=== PATIENT | male | born 1940 ===

== ENCOUNTER 2017-01-07 13:23 | Inpatient (IN) | payer OTHER, MEDICAID ==
[2017-01-07 13:24] VITALS: PULSE 66
[2017-01-07 13:33] VITALS: BMI 34.2
--- NOTE | 2017-01-07 14:10 | ED PDOC ---
Arrival/HPI - General Chief Complaint: Shortness Of Breath Time Seen by Provider: 01/07/17 14:01 Historian: Patient, Caregiver - Critical Care Critical Care Minutes: 30 minutes - History of Present Illness Narrative History of Present Illness (Text): 01/07/17 14:06 Ricardo Red is a 76 year old male complaining of dyspnea on exertion and shortness of breath for 2 weeks. Patient states that he experiences minor intermittent chest discomfort as well. Patient has no other complaint at this time. PMD: Dr. Morton Time/Duration: < week (2 weeks) Symptom Onset: Gradual Symptom Course: Unchanged Activities at Onset: Light Context: Home Past Medical History - Provider Review Nursing Documentation Reviewed: Yes - Infectious Disease Hx of Infectious Diseases: None - Tetanus Immunization Tetanus Immunization: Unknown - Cardiac Hx Cardiac Disorders: Yes Hx Atrial Fibrillation: Yes Hx Congestive Heart Failure: Yes Hx Hypertension: Yes Hx Pacemaker: Yes - Pulmonary Hx Chronic Obstructive Pulmonary Disease (COPD): Yes Hx Pneumonia: Yes Other/Comment: O2 dependent - Neurological Hx Neurological Disorder: No - HEENT Hx HEENT Disorder: (WEARS RX GLASSES) - Renal Hx Renal Failure: Yes (chronic) - Endocrine/Metabolic Hx Diabetes Mellitus Type 2: Yes - Hematological/Oncological Hx Blood Disorders: No - Integumentary Hx Dermatological Disorder: No - Musculoskeletal/Rheumatological Hx Musculoskeletal Disorders: Yes - Gastrointestinal Hx Gastrointestinal Disorders: No - Genitourinary/Gynecological Hx Genitourinary Disorders: Yes Hx Hematuria: Yes - Psychiatric Hx Psychophysiologic Disorder: No (H/O OF CIGARETTE SMOKING 2 CIG/DAY DURING HS ONLY) Hx Substance Use: No - Surgical History Hx Cardiac Catheterization: Yes - Anesthesia Hx Anesthesia Reactions: No Hx Malignant Hyperthermia: No - Suicidal Assessment Feels Threatened In Home Enviroment: No Family/Social History - Physician Review Nursing Documentation Reviewed: Yes Family/Social History: No Known Family HX Smoking Status: Former Smoker Hx Alcohol Use: No Hx Substance Use: No Hx Substance Use Treatment: No Allergies/Home Meds Allergies/Adverse Reactions: Allergies No Known Allergies Allergy (Verified 01/07/17 13:33) Home Medications: Home Meds Medication Instructions Recorded Confirmed Docusate Sodium [Peralta' Stool 100 mg PO TID 02/17/16 01/07/17 Softener Laxative] Furosemide [Lasix] 40 mg PO DAILY 02/17/16 01/07/17 Metolazone 2.5 mg PO BID 02/17/16 01/07/17 Potassium Chloride [K-Dur 20] 20 meq PO BID 02/17/16 01/07/17 Prednisone 5 mg PO DAILY 02/17/16 01/07/17 SITagliptin [Januvia] 50 mg PO DAILY 02/17/16 01/07/17 Warfarin Sodium [Jantoven] 3 mg PO DAILY 02/17/16 01/07/17 Physical Exam - Physical Exam Narrative Physical Exam (Text): - Review of Systems Constitutional: Normal. absent: Fatigue, Weight Change, Fevers Eyes: Normal ENT: Normal Respiratory: Dyspnea on exertion and shortness of breath. absent: Cough, Sputum Cardiovascular: absent: Palpitations, Syncope Gastrointestinal: Normal absent: Abdominal pain, Diarrhea, Nausea, Vomiting Genitourinary: Normal. absent: Dysuria, Frequency, Hematuria Musculoskeletal: Bilateral LE swelling. absent: Arthralgias, Back Pain, Neck Pain Skin: Normal Neurological: Normal absent: Focal Weakness Endocrine: Normal Hemo/Lymphatic: Normal Psychiatric: Normal - Physical exam Patient appears age appropriate, speaking full sentences without difficulty - Systems Exam Head: Present: Atraumatic, Normocephalic Pupils: Present: PERRL Extraocular Muscles: Present: EOMI Conjunctiva: Present: Normal Mouth: Present: Moist Mucous Membranes Neck: Present: Normal Range of Motion. No: MIDLINE TENDERNESS, Paraspinal Tenderness Respiratory/Chest: Bibasalar crackles. No: Accessory Muscle Use, Tachypnic Cardiovascular: Present: Regular Rate and Rhythm, Normal S1, S2, Peripheral Pulses Present. No: Murmurs Abdomen: Present: Normal Bowel Sounds, No: Tenderness, Peritoneal Signs, Rebound, Guarding, Distention Back: Present: Normal Inspection. No: Midline Tenderness, Paraspinal Tenderness Upper Extremity: Present: Normal Inspection. No: Cyanosis, Edema Lower Extremity: Trace bilateral pitting edema. No asymmetry, no tenderness to palpation. Neurological: Present: GCS=15, Speech Normal, cranial nerves II through XII fully intact with no cerebellar abnormality, neuro-sensory fully intact. No focal neurological deficits. Skin: Present: Warm, Dry, Normal Color. No: Rashes Lymphatic: Present: OX3, NI, NC Psychiatric: Present: Alert, Oriented x 3, Normal Insight, Normal Concentration Vital Signs Reviewed: Yes Vital Signs Temp Pulse Resp BP Pulse Ox 05/16/17 17:04 97 H 20 110/78 97 01/07/17 14:20 98 H 36 H 108/94 H 97 01/07/17 13:59 36 H 92 L 01/07/17 13:28 97.6 F 102 H 22 106/63 85 L Temperature: Afebrile Blood Pressure: Normal Pulse: Tachycardic Respiratory Rate: Normal Appearance: Positive for: Well-Appearing, Non-Toxic, Comfortable Pain Distress: None Mental Status: Positive for: Alert and Oriented X 3 Medical Decision Making ED Course and Treatment: 01/07/17 14:10 Impression: 76 year old male complaining of dyspnea on exertion and shortness of breath for two weeks. Differential Diagnosis included but are not limited to: CHF vs. Pneumonia vs. Anemia Plan: -- Chest X-ray -- Labs -- Aspirin -- Reassess and disposition Prior Visits: Notes and results from previous visits were reviewed. Patient last seen in the ED on 02/17/16 for a near syncopal episode 3 days before. Patient was admitted to Telemetry for further evaluation. Progress Notes: 01/07/17 14:55 Chest X-ray: Creator : Gene Wild MD Impression: Cardiomegaly, vascular congestion. b/l infiltrates. 01/07/17 16:[address] Lockett, who states that he will evaluate. 01/07/17 16:17 Patient did not receive initial fluid bolus due to suspected CHF. 01/07/17 17:03 pt tolerating bipap well accepted to the MICU by Dr. Lockett Case discussed with Dr. Morton, who is aware that patient is going to ICU under his service. - Critical Care Critical Care Minutes: 30 minutes - Lab Interpretations Lab Results: 01/07/17 14:21 01/07/17 14:21 Lab Results 01/07/17 16:45: pCO2 41, pO2 71.0 L, HCO3 34.3 H, ABG pH 7.53 H, ABG Total CO2 35.6 H, ABG O2 Saturation 94.3 L, ABG Base Excess 10.5 H, ABG Potassium 2.4 L*, Glucose 113 H, Lactate 1.2, FiO2 40.0, Inspiratory BiPAP 12, Sodium 130.0 L, Chloride 89.0 L, Arterial Blood Potassium 2.4 L* 01/07/17 14:21: Sodium 130 L, Potassium 3.7, Chloride 78 L, Carbon Dioxide > 40 H D, Anion Gap 16, BUN 80 H, Creatinine 1.7 H, Est GFR ( Amer) 48, Est GFR (Non-Af Amer) 40, Random Glucose 139 H, Calcium 9.9, Total Bilirubin 2.1 H, AST 34, ALT 25, Alkaline Phosphatase 122, Lactate Dehydrogenase 799 H, Total Creatine Kinase 44, Troponin I 0.03 D, NT-Pro-B Natriuret Pep 541 H, Total Protein 8.3, Albumin 4.5, Globulin 3.8, Albumin/Globulin Ratio 1.2 01/07/17 14:21: PT 17.4 H, INR 1.61 H, APTT 36.5 H 01/07/17 14:21: WBC 12.8 H, RBC 5.44, Hgb 17.1, Hct 49.7, MCV 91.4, MCH 31.4, MCHC 34.4, RDW 17.6 H, Plt Count 283, MPV 9.1, Gran % 71.6 H, Lymph % (Auto) 18.9 L, Divide % (Auto) 8.9 H, Eos % (Auto) 0.5 L, Baso % (Auto) 0.1, Gran # 9.15 H, Lymph # 2.4, Divide # 1.1 H, Eos # 0.1, Baso # 0.01 I have reviewed the lab results: Yes - RAD Interpretation Radiology Orders: 01/07/17 14:04 CHEST PORTABLE [RAD] Stat - Medication Orders Current Medication Orders: Albuterol/Ipratropium (Duoneb 3 Mg/0.5 Mg (3 Ml) Ud) 3 ml IH Q4H [facility] Last Admin: 01/07/17 21:06 Dose: 3 ml Enoxaparin Sodium (Lovenox) 100 mg SC Q12H [facility] PRN Reason: Protocol Last Admin: 01/07/17 21:02 Dose: 100 mg Sodium Chloride (Sodium Chloride 0.9%) 1,000 mls @ 100 mls/hr IV .Q10H [facility] Last Admin: 01/07/17 18:28 Dose: 100 mls/hr Ceftriaxone Sodium (Rocephin 1 Gram Ivpb) 1 gm in 100 mls @ 100 mls/hr IVPB DAILY [facility] PRN Reason: Protocol Azithromycin (Zithromax 500mg In Ns) 500 mg in 250 mls @ 167 mls/hr IVPB DAILY [facility] PRN Reason: Protocol Insulin Human Regular (Humulin R High) 0 units SC Q4H [facility] PRN Reason: Protocol Last Admin: 01/07/17 22:16 Dose: Not Given Non-Admin Reason: Blood Sugar Parameter Methylprednisolone (Solu-Medrol) 40 mg IVP Q8H [facility] Last Admin: 01/07/17 17:15 Dose: 40 mg Pantoprazole Sodium (Protonix Inj) 40 mg IVP DAILY [facility] Discontinued Medications Aspirin (Aspirin Chewable) 324 mg PO STAT STA Stop: 01/07/17 14:05 Last Admin: 01/07/17 14:12 Dose: 324 mg Furosemide (Lasix) 40 mg IVP STAT STA Stop: 01/07/17 14:51 Last Admin: 01/07/17 15:19 Dose: Not Given Non-Admin Reason: Patient Refused Comments: As per patient primary physician stated he is dehydrated and can not take this medication. Dr. Garvey notified. Ceftriaxone Sodium (Rocephin 1 Gram Ivpb) 1 gm in 100 mls @ 200 mls/hr IV STAT STA PRN Reason: Protocol Stop: 01/07/17 16:19 Last Admin: 01/07/17 16:10 Dose: 200 mls/hr Azithromycin (Zithromax 500mg In Ns) 500 mg in 250 mls @ 166.667 mls/hr IV STAT STA PRN Reason: Protocol Stop: 01/07/17 17:19 Last Admin: 01/07/17 16:45 Dose: 166.667 mls/hr Sodium Chloride (Sodium Chloride 0.9%) 1,000 mls @ 1,000 mls/hr IV .Q1H STA Stop: 01/07/17 17:16 Last Admin: 01/07/17 16:20 Dose: 1,000 mls/hr Sodium Chloride (Sodium Chloride 0.9%) 1,000 mls @ 999 mls/hr IV .Q1H1M STA Stop: 01/07/17 17:55 Last Admin: 01/07/17 17:29 Dose: 999 mls/hr Potassium Chloride (Potassium Chloride 20 Meq/100 Ml) 20 meq in 100 mls @ 50 mls/hr IVPB Q2H [facility] Stop: 01/07/17 21:14 Last Admin: 01/07/17 20:48 Dose: Potassium Chloride (Potassium Chloride Oral Soln) 40 meq PO ONCE ONE Stop: 01/07/17 20:50 Last Admin: 01/07/17 22:18 Dose: 40 meq Potassium Chloride (K-Dur 20 Meq Er Tab) 40 meq PO ONCE ONE Stop: 01/07/17 20:50 Last Admin: 01/07/17 22:22 Dose: - Scribe Statement The provider has reviewed the documentation as recorded by the Beck Mora Provider Scribe Attestation: All medical record entries made by the Beck were at my direction and personally dictated by me. I have reviewed the chart and agree that the record accurately reflects my personal performance of the history, physical exam, medical decision making, and the department course for this patient. I have also personally directed, reviewed, and agree with the discharge instructions and disposition. Disposition/Present on Arrival - Present on Arrival Any Indicators Present on Arrival: No History of DVT/PE: No History of Uncontrolled Diabetes: No Urinary Catheter: No History of Decub. Ulcer: No History Surgical Site Infection Following: None - Disposition Have Diagnosis and Disposition been Completed?: Yes Diagnosis: Pneumonia Disposition: HOSPITALIZED Disposition Time: 16:58 Patient Plan: Admission Condition: SERIOUS
[2017-01-07 14:22] LABS: ADD MANUAL DIFF? NO
[2017-01-07 14:24] LABS: BASO # 0.01 K/mm3 (0.0-2.0); BASO % 0.1 % (0.0-3.0); EOS # 0.1 (0.0-0.7); EOS % 0.5 % (1.5-5.0); GRAN # 9.15 (1.4-6.5); GRAN % 71.6 % (50.0-68.0); HEMATOCRIT 49.7 % (42.0-52.0); LYMPH # 2.4 (1.2-3.4); LYMPH % 18.9 % (22.0-35.0); MEAN CELL VOLUME 91.4 fL (80.0-105.0); MEAN CORPUSCULAR HEMOGLOBIN 31.4 pg (25.0-35.0); MEAN CORPUSCULAR HGB CONC 34.4 g/dl (31.0-37.0); MEAN PLATELET VOLUME 9.1 fl (7.0-11.0); MONO # 1.1 (0.1-0.6); MONO % 8.9 % (1.0-6.0); PLATELET COUNT 283 10^3/uL (120.0-450.0); RED CELL DISTRIBUTION WIDTH 17.6 % (11.5-14.5); WHITE BLOOD COUNT 12.8 10^3/ul (4.5-11.0)
[2017-01-07 14:34] LABS: ALB/GLOB RATIO 1.2 (1.1-1.8); ALKALINE PHOSPHATASE 122 U/L (38-133); ALT/SGPT 25 U/L (7-56); AST/SGOT 34 U/L (15-59); BILIRUBIN,TOTAL 2.1 mg/dL (0.2-1.3); BLOOD UREA NITROGEN 80 mg/dL (7-21); CALCIUM 9.9 mg/dL (8.4-10.5); CHLORIDE 78 mmol/L (98-107); GFR AFRICAN-AMERICAN 48; GLUCOSE,RANDOM 139 mg/dL (70-110); POTASSIUM 3.7 mmol/L (3.6-5.0); SODIUM 130 mmol/L (132-148); TOTAL PROTEIN 8.3 g/dL (5.8-8.3)
[2017-01-07 14:36] LABS: INR 1.61 (0.93-1.08); PARTIAL THROMBOPLASTIN TIME 36.5 Seconds (23.7-30.8)
[2017-01-07 14:39] LABS: CARBON DIOXIDE > 40 mmol/L (21-33)
[2017-01-07 14:46] LABS: TROPONIN I 0.03 ng/mL
--- NOTE | 2017-01-07 15:02 | RAD ---
HISTORY: cough COMPARISON: 02/17/2016 FINDINGS: LUNGS: Patchy bilateral lower lobe infiltrates. PLEURA: No significant pleural effusion identified, no pneumothorax apparent. CARDIOVASCULAR: Moderate cardiomegaly OSSEOUS STRUCTURES: No significant abnormalities. VISUALIZED UPPER ABDOMEN: Normal. OTHER FINDINGS: None. IMPRESSION: Patchy bilateral lower lobe infiltrates. Moderate cardiomegaly
[2017-01-07] MEDS ORDERED: Azithromycin 500MG/NS 250ml 500 MG/250 ML BAG IV STA (15:50)
[2017-01-07] MEDS ORDERED: cefTRIAXone 1 gm 1 GM/100 ML BAG IV STA (15:50)
[2017-01-07] MEDS ORDERED: Sodium Chloride 0.9% 1,000 ML IV STA ×2 (16:17→16:55)
[2017-01-07 16:52] LABS: ARTERIAL BLOOD GAS HCO3 34.3 mmol/L (21-28); ARTERIAL BLOOD GAS PH 7.53 (7.35-7.45)
[2017-01-07] MEDS ORDERED: Heparin25000 units/250ml 1/2NS 25,000 UNITS/250 ML BAG IV PRN (16:58)
[2017-01-07] MEDS: Albuterol-Ipratrop 3 mg / 0.5 (3 ml) UD IH SCH ×2 (17:15→21:06)
[2017-01-07] MEDS: MethylPREDNISolone 40 mg Vial IVP SCH (17:15)
[2017-01-07] MEDS: Insulin Reg-HIGH-Coverage SC SCH ×2 (17:21→22:16)
--- NOTE | 2017-01-07 17:50 | CON ---
DATE: 01/07/2017 This 76-year-old gentleman with history of COPD and related to pulmonary fibrosis, obstructive sleep apnea, coronary artery disease, DM atrial fibrillation on Coumadin, who presented with increased shortness of breath for last 2 weeks. He also had increased cough and sputum production. The sputum was of whitish in color. No nausea, no vomiting. No diarrhea, no constipation, no chest pain. PAST MEDICAL HISTORY: COPD, obstructive sleep apnea, pulmonary fibrosis, coronary artery disease, hypertension and atrial fibrillation on Coumadin. SOCIAL HISTORY: The patient is an ex-smoker. No alcohol or illicit drug abuse. FAMILY HISTORY: Noncontributory. HOME MEDICATIONS: Colace, Lasix, metolazone, prednisone, Januvia, warfarin. REVIEW OF SYSTEMS: Revealed 12 organ system other than mentioned in history of present illness is negative. PHYSICAL EXAMINATION: VITAL SIGNS: Heart rate 98, blood pressure 108/94, oxygen saturation 97% on BiPAP 12/6 with FiO2 40%. HEAD AND NECK: Atraumatic. LUNGS: A few wheezes bilaterally. HEART: Regular rate and rhythm. S1, S2 distant. ABDOMEN: Soft, nontender, nondistended. MUSCULOSKELETAL: No C/C/E. SKIN: Dry. PSYCHIATRIC: The patient is alert, awake, in mild respiratory distress due to shortness of breath. LABORATORY DATA: WBC 12.8, hemoglobin 17.1, platelet count 283. Sodium 130, potassium 3.7, chloride 78, carbon dioxide more than 40, BUN 80, creatinine 1.7. AST 34, ALT 25. ProBNP 541. Troponin 0.03. INR 1.621. ABG 7.53/41/71 Chest x-ray showed some chronic interstitial changes. Some patchy infiltrates, bibasilar. EKG showed no acute specific ischemic changes. ASSESSMENT AND PLAN: This is a 76-year-old gentleman with what appears to be chronic obstructive pulmonary disease exacerbation and coincidental contraction alkalosis. His proBNP only nearly normal (slight elevation may be due to cor pulmonale), while he appears to be dehydrated on physical exam, on Lasix at home and was put on BPAP in ER, which may have prevented some compensatory ventilatory adjustment. His bicarb more then 40. I will d/c BPAP and re-evaluate , stop Lasix and give 1L NS with subsequent maintainance IVF. I will continue bronchodilators, steroid taper and Abx. Will start septic workup with blood and urine culture, urine for legionella and strep ag, procalcitonin. Will start TAC with lovenox (discussed dose with pharmacist--despite CAITY 100 mg sc bid). GI prophylaxis. I would continue to target euvolemia, euglycemia, normothermia and oxygen saturation more than 90%. ccm time 40 min Dejuan Lockett MD cc: [id number] TT: 01/07/2017 17:50:07 Confirmation # [id number] Dictation # [id number] josé miguel MORAN
[2017-01-07] MEDS: Sodium Chloride 0.9% 1,000 ML IV SCH (18:28)
[2017-01-07] MEDS ORDERED: Potassium Chloride 40 mEq/30 ml LIQ UD PO ONE (20:49)
[2017-01-07] MEDS ORDERED: Potassium Chloride 20 mEq ER Tab PO ONE (20:49)
[2017-01-07] MEDS: Enoxaparin 100 mg Syringe SC SCH (21:02)
--- NOTE | 2017-01-07 22:29 | CARD ---
APPROVED REPORT EKG Measurement Heart [id number] <Conclusion> Normal sinus rhythm Left axis deviation Anteroseptal infarct, age undetermined Abnormal ECG
[2017-01-08] MEDS: Albuterol-Ipratrop 3 mg / 0.5 (3 ml) UD IH SCH ×7 (01:00→23:13)
[2017-01-08] MEDS: Insulin Reg-HIGH-Coverage SC SCH ×6 (01:00→23:05)
[2017-01-08] MEDS: MethylPREDNISolone 40 mg Vial IVP SCH ×3 (01:00→18:02)
[2017-01-08] MEDS: Sodium Chloride 0.9% 1,000 ML IV SCH (06:00)
[2017-01-08] MEDS: Enoxaparin 100 mg Syringe SC SCH ×2 (06:23→18:01)
[2017-01-08 06:45] LABS: ADD MANUAL DIFF? NO
[2017-01-08 07:04] LABS: BASO # 0.01 K/mm3 (0.0-2.0); BASO % 0.1 % (0.0-3.0); GRAN # 6.48 (1.4-6.5); GRAN % 86.1 % (50.0-68.0); HEMATOCRIT 45.2 % (42.0-52.0); LYMPH # 0.9 (1.2-3.4); LYMPH % 11.3 % (22.0-35.0); MEAN CELL VOLUME 91.5 fL (80.0-105.0); MEAN CORPUSCULAR HEMOGLOBIN 30.4 pg (25.0-35.0); MEAN CORPUSCULAR HGB CONC 33.2 g/dl (31.0-37.0); MONO # 0.2 (0.1-0.6); MONO % 2.5 % (1.0-6.0); PLATELET COUNT 252 10^3/uL (120.0-450.0); RED CELL DISTRIBUTION WIDTH 17.7 % (11.5-14.5); WHITE BLOOD COUNT 7.5 10^3/ul (4.5-11.0)
[2017-01-08 07:16] LABS: ALB/GLOB RATIO 1.1 (1.1-1.8); BILIRUBIN,TOTAL 1.4 mg/dL (0.2-1.3); POTASSIUM 3.3 mmol/L (3.6-5.0)
[2017-01-08 08:16] LABS: MAGNESIUM 2.4 mg/dL (1.7-2.2)
[2017-01-08 08:19] LABS: ARTERIAL BLOOD GAS HCO3 30.6 mmol/L (21-28); ARTERIAL BLOOD GAS O2 CAPACITY 20.6 mL/dl (16-24); ARTERIAL BLOOD GAS O2 CONTENT 19.2 ML/dl (15-23); ARTERIAL BLOOD GAS PH 7.45 (7.35-7.45); ARTERIAL BLOOD HGB O2 SAT 92.1 % (95.0-98.0); HHB 6.8 % (0-5)
[2017-01-08] MEDS: Potassium Chloride 20 mEq ER Tab PO SCH ×4 (10:45→21:00)
[2017-01-08] MEDS: cefTRIAXone 1 gm 1 GM/100 ML BAG IVPB SCH (10:48)
[2017-01-08] MEDS: Azithromycin 500MG/NS 250ml 500 MG/250 ML BAG IVPB SCH (10:49)
--- NOTE | 2017-01-08 13:20 | CP.CCUPN ---
<Manuel Childers - Last Filed: 01/08/17 13:14> CCU Subjective - Physician Review Events Since Last Encounter (Free Text): 01/08/17 13:16 76 year old male with a PMH of CAD, HTN, DEJAN, DM, A-fib on coumadin, and CHF who presented to [facility] [place] [facility] on 01/07/17 with complaints of shortness of breath for 2 weeks and cough productive of white sputum. Patient was seen and examined at bedside with at bedside. Patient is doing much better today and states that his breathing has improved. Patient denies any more productive cough or any other complaints at this time. at bedside had multiple questions, all of which were welcome and answered to her satisfaction. CCU Objective - Vital Signs / Intake & Output Intake and Output (Last 8hrs): Intake & Output 01/07/17 01/08/17 01/08/17 22:59 06:59 14:59 Intake Total 3100 Output Total 700 Balance 2400 Weight 99.201 kg 98.974 kg Intake: IV 3000 Right Hand 3000 Oral 100 Output: Urine 700 Urine, Voided 700 Other: # Bowel Movements 0 - Physical Exam Head: Positive for: Atraumatic, Normocephalic Pupils: Positive for: PERRL Extroacular Muscles: Positive for: EOMI Conjunctiva: Positive for: Normal. Negative for: Injected, Icteric Ears: Positive for: Normal Mouth: Positive for: Moist Mucous Membranes, Normal Tounge. Negative for: Dry Pharnyx: Positive for: Normal. Negative for: ERYTHEMA, EXUDATE Nose (External): Positive for: Atraumatic Neck: Positive for: Trachea Midline. Negative for: JVD, Lymphadenopathy Respiratory/Chest: Positive for: Clear to Auscultation, Wheezes (mild bibasilar) , Decreased Breath Sounds (mildly throughout). Negative for: Respiratory Distress, Accessory Muscle Use Cardiovascular: Positive for: Normal S1, S2, Irregular Rhythm. Negative for: Murmurs, Rub, Gallop Abdomen: Positive for: Normal Bowel Sounds. Negative for: Tenderness, Distention, Peritoneal Signs, Guarding Back: Negative for: Midline Tenderness, Paraspinal Tenderness Upper Extremity: Positive for: Normal Inspection, NORMAL PULSES, Capillary Refill < 2s. Negative for: Cyanosis, Edema Lower Extremity: Positive for: Normal Inspection, NORMAL PULSES, Capillary Refill < 2 s. Negative for: Edema, CALF TENDERNESS Neurological: Positive for: GCS=15, CN II-XII Intact, Speech Normal Skin: Positive for: Warm, Dry, Normal Color. Negative for: Rashes - Medications Active Medications: Active Medications Generic Name Dose Route Start Last Admin Trade Name Freq PRN Reason Stop Dose Admin Albuterol/Ipratropium 3 ml 01/07/17 17:00 01/08/17 07:59 Duoneb 3 Mg/0.5 Mg (3 Ml) Ud IH 3 ml Q4H ZEKE Administration Enoxaparin Sodium 100 mg 01/07/17 18:30 01/08/17 06:23 Lovenox SC 100 mg Q12H ZEKE Administration Protocol Ceftriaxone Sodium 1 gm in 100 mls @ 100 mls/hr 01/08/17 10:00 01/08/17 10:48 Rocephin 1 Gram Ivpb IVPB 100 mls/hr DAILY ZEKE Administration Protocol Azithromycin 500 mg in 250 mls @ 167 mls/hr 01/08/17 10:00 01/08/17 10:49 Zithromax 500mg In Ns IVPB 167 mls/hr DAILY ZEKE Administration Protocol Insulin Human Regular 0 units 01/08/17 11:30 01/08/17 12:16 Humulin R High SC 7 units ACHS ZEKE Administration Protocol Methylprednisolone 40 mg 01/07/17 17:00 01/08/17 10:52 Solu-Medrol IVP 40 mg Q8H ZEKE Administration Pantoprazole Sodium 40 mg 01/08/17 10:00 01/08/17 10:47 Protonix Inj IVP 40 mg DAILY ZEKE Administration Potassium Chloride 40 meq 01/08/17 08:00 01/08/17 12:19 K-Dur 20 Meq Er Tab PO 01/08/17 20:01 40 meq Q4 ZEKE Administration - Patient Studies Lab Studies: Lab Studies 01/08/17 01/08/17 01/08/17 Range/Units 08:10 06:10 06:10 WBC 7.5 D (4.5-11.0) 10^3/ul RBC 4.94 (3.5-6.1) 10^6/uL Hgb 15.0 (14.0-18.0) gm/dL Hct 45.2 (42.0-52.0) % MCV 91.5 (80.0-105.0) fL MCH 30.4 (25.0-35.0) pg MCHC 33.2 (31.0-37.0) g/dl RDW 17.7 H (11.5-14.5) % Plt Count 252 (120.0-450.0) 10^3/uL MPV 9.0 (7.0-11.0) fl Gran % 86.1 H (50.0-68.0) % Lymph % (Auto) 11.3 L (22.0-35.0) % Branch % (Auto) 2.5 (1.0-6.0) % Eos % (Auto) 0.0 L (1.5-5.0) % Baso % (Auto) 0.1 (0.0-3.0) % Gran # 6.48 (1.4-6.5) Lymph # 0.9 L (1.2-3.4) Branch # 0.2 (0.1-0.6) Eos # 0.0 (0.0-0.7) Baso # 0.01 (0.0-2.0) K/mm3 pCO2 44 (35-45) mm/Hg pO2 65.0 L (80-100) mm/Hg HCO3 30.6 H (21-28) mmol/L ABG pH 7.45 (7.35-7.45) ABG Total CO2 32.0 H (22-28) mmol.L ABG O2 Saturation 93.1 L (95-98) % ABG O2 Content 19.2 (15-23) ML/dl ABG Base Excess 5.7 H (-2.0-3.0) mmol/L ABG Hemoglobin 14.8 (11.7-17.4) g/dL ABG Carboxyhemoglobin 1.0 (0.5-1.5) % POC ABG HHb (Measured) 6.8 H (0-5) % ABG Methemoglobin 0.0 (0.0-3.0) % ABG O2 Capacity 20.6 (16-24) mL/dl Hgb O2 Saturation 92.1 L (95.0-98.0) % FiO2 28.0 % Sodium 135 (132-148) mmol/L Potassium 3.3 L (3.6-5.0) mmol/L Chloride 89 L (98-107) mmol/L Carbon Dioxide 33 (21-33) mmol/L Anion Gap 16 (10-20) BUN 61 H (7-21) mg/dL Creatinine 1.4 (0.5-1.4) mg/dL Est GFR ( Amer) 60 Est GFR (Non-Af Amer) 50 Random Glucose 198 H (70-110) mg/dL Calcium 9.0 (8.4-10.5) mg/dL Magnesium 2.4 H (1.7-2.2) mg/dL Total Bilirubin 1.4 H (0.2-1.3) mg/dL AST 31 (15-59) U/L ALT 28 (7-56) U/L Alkaline Phosphatase 101 (38-133) U/L Total Protein 7.0 (5.8-8.3) g/dL Albumin 3.7 (3.0-4.8) g/dL Globulin 3.3 gm/dL Albumin/Globulin Ratio 1.1 (1.1-1.8) Procalcitonin (0.19-0.49) NG/ML 01/07/17 Range/Units 18:00 WBC (4.5-11.0) 10^3/ul RBC (3.5-6.1) 10^6/uL Hgb (14.0-18.0) gm/dL Hct (42.0-52.0) % MCV (80.0-105.0) fL MCH (25.0-35.0) pg MCHC (31.0-37.0) g/dl RDW (11.5-14.5) % Plt Count (120.0-450.0) 10^3/uL MPV (7.0-11.0) fl Gran % (50.0-68.0) % Lymph % (Auto) (22.0-35.0) % Branch % (Auto) (1.0-6.0) % Eos % (Auto) (1.5-5.0) % Baso % (Auto) (0.0-3.0) % Gran # (1.4-6.5) Lymph # (1.2-3.4) Branch # (0.1-0.6) Eos # (0.0-0.7) Baso # (0.0-2.0) K/mm3 pCO2 (35-45) mm/Hg pO2 (80-100) mm/Hg HCO3 (21-28) mmol/L ABG pH (7.35-7.45) ABG Total CO2 (22-28) mmol.L ABG O2 Saturation (95-98) % ABG O2 Content (15-23) ML/dl ABG Base Excess (-2.0-3.0) mmol/L ABG Hemoglobin (11.7-17.4) g/dL ABG Carboxyhemoglobin (0.5-1.5) % POC ABG HHb (Measured) (0-5) % ABG Methemoglobin (0.0-3.0) % ABG O2 Capacity (16-24) mL/dl Hgb O2 Saturation (95.0-98.0) % FiO2 % Sodium (132-148) mmol/L Potassium (3.6-5.0) mmol/L Chloride (98-107) mmol/L Carbon Dioxide (21-33) mmol/L Anion Gap (10-20) BUN (7-21) mg/dL Creatinine (0.5-1.4) mg/dL Est GFR ( Amer) Est GFR (Non-Af Amer) Random Glucose (70-110) mg/dL Calcium (8.4-10.5) mg/dL Magnesium (1.7-2.2) mg/dL Total Bilirubin (0.2-1.3) mg/dL AST (15-59) U/L ALT (7-56) U/L Alkaline Phosphatase (38-133) U/L Total Protein (5.8-8.3) g/dL Albumin (3.0-4.8) g/dL Globulin gm/dL Albumin/Globulin Ratio (1.1-1.8) Procalcitonin 0.05 L (0.19-0.49) NG/ML Laboratory Results - last 24 hr 01/07/17 01/08/17 01/08/17 18:00 06:10 06:10 WBC 7.5 D RBC 4.94 Hgb 15.0 Hct 45.2 MCV 91.5 MCH 30.4 MCHC 33.2 RDW 17.7 H Plt Count 252 MPV 9.0 Gran % 86.1 H Lymph % (Auto) 11.3 L Branch % (Auto) 2.5 Eos % (Auto) 0.0 L Baso % (Auto) 0.1 Gran # 6.48 Lymph # 0.9 L Branch # 0.2 Eos # 0.0 Baso # 0.01 pCO2 pO2 HCO3 ABG pH ABG Total CO2 ABG O2 Saturation ABG O2 Content ABG Base Excess ABG Hemoglobin ABG Carboxyhemoglobin POC ABG HHb (Measured) ABG Methemoglobin ABG O2 Capacity Hgb O2 Saturation FiO2 Sodium 135 Potassium 3.3 L Chloride 89 L Carbon Dioxide 33 Anion Gap 16 BUN 61 H Creatinine 1.4 Est GFR ( Amer) 60 Est GFR (Non-Af Amer) 50 Random Glucose 198 H Calcium 9.0 Magnesium 2.4 H Total Bilirubin 1.4 H AST 31 ALT 28 Alkaline Phosphatase 101 Total Protein 7.0 Albumin 3.7 Globulin 3.3 Albumin/Globulin Ratio 1.1 Procalcitonin 0.05 L 01/08/17 08:10 WBC RBC Hgb Hct MCV MCH MCHC RDW Plt Count MPV Gran % Lymph % (Auto) Branch % (Auto) Eos % (Auto) Baso % (Auto) Gran # Lymph # Branch # Eos # Baso # pCO2 44 pO2 65.0 L HCO3 30.6 H ABG pH 7.45 ABG Total CO2 32.0 H ABG O2 Saturation 93.1 L ABG O2 Content 19.2 ABG Base Excess 5.7 H ABG Hemoglobin 14.8 ABG Carboxyhemoglobin 1.0 POC ABG HHb (Measured) 6.8 H ABG Methemoglobin 0.0 ABG O2 Capacity 20.6 Hgb O2 Saturation 92.1 L FiO2 28.0 Sodium Potassium Chloride Carbon Dioxide Anion Gap BUN Creatinine Est GFR ( Amer) Est GFR (Non-Af Amer) Random Glucose Calcium Magnesium Total Bilirubin AST ALT Alkaline Phosphatase Total Protein Albumin Globulin Albumin/Globulin Ratio Procalcitonin Fingerstick Blood Sugar Results: 260 Results Reviewed to Date: Yes Review of Systems - EENT Eyes: absent: Blind Spots, Blurred Vision Ears: absent: Ear Discharge, Ear Pain Nose/Mouth/Throat: absent: Epistaxis, Nasal Congestion - Cardiovascular Cardiovascular: absent: Chest Pain, Palpitations - Respiratory Respiratory: absent: Cough, Dyspnea - Gastrointestinal Gastrointestinal: absent: Abdominal Pain, Nausea, Vomiting - Genitourinary Genitourinary: absent: Dysuria, Hematuria - Musculoskeletal Musculoskeletal: absent: Stiffness, Tingling - Integumentary Integumentary: absent: Pruritus, Rash - Neurological Neurological: absent: Paresthesias, Tingling, Tremor Critical Care Progress Note - Prophylaxis GI Prophylaxis GI: PPI - Nutrition Nutrition: Nutrition Category Date Time Status Consistent Carbohydrate [DIET] Diets 01/08/17 Breakfast Ordered Assessment/Plan - Assessment and Plan (Free Text) Assessment: 76 year old male with a PMH of CAD, HTN, DEJAN, DM, A-fib on coumadin, and CHF who presented with complaints of shortness of breath for 2 weeks and cough productive of white sputum, found to have contraction alkalosis with bilateral patchy infiltrates. Plan: Neurological AAOx4, nonfocal, neurologically intact Cardiovascular Hemodynamically stable at this time Pulmonary Satting well on NC 2L, maintain O2 >92% BiPAP overnight 07/30/ CXR showed bilateral infiltrates, continue ceftriaxone/azithromycin day 2 Continue PRN nebs Continue solumedrol 40q8 Procal negative Renal/ Fluids / Electrolytes 3100/700 Came in with contraction alkalosis after increased lasix dosing BUN and Cr improved since yesterday with hydration Holding lasix Alkalosis improved Potassium repleted Encouraged PO hydration GI Elevated bilirubin likely from dehydration, downtrending Continue mod carb const diet Infectious disease On azithromycin/ceftriaxone day 2 Afebrile with no leukocytosis Hematology Hgb stable Hemodynamically stable Endocrine Maintain euglycemia Accuchecks achs and RISS High Prophylaxis PPI Dispo: likely transfer to remote telemetry today, will discuss with primary Patient was seen and examined and case was discussed at length with attending physician. - Date & Time Date: 01/08/17 Time: 11:00 <Dejuan Lockett - Last Filed: 01/13/17 15:41> CCU Objective - Vital Signs / Intake & Output Intake and Output (Last 8hrs): Intake & Output 01/13/17 01/13/17 01/13/17 06:59 14:59 22:59 Intake Total 660 Output Total 1401 Balance -741 Intake: Oral 660 Output: Urine 1400 Urine, Voided 1400 Stool 1 Urine, Voided 1 - Medications Active Medications: Active Medications Generic Name Dose Route Start Last Admin Trade Name Freq PRN Reason Stop Dose Admin Albuterol/Ipratropium 3 ml 01/08/17 20:00 01/13/17 11:48 Duoneb 3 Mg/0.5 Mg (3 Ml) Ud IH 3 ml Q4H ZEKE Administration Docusate Sodium 100 mg 01/11/17 18:00 01/13/17 09:34 Colace PO 100 mg BID ZEKE Administration Furosemide 40 mg 01/10/17 10:00 01/13/17 09:34 Lasix PO 40 mg DAILY ZEKE Administration Ceftriaxone Sodium 1 gm in 100 mls @ 100 mls/hr 01/08/17 10:00 01/13/17 09:34 Rocephin 1 Gram Ivpb IVPB 100 mls/hr DAILY ZEKE Administration Protocol Azithromycin 500 mg in 250 mls @ 167 mls/hr 01/08/17 10:00 01/13/17 09:33 Zithromax 500mg In Ns IVPB 167 mls/hr DAILY ZEKE Administration Protocol Insulin Human Regular 0 units 01/08/17 11:30 01/13/17 11:47 Humulin R High SC Not Given ACHS ZEKE Protocol Methylprednisolone 40 mg 01/13/17 10:00 01/13/17 09:35 Solu-Medrol IVP 40 mg Q12 ZEKE Administration Pantoprazole Sodium 40 mg 01/12/17 07:30 01/13/17 09:34 Protonix Ec Tab PO 40 mg ACB ZEKE Administration Polyethylene Glycol 17 gm 01/11/17 14:00 01/13/17 09:34 Miralax PO 17 gm DAILY ZEKE Administration Warfarin Sodium 3 mg 01/10/17 18:00 01/12/17 17:57 Coumadin PO 3 mg 1800 ZEKE Administration Protocol - Patient Studies Lab Studies: Lab Studies 01/13/17 01/13/17 01/13/17 Range/Units 11:10 07:34 07:00 PT 18.5 H (9.9-11.8) Seconds INR 1.71 H (0.93-1.08) POC Glucose (mg/dL) 132 H 187 H (65-110) mg/dL Procalcitonin (0.19-0.49) NG/ML 01/12/17 01/12/17 01/12/17 Range/Units 22:04 16:19 11:26 PT (9.9-11.8) Seconds INR (0.93-1.08) POC Glucose (mg/dL) 218 H 385 H 109 (65-110) mg/dL Procalcitonin (0.19-0.49) NG/ML 01/12/17 01/12/17 01/11/17 Range/Units 08:00 07:20 21:24 PT (9.9-11.8) Seconds INR (0.93-1.08) POC Glucose (mg/dL) 154 H 192 H (65-110) mg/dL Procalcitonin < 0.05 L (0.19-0.49) NG/ML 01/11/17 01/11/17 01/11/17 Range/Units 17:06 11:18 07:20 PT (9.9-11.8) Seconds INR (0.93-1.08) POC Glucose (mg/dL) 318 H 173 H 198 H (65-110) mg/dL Procalcitonin (0.19-0.49) NG/ML 01/10/17 01/10/17 Range/Units 21:42 16:49 PT (9.9-11.8) Seconds INR (0.93-1.08) POC Glucose (mg/dL) 183 H 254 H (65-110) mg/dL Procalcitonin (0.19-0.49) NG/ML Laboratory Results - last 24 hr 01/10/17 01/10/17 01/11/17 16:49 21:42 07:20 PT INR POC Glucose (mg/dL) 254 H 183 H 198 H Procalcitonin 01/11/17 01/11/17 01/11/17 11:18 17:06 21:24 PT INR POC Glucose (mg/dL) 173 H 318 H 192 H Procalcitonin 01/12/17 01/12/17 01/12/17 07:20 08:00 11:26 PT INR POC Glucose (mg/dL) 154 H 109 Procalcitonin < 0.05 L 01/12/17 01/12/17 01/13/17 16:19 22:04 07:00 PT 18.5 H INR 1.71 H POC Glucose (mg/dL) 385 H 218 H Procalcitonin 01/13/17 01/13/17 07:34 11:10 PT INR POC Glucose (mg/dL) 187 H 132 H Procalcitonin Critical Care Progress Note - Nutrition Nutrition: Nutrition Category Date Time Status Consistent Carbohydrate [DIET] Diets 01/08/17 Breakfast Ordered Addendum Addendum: 01/13/17 15:38 patient was seen, examined and discusssed with Dr. Childers at bedside shoudler to shoulder. His note reflects my exam, assessment and plan, except as below. Meds/ Labs/ONE reviewed. 76 yo with COPD exacerbation, admitted with overdiuresis, contraction alkalosis with added insufficient respiratorycompensation after BPAP applied in ER. Fluids given, Lasix stopped, BPAP removed. Steroids taper, bronchodilators and abx started. patient substantially improved. Respiratory and hemodynamically better. Ok to downgrade to tele ccm time 40 min
[2017-01-08 17:06] LABS: ALB/GLOB RATIO 1.1 (1.1-1.8); ALKALINE PHOSPHATASE 80 U/L (38-133); ALT/SGPT 26 U/L (7-56); AST/SGOT 32 U/L (15-59); BLOOD UREA NITROGEN 55 mg/dL (7-21); CARBON DIOXIDE 31 mmol/L (21-33); CHLORIDE 93 mmol/L (98-107); GFR AFRICAN-AMERICAN > 60; GLUCOSE,RANDOM 118 mg/dL (70-110); POTASSIUM 4.2 mmol/L (3.6-5.0); SODIUM 135 mmol/L (132-148); TOTAL PROTEIN 6.7 g/dL (5.8-8.3)
--- NOTE | 2017-01-08 18:09 | HP ---
HISTORY OF PRESENT ILLNESS: The patient is a 76-year-old male with a history of COPD who presented t o the Emergency Department on 01/07/2017 with increasing shortness of breath and dyspnea on exertion. The patient also complained of a nonproductive cough with no hemoptysis, no fever, no chills. The patient was evaluated in the Emergency Room and chest x-ray showed bilateral patchy infiltrates at th e bases. The patient is admitted for further evaluation and management to the intensive care unit. PAST MEDICAL HISTORY: Includes type 2 diabetes mellitus, renal insufficiency, coronary artery diseas e, COPD, probable pulmonary hypertension, cor pulmonale. PAST SURGICAL HISTORY: Includes BPH and a history of DVT in the past. CURRENT MEDICATIONS: Include Coumadin 3 mg daily, Januvia 50 mg daily, prednisone 5 mg daily, Zaroxo leonides 2.5 mg twice daily and Lasix 40 mg twice daily. SOCIAL HISTORY: The patient has no history of tobacco or alcohol abuse. Lives with his . Indep endent with ADLs and requires some assistance with IADLs. FAMILY HISTORY: Noncontributory. REVIEW OF SYSTEMS: Essentially negative other than above. The patient denies any nausea, no vomitin g, no diarrhea. No abdominal pain. No fever, no chills, no jaundice, no rash. PHYSICAL EXAMINATION: GENERAL: The patient is a well-developed, somewhat obese male in no acute distress. VITAL SIGNS: Blood pressure 118/67, pulse 66, respiratory rate 29, patient is afebrile. HEENT: Head is normocephalic, atraumatic. Pupils equal, round and reactive to light. Extraocular m ovements intact. NECK: Supple, with no thyromegaly, no carotid bruit. LUNGS: Show a few bibasilar crackles. HEART: Regular rate and rhythm. ABDOMEN: Soft, nontender, obese, bowel sounds normoactive. EXTREMITIES: With mild cyanosis, no clubbing, no edema. NEUROLOGIC: The patient is awake and oriented x 3 without focal sensory or motor deficits. SKIN: Warm and dry. LABORATORY DATA: WBC 7.5, hemoglobin 15, hematocrit 45.2. Sodium 135, potassium 3.3, chloride 89, C O2 33, BUN 61, creatinine 1.4, glucose 198. BNP is slightly elevated at 541. Troponin is equivocal at 0.03. IMPRESSION: 1. Exacerbation of chronic obstructive pulmonary disease with bilateral pneumonia. 2. Pulmonary hypertension. 3. Congestive heart failure/cor pulmonale. 4. Type 2 diabetes mellitus. 5. Hypertension. 6. Hypercholesterolemia. 7. Coronary artery disease. 8. History of deep vein thrombosis. PLAN: The patient is admitted to the intensive care unit. We will obtain pulmonary consultation wit maurisio Gómez and cardiology consultation with Dr. Rodriguez. The patient has been empirically started o n DuoNebs as well as Rocephin 1 gram q. 24 hours and Zithromax 500 mg IV q. 24 hours. The patient ap pears volume depleted. We will hold diuretics. The patient has also been started on Solu-Medrol 40 mg IV q. 8 hours. He is medical is medically stable for transfer to the medical, surgical or telemet ry floors. David Morton JD, MD cc: [id number] TT: 01/08/2017 18:08:28 josé miguel
--- NOTE | 2017-01-08 19:23 | CON ---
DATE: 01/08/2017 REFERRING PHYSICIAN: Dr. Morton REASON FOR CONSULTATION: Cough, shortness of breath, history of sleep apnea syndrome, chronic pulmon velvet interstitial infiltrate. HISTORY OF PRESENT ILLNESS: This is a 76-year-old gentleman with past medical history significant fo r pulmonary fibrosis, obstructive sleep apnea syndrome, chronic obstructive lung disease, has coronar y artery disease, diabetes, atrial fibrillation, on anticoagulation. Comes in with cough, shortness of breath, was placed on BiPAP last night. Feels a little better since last night. Still has a coug h, shortness of breath. No chest pain, no nausea, no vomiting, no diarrhea. Trace leg swelling. PAST MEDICAL HISTORY: As per history of present illness. SOCIAL HISTORY: Stopped smoking many years ago. Denied any alcohol use. FAMILY HISTORY: No significant cardiopulmonary disease reported. ALLERGIES: None known. MEDICATIONS: He is on DuoNeb q. 4 hours, insulin coverage, potassium 40 mEq q. 4 hours, Lovenox 100 mg twice a day, Protonix 40 mg daily, Rocephin 1 gram daily, Solu-Medrol 40 mg q. 8 hours, Zithromax 500 mg daily. REVIEW OF SYSTEMS: No headache, no rhinitis. Has a cough, shortness of breath, muscular type chest pain. No nausea, no vomiting, no diarrhea. No dysuria. No leg pain or leg swelling. PHYSICAL EXAMINATION: GENERAL: Lying in the bed, mild to moderate distress secondary to cough and shortness of breath. VITAL SIGNS: He is afebrile, heart rate 69, respiratory rate is 20-30, blood pressure 118/64, pulse ox 96% on room air. HEENT: Moist mucous membrane. Crowded airway. Mallampati score is 4. NECK: Short, thick neck. LUNGS: Have basal crackles, expiratory wheezing. HEART: S1 and S2. ABDOMEN: Soft, nontender, no organomegaly. EXTREMITIES: Trace edema. NEUROLOGIC: Awake, alert, follows simple commands. LABORATORY DATA: Shows hemoglobin 15.0, hematocrit 45.2, WBC 7.5, platelet is 252. INR 1.61, PTT 37 . The blood gases shows pH 7.45, pCO2 44, O2 65. That is on nasal cannula. Sodium 135, potassium 2 .3, chloride 89, bicarbonate 33, BUN 61, creatinine 1.4, glucose 198, calcium is 9.0, magnesium 2.4, AST 31, ALT 28, alk phos is 101, albumin is 3.7. Procalcitonin 0.05. Chest x-ray done in ER shows patchy bilateral infiltrate, cardiomegaly. IMPRESSION AND PLAN: Chronic obstructive lung disease, bilateral basal interstitial infiltrate, pulm onary fibrosis, bronchiectasis, history of lobular septal thickening, hypoventilation syndrome, sleep apnea syndrome, diabetes, morbid obesity, cardiac arrhythmia. Agree with Dr. Morton. Continue IV an d inhaled bronchodilator. Will place him on BiPAP, gastric prophylaxis, anticoagulation. Follow up labs in the morning. Thank you and we will follow with you. Joel Gómez MD cc: [id number] TT: 01/08/2017 19:23:05 Confirmation # [id number] Dictation # [id number] en
--- NOTE | 2017-01-09 19:35 | PN ---
DATE: 01/09/2017 SUBJECTIVE: The patient is lying in bed in no acute distress. He denies any chest pain or shortness of breath. OBJECTIVE: VITAL SIGNS: Temperature 97.6 axillary, pulse 91, blood pressure 115/71, respiratory rate 20. LUNGS: Show a few scattered crepitations at the bases. HEART: Regular rate and rhythm. ABDOMEN: Soft, nontender, bowel sounds are normoactive. EXTREMITIES: Without cyanosis, clubbing, or edema. NEUROLOGIC: The patient is awake and oriented x 3 without focal sensory or motor deficits. SKIN: Warm and dry. IMPRESSION: 1. Exacerbation of chronic obstructive pulmonary disease with bilateral pneumonia. 2. Pulmonary hypertension. 3. Congestive heart failure/cor pulmonale. 4. Type 2 diabetes mellitus. 5. Hypertension. 6. Hypercholesterolemia. 7. Coronary artery disease. 8. History of deep vein thrombosis. PLAN: Continue IV antibiotics with Zithromax and Rocephin IV. Continue cardiology followup with Dr. Rodriguez and pulmonary followup with Dr. Gómez. Taper steroids as tolerated. Physical therapy and s ocial work for discharge planning. David Morton JD, MD cc: [id number] TT: 01/09/2017 19:34:44 Confirmation # [id number] Dictation # [id number] lai
[2017-01-09] MEDS: Albuterol-Ipratrop 3 mg / 0.5 (3 ml) UD IH SCH ×2 (20:41→23:21)
[2017-01-09] MEDS: Insulin Reg-HIGH-Coverage SC SCH (22:30)
--- NOTE | 2017-01-09 22:32 | PN ---
DATE: 01/09/2017 REFERRING PHYSICIAN: Dr. Corona. SUBJECTIVE: He is out of bed to chair. is at bedside. Still short of breath with cough. No na usea, no vomiting, no diarrhea. Does have trace leg swelling. OBJECTIVE: GENERAL: No acute distress. VITAL SIGNS: Temperature is 98, heart rate is , respiratory rate is 20, blood pressure 115/71, pulse ox 92% on nasal cannula. HEENT: Moist mucous membranes. Crowded airway. Mallampati score is 4. NECK: Supple. No JVD. LUNGS: Has bilateral crackles and wheezing. HEART: S1 and S2. ABDOMEN: Soft, nontender. No organomegaly. EXTREMITIES: There is trace edema. NEUROLOGIC: Awake, alert, follows simple command. MEDICATIONS: He is on Coumadin 5 mg given last night, DuoNeb q. 6 hours, insulin coverage, mg q. 12 hours, Protonix 40 mg daily, Rocephin 1 gram daily, Solu-Medrol 40 mg q. 8 hours, Zithromax 500 mg daily. LABORATORY DATA: Shows blood sugar is 213. MICROBIOLOGY: Blood culture, nares, saliva unremarkable. IMPRESSION AND PLAN: Chronic obstructive lung disease interstitial infiltrate, pulmonary fibro sis, bronchiectasis lobar septal thickening, hypoventilation syndrome, sleep apnea syndrome, di abetes, morbid obesity, cardiac arrhythmia. Pulmonary point of view, continue IV and inhaled broncho dilators. Encourage BiPAP use. Gastric prophylaxis. Deep vein thrombosis prophylaxis. Follow up I NR in the morning. Thank you and will follow with you. Joel Gómez MD cc: [id number] TT: 01/09/2017 22:31:56 Confirmation # [id number] Dictation # [id number] ln
[2017-01-10] MEDS: MethylPREDNISolone 40 mg Vial IVP SCH ×3 (01:57→17:07)
[2017-01-10] MEDS: Albuterol-Ipratrop 3 mg / 0.5 (3 ml) UD IH SCH ×5 (04:18→20:00)
[2017-01-10 05:01] LABS: ALB/GLOB RATIO 1.1 (1.1-1.8); ALKALINE PHOSPHATASE 130 U/L (38-133); ALT/SGPT 28 U/L (7-56); AST/SGOT 87 U/L (15-59); BILIRUBIN,TOTAL 1.4 mg/dL (0.2-1.3); BLOOD UREA NITROGEN 48 mg/dL (7-21); CALCIUM 9.9 mg/dL (8.4-10.5); CARBON DIOXIDE 28 mmol/L (21-33); CHLORIDE 96 mmol/L (98-107); GFR AFRICAN-AMERICAN > 60; GLUCOSE,RANDOM 215 mg/dL (70-110); POTASSIUM 4.4 mmol/L (3.6-5.0); SODIUM 136 mmol/L (132-148); TOTAL PROTEIN 7.7 g/dL (5.8-8.3)
--- NOTE | 2017-01-10 05:17 | CP.PCM.CON ---
<AniyahEmma - Last Filed: 01/10/17 05:00> History of Present Illness - History of Present Illness History of Present Illness: General Surgery Dr. Hill HPI: 76 y/o Mauritanian-speaking M w/ PMHx of CAD, HTN, DEJAN, DM, A-fib on coumadin, and CHF who presented to the ED on 01/07/17 w/ c/o SOB x2wks and productive cough w/white sputum. Pt was found to have metabolic alkalosis 2/2 lasix dose increase. Pt was admitted to ICU and transferred to remote tele on 01/08/17. Pt is currently receiving both Lovenox and coumadin. Surgery was for continued bleeding of LUE skin tears [id number] despite pressure dressings. Pt has no numbness, tingling, pain in arm. PMHx: see above, CKD, COPD Meds: reviewed in chart NKDA PSHx: pacemaker placement, cardiac cath SHx: former smoker, denies EtOH, drugs FHx: noncontributory Review of Systems - Review of Systems Systems not reviewed;Unavailable: Language Barrier, Other (sleeping; on BiPap) Past Patient History - Infectious Disease Hx of Infectious Diseases: None - Tetanus Immunizations Tetanus Immunization: Unknown - Past Social History Smoking Status: Former Smoker - CARDIAC Hx Cardiac Disorders: Yes Hx Atrial Fibrillation: Yes Hx Congestive Heart Failure: Yes Hx Hypertension: Yes Hx Pacemaker: Yes - PULMONARY Hx Chronic Obstructive Pulmonary Disease (COPD): Yes Hx Pneumonia: Yes Other/Comment: O2 dependent - NEUROLOGICAL Hx Neurological Disorder: No - HEENT Hx HEENT Problems: (WEARS RX GLASSES) - RENAL Hx Renal Failure: Yes (chronic) - ENDOCRINE/METABOLIC Hx Diabetes Mellitus Type 2: Yes - HEMATOLOGICAL/ONCOLOGICAL Hx Blood Disorders: No - INTEGUMENTARY Hx Dermatological Problems: No - MUSCULOSKELETAL/RHEUMATOLOGICAL Hx Musculoskeletal Disorders: Yes - GASTROINTESTINAL Hx Gastrointestinal Disorders: No - GENITOURINARY/GYNECOLOGICAL Hx Genitourinary Disorders: Yes Hx Hematuria: Yes - PSYCHIATRIC Hx Psychophysiologic Disorder: No (H/O OF CIGARETTE SMOKING 2 CIG/DAY DURING HS ONLY) Hx Substance Use: No - SURGICAL HISTORY Hx Cardiac Catheterization: Yes - ANESTHESIA Hx Anesthesia Reactions: No Hx Malignant Hyperthermia: No Meds Allergies/Adverse Reactions: Allergies Allergy/AdvReac Type Severity Reaction Status Date / Time No Known Allergies Allergy Verified 01/07/17 13:33 - Medications Medications: Current Medications Albuterol/Ipratropium (Duoneb 3 Mg/0.5 Mg (3 Ml) Ud) 3 ml IH Q4H [facility] Last Admin: 01/10/17 04:18 Dose: 3 ml Enoxaparin Sodium (Lovenox) 100 mg SC Q12H [facility] PRN Reason: Protocol Last Admin: 01/08/17 18:01 Dose: 100 mg Ceftriaxone Sodium (Rocephin 1 Gram Ivpb) 1 gm in 100 mls @ 100 mls/hr IVPB DAILY [facility] PRN Reason: Protocol Last Admin: 01/08/17 10:48 Dose: 100 mls/hr Azithromycin (Zithromax 500mg In Ns) 500 mg in 250 mls @ 167 mls/hr IVPB DAILY [facility] PRN Reason: Protocol Last Admin: 01/08/17 10:49 Dose: 167 mls/hr Insulin Human Regular (Humulin R High) 0 units SC ACHS [facility] PRN Reason: Protocol Last Admin: 01/09/17 22:30 Dose: Not Given Methylprednisolone (Solu-Medrol) 40 mg IVP Q8H [facility] Last Admin: 01/10/17 01:57 Dose: 40 mg Pantoprazole Sodium (Protonix Inj) 40 mg IVP DAILY [facility] Last Admin: 01/08/17 10:47 Dose: 40 mg Warfarin Sodium (Coumadin) 5 mg PO 1800 [facility] PRN Reason: Protocol Last Admin: 01/08/17 18:02 Dose: 5 mg Physical Exam - Constitutional Appears: Non-toxic, No Acute Distress - Head Exam Head Exam: NORMAL INSPECTION - Eye Exam Eye Exam: Normal appearance - ENT Exam ENT Exam: Mucous Membranes Moist Additional comments: on BiPAP - Respiratory Exam Respiratory Exam: NORMAL BREATHING PATTERN. absent: Accessory Muscle Use, Respiratory Distress - Cardiovascular Exam Cardiovascular Exam: Tachycardia, REGULAR RHYTHM - GI/Abdominal Exam GI & Abdominal Exam: Soft. absent: Distended (obese) - Extremities Exam Extremities exam: Positive for: pedal edema Additional comments: B/L UE multiple ecchymosis in various stages of healing. crepe-like skin LUE pressure dressing in place. minimal blood staining present - Neurological Exam Additional comments: sleeping - Skin Skin Exam: Dry, Warm Results - Vital Signs Recent Vital Signs: Last Vital Signs Temp 97.6 F 01/09/17 16:00 Pulse 89 01/09/17 23:35 Resp 20 01/09/17 16:00 BP 117/76 01/09/17 16:00 Pulse Ox 93 L 01/09/17 16:00 - Labs Result Diagrams: 01/08/17 06:10 01/08/17 16:50 Labs: Laboratory Results - last 24 hr 01/09/17 01/09/17 01/09/17 07:11 11:18 16:03 POC Glucose (mg/dL) 232 H 293 H 229 H 01/09/17 21:06 POC Glucose (mg/dL) 213 H Assessment & Plan - Assessment and Plan (Free Text) Assessment: 76 y/o M coagulopathic from both Warfarin and Lovenox - cont pressure dressings prn - apply surgicel to affected area w/ non-stick dressing - refrain from using tape - consider decreasing &/or discontinuing either warfarin or Lvx - continue to monitor Coags - Surgical team to evaluate during AM rounds Will discuss w/ Dr. Sergio Dill DO PGY1 <Andrés Hill - Last Filed: 01/16/17 06:16> Results - Vital Signs Recent Vital Signs: Last Vital Signs Temp 97.8 F 01/15/17 06:00 Pulse 75 01/15/17 10:00 Resp 24 01/15/17 06:00 BP 146/72 01/15/17 09:53 Pulse Ox 99 01/15/17 06:00 - Labs Result Diagrams: 01/15/17 08:45 01/15/17 08:45 Labs: Laboratory Results - last 24 hr 01/15/17 01/15/17 01/15/17 08:03 08:45 08:45 WBC 12.5 H RBC 4.58 Hgb 13.9 L Hct 42.8 MCV 93.4 MCH 30.3 MCHC 32.5 RDW 18.0 H Plt Count 184 MPV 8.8 Sodium 134 Potassium 4.1 Chloride 95 Carbon Dioxide 34 H Anion Gap 9 L BUN 36 H Creatinine 1.1 Est GFR ( Amer) > 60 Est GFR (Non-Af Amer) > 60 POC Glucose (mg/dL) 110 Random Glucose 105 Calcium 9.5 Total Bilirubin 1.8 H AST 31 ALT 47 Alkaline Phosphatase 74 Total Protein 6.1 Albumin 3.5 Globulin 2.6 Albumin/Globulin Ratio 1.4 01/15/17 11:51 WBC RBC Hgb Hct MCV MCH MCHC RDW Plt Count MPV Sodium Potassium Chloride Carbon Dioxide Anion Gap BUN Creatinine Est GFR ( Amer) Est GFR (Non-Af Amer) POC Glucose (mg/dL) 145 H Random Glucose Calcium Total Bilirubin AST ALT Alkaline Phosphatase Total Protein Albumin Globulin Albumin/Globulin Ratio Assessment & Plan - Assessment and Plan (Free Text) Assessment: Dx Localized skin avulsion bilateral upper extremities w full anticoagulation Rx Topical Exuderm-COBAN not tape no further recommendations now This consult done under my direct supervision Evelina Hill MD FACS
[2017-01-10 06:59] LABS: ADD MANUAL DIFF? NO
[2017-01-10 07:08] LABS: GRAN # 10.35 (1.4-6.5); GRAN % 92.1 % (50.0-68.0); HEMATOCRIT 40.5 % (42.0-52.0); LYMPH # 0.5 (1.2-3.4); LYMPH % 4.6 % (22.0-35.0); MEAN CELL VOLUME 91.8 fL (80.0-105.0); MEAN CORPUSCULAR HEMOGLOBIN 30.8 pg (25.0-35.0); MEAN CORPUSCULAR HGB CONC 33.6 g/dl (31.0-37.0); MEAN PLATELET VOLUME 8.7 fl (7.0-11.0); MONO # 0.4 (0.1-0.6); MONO % 3.3 % (1.0-6.0); PLATELET COUNT 216 10^3/uL (120.0-450.0); RED CELL DISTRIBUTION WIDTH 18.1 % (11.5-14.5); WHITE BLOOD COUNT 11.2 10^3/ul (4.5-11.0)
[2017-01-10 07:17] LABS: INR 2.28 (0.93-1.08)
[2017-01-10] MEDS: Enoxaparin 100 mg Syringe SC SCH (07:35)
[2017-01-10 07:41] LABS: ALB/GLOB RATIO 1.1 (1.1-1.8); ALKALINE PHOSPHATASE 74 U/L (38-133); ALT/SGPT 31 U/L (7-56); AST/SGOT 31 U/L (15-59); BILIRUBIN,TOTAL 1.1 mg/dL (0.2-1.3); BLOOD UREA NITROGEN 43 mg/dL (7-21); CALCIUM 9.3 mg/dL (8.4-10.5); CARBON DIOXIDE 29 mmol/L (21-33); CHLORIDE 96 mmol/L (98-107); GFR AFRICAN-AMERICAN > 60; GLUCOSE,RANDOM 234 mg/dL (70-110); POTASSIUM 4.3 mmol/L (3.6-5.0); SODIUM 133 mmol/L (132-148); TOTAL PROTEIN 6.4 g/dL (5.8-8.3)
[2017-01-10] MEDS: Insulin Reg-HIGH-Coverage SC SCH ×3 (08:12→16:54)
[2017-01-10] MEDS: cefTRIAXone 1 gm 1 GM/100 ML BAG IVPB SCH (09:56)
[2017-01-10] MEDS: Azithromycin 500MG/NS 250ml 500 MG/250 ML BAG IVPB SCH (09:56)
--- NOTE | 2017-01-10 10:46 | CP.PCM.PCO ---
Physician Communication Note - Physician Communication Note Physician Communication Note: [place] [facility]/Rx Exuderm-Do not remove!
--- NOTE | 2017-01-10 11:52 | CON ---
DATE: 01/10/2017 INDICATIONS: Shortness of breath, severe COPD. This is a 76-year-old man known to me, admitted on the with increasing shortness of breath, cough and vague chest discomfort, found to have bilateral infiltrates, possibly pneumonia and exacerbation of COPD, which is severe. He was initially in the intensive care unit, has been seen by Dr. Gómez, is getting pulmonary treatments and antibiotics and is slowly improving. He still has some dyspnea on exertion and cough. There is no chest pain, orthopnea, PND , syncope, palpitations, fever, chills, hemoptysis, abdominal pain, nausea, vomiting, diarrhea, constipation, melena. PAST MEDICAL HISTORY: Notable for COPD, sleep apnea, pulmonary fibrosis, paroxysmal atrial fibrillation, DVT, hypertension, hyperlipidemia, BPH, obesity , sleep apnea, cerebrovascular disease. He had mild coronary artery disease with normal left ventricular function on a cardiac catheterization in the past. He had a hospitalization for severe respiratory insufficiency in the past. MEDICATIONS: At the time of admission included Coumadin, potassium, spironolactone, Lasix, Januvia, prednisone, metoprolol, MiraLax, lactulose p.r.n., Tylenol p.r.n. CURRENT MEDICATIONS: Include warfarin, albuterol, insulin, Lovenox, Protonix, Rocephin, Solu-Medrol, azithromycin. ALLERGIES: There are no medication allergies. He is a former smoker. He does not drink alcohol. He lives at home with his . FAMILY HISTORY: Noncontributory. REVIEW OF SYSTEMS: A 10-point is otherwise unremarkable except as noted above. PHYSICAL EXAMINATION: GENERAL: He is a well-developed male, lying in bed, on 3R, in no acute distress. VITAL SIGNS: Notable for sinus rhythm, 86 beats per minute, afebrile, blood pressure 117/76, respirations 20, O2 sat 93% on nasal cannula. HEENT: Reveals no neck vein distention, thyromegaly, carotid bruit. Mucous membranes moist. Conjunctivae pink. NECK: Supple. CHEST: Lung valenzuela reveal scattered rhonchi and a few crackles at the bases. HEART: Revealed normal first and second heart sounds. There is a soft systolic murmur along the left sternal border. ABDOMEN: Benign. Bowel sounds are present. No mass, organomegaly, tenderness , rebound, guarding, CVA tenderness or palpable abdominal aortic aneurysm. EXTREMITIES: Revealed no cyanosis or clubbing. There is mild ankle edema. NEUROLOGIC: He was awake, alert and oriented. PSYCHIATRIC: Normal as to mood and affect. SKIN: Warm and dry. No rash or cellulitis. LABORATORY AND IMAGING: A chest x-ray revealed a portable study. There are patchy bilateral lower lobe infiltrates noted. EKG demonstrates regular sinus rhythm, poor R-wave progression, leftward axis, nonspecific ST-wave changes. White count 11,200, hemoglobin 13.6, hematocrit 40.5, platelet count normal. PT 24.6, INR 2.28 today. PTT on the 16 36.5. Blood gases noted. Electrolytes, BUN, creatinine unremarkable. Blood sugars in the 200 range. LFTs unremarkable. Troponin 0.03. CK 44. Procalcitonin 0.05. IMPRESSION: The patient is a 76-year-old man with severe chronic obstructive pulmonary disease, pulmonary fibrosis, pneumonia. Admitted with exacerbation of chronic obstructive pulmonary disease and pneumonia with a history of diabetes, paroxysmal atrial fibrillation, hypertension, hyperlipidemia, sleep apnea. At this time, I agree with current plans. His pulmonary treatment is under the care of Dr. Gómez. I would stop Lovenox at this time. He is therapeutic with Coumadin. I would resume his metoprolol, daily Lasix. I would continue Coumadin and reduce the dose to 3 mg daily. We will monitor labs, INRs, I's and O's, sats. He is getting a BiPAP mask at night. He can be out of bed to a chair. I will review his old records. I will follow along with you as needed. Stan Rodriguez MD cc: [id number] TT: 01/10/2017 11:31:13 Confirmation # [id number] Dictation # [id number] en MTDD
--- NOTE | 2017-01-10 14:09 | PN ---
DATE: 01/10/2017 SUBJECTIVE: The patient is lying in bed in no acute distress. He denies chest pain or shortness of breath. OBJECTIVE: VITAL SIGNS: Blood pressure 142/87, temperature 97.8, pulse 87, respiratory rate 22. LUNGS: Clear. HEART: Regular rate and rhythm. ABDOMEN: Soft, nontender, bowel sounds are normoactive. EXTREMITIES: Without cyanosis, clubbing, or edema. NEUROLOGIC: The patient is awake and oriented x 3 without focal sensory or motor deficits. SKIN: Warm and dry. There is a skin tear of the right upper arm, which is oozing some blood. LABORATORY DATA: WBC is 11.2, hemoglobin 13.6, hematocrit 40.5. Sodium 133, potassium 4.3, chloride 96, CO2 29, BUN 43, creatinine 1.2, glucose 234. IMPRESSION: 1. Exacerbation of chronic obstructive pulmonary disease with bilateral pneumonia. 2. Pulmonary hypertension. 3. Congestive heart failure/cor pulmonale. 4. Paroxysmal atrial fibrillation. 5. Type 2 diabetes mellitus. 6. Hypertension. 7. Hypercholesterolemia. 8. Coronary artery disease. 9. History of deep venous thrombosis. PLAN: Continue IV antibiotics with Zithromax and Rocephin IV. Continue cardiology followup with Dr. Rodriguez and pulmonary followup with Dr. Gómez. Taper steroids as tolerated. Physical therapy and s ocial work for discharge planning. David Morton JD, MD cc: [id number] TT: 01/10/2017 14:08:58 Confirmation # [id number] Dictation # [id number] lai
--- NOTE | 2017-01-10 20:35 | PN ---
DATE: 01/10/2017 REFERRING PHYSICIAN: Dr. Morton. SUBJECTIVE: The patient is out of bed to chair. Tolerated BiPAP well. Feels a little better than y day, still having cough and shortness of breath. No nausea, no vomiting, no diarrhea, not much leg swelling. OBJECTIVE: GENERAL: No acute distress. VITAL SIGNS: Temperature is 98, heart rate is 100, respiratory rate is 20, blood pressure 142/87, pu lse ox 97% on 2 liters nasal cannula. HEENT: Moist mucous membranes. Crowded airway. Mallampati score is 4. NECK: Supple. No JVD. LUNGS: Have a few crackles and wheezing. HEART: S1, S2. ABDOMEN: Soft, nontender. No organomegaly. EXTREMITIES: There is not much edema. NEUROLOGIC: Awake, alert, follows simple command. MEDICATIONS: He is on Coumadin 3 mg will be given tonight, DuoNeb q. 4 hours, insulin coverage, Lasi x 40 mg daily, Protonix 40 mg daily, Rocephin 1 gram daily, Solu-Medrol 40 mg q. 8 hours, Zithromax 5 00 mg daily. LABORATORY DATA: Shows hemoglobin 13.6, hematocrit 42.5, WBC 11.2, platelet count is 216. INR is 2. 28. Sodium 133, potassium 4.3, chloride 96, bicarbonate 29, BUN 43, creatinine 1.2, glucose 234, uri cium 9.3, AST 31, ALT 31, alkaline phosphatase is 74, albumin is 3.3. IMPRESSION AND PLAN: Chronic obstructive lung disease with interstitial infiltrate, pulmonary fibros is, bronchiectasis, lobar septal thickening, hypoventilation syndrome, sleep apnea syndrome, diabetes , morbid obesity, cardiac arrhythmia, has a left arm subcutaneous bleed with sloughing of skin requir ing dressing. Seen by surgery. Pulmonary point of view will continue steroids. Continue bronchodil ator, diuretics. Encourage BiPAP use at night. Follow up labs in the morning. Will receive Coumadi n 3 mg today. Thank you and will follow with you. Joel Gómez MD cc: [phone] TT: 01/10/2017 20:34:07 Confirmation # [id number] Dictation # [id number] martha
[2017-01-11] MEDS: Albuterol-Ipratrop 3 mg / 0.5 (3 ml) UD IH SCH ×8 (00:09→23:31)
[2017-01-11] MEDS: MethylPREDNISolone 40 mg Vial IVP SCH ×3 (01:00→17:25)
[2017-01-11] MEDS: Insulin Reg-HIGH-Coverage SC SCH ×4 (07:44→23:38)
[2017-01-11] MEDS: cefTRIAXone 1 gm 1 GM/100 ML BAG IVPB SCH (10:50)
[2017-01-11] MEDS: Azithromycin 500MG/NS 250ml 500 MG/250 ML BAG IVPB SCH (10:51)
[2017-01-11 12:10] LABS: INR 2.45 (0.93-1.08)
--- NOTE | 2017-01-11 14:13 | PN ---
DATE: 01/11/2017 SUBJECTIVE: The patient is out of bed in a chair in no acute distress. He denies chest pain or shor tness of breath. He complains of constipation. OBJECTIVE: VITAL SIGNS: Blood pressure 129/87, temperature 98.6, pulse 91, respiratory rate 20. LUNGS: Clear. HEART: Regular rate and rhythm. ABDOMEN: Soft, nontender, bowel sounds are normoactive. EXTREMITIES: Without cyanosis, clubbing, or edema. NEUROLOGIC: The patient is awake and oriented x 3 without focal sensory or motor deficits. SKIN: Warm and dry. Dressing of the skin tear in the right upper arm is intact. IMPRESSION: 1. Exacerbation of chronic obstructive pulmonary disease with bilateral pneumonia. 2. Pulmonary hypertension. 3. Cor pulmonale. 4. Paroxysmal atrial fibrillation. 5. Type 2 diabetes mellitus. 6. Hypertension. 7. Hypercholesterolemia. 8. Coronary artery disease. 9. History of deep venous thrombosis. PLAN: Continue IV antibiotics with Zithromax and Rocephin IV. Continue cardiology followup with Dr. Rodriguez and pulmonary followup with Dr. Gómez. Taper steroids as tolerated. Physical therapy and s ocial work for discharge planning. David Morton JD, MD cc: 353 TT: 01/11/2017 14:12:58 Confirmation # [id number] Dictation # [id number] martha
[2017-01-11] MEDS: POLYETHYLENE GLYCOL 3350 17 GM/Dose PACKET PO SCH (15:24)
--- NOTE | 2017-01-11 22:09 | PN ---
DATE: 01/11/2017 REFERRING PHYSICIAN: Dr. Morton. SUBJECTIVE: The patient is sitting in a chair. Family is at bedside. Night was unremarkable tolera lalo BiPAP well. Still having cough and shortness of breath, but improved. No nausea, no vomiting, d iarrhea. No leg pain or leg swelling. OBJECTIVE: GENERAL: No acute distress. VITAL SIGNS: Temperature is 98, heart rate is 101, respiratory rate is 20, blood pressure 153/89 and pulse ox 94% on nasal cannula. HEENT: Moist mucous membrane. Crowded airway. NECK: Supple. No JVD. LUNGS: Has a prolonged expiratory phase with rhonchi at the bases with crackles. HEART: S1, S2. ABDOMEN: Soft, nontender. No organomegaly. EXTREMITIES: No edema. NEUROLOGIC: Awake, alert, follows simple command. MEDICATIONS: He is on Colace 100 mg twice a day, Coumadin 3 mg will be given tonight, DuoNeb q. 4 ho urs, insulin coverage, Lasix 40 mg daily, MiraLax 17 grams p.o. daily, Protonix 40 mg daily, Rocephin 1 gram daily, Solu-Medrol 40 mg IV q. 8 hours, Zithromax 500 mg daily. LABORATORY DATA: Shows INR 2.45. MICROBIOLOGY: Blood culture, urine culture, nares culture there is no growth. IMPRESSION AND PLAN: Chronic obstructive lung disease with interstitial infiltrate, pulmonary fibros is, bronchiectasis, lobar septal thickness, hypoventilation syndrome, sleep apnea syndrome, diabetes, moderate obesity, cardiac arrhythmia, left arm subcutaneous bleed requiring a dressing. Pulmonary p oint of view, slowly improving, clinically better. Will continue IV and inhaled bronchodilator. Con tinue anticoagulation. Gastric prophylaxis. Follow up INR in the lab in the morning. Thank you an d will follow with you. Joel Gómez MD cc: 336 TT: 01/11/2017 22:08:09 Confirmation # [id number] Dictation # [id number] martha
[2017-01-12] MEDS: Albuterol-Ipratrop 3 mg / 0.5 (3 ml) UD IH SCH ×6 (04:36→23:08)
[2017-01-12] MEDS: Insulin Reg-HIGH-Coverage SC SCH ×4 (07:59→22:00)
[2017-01-12 08:29] LABS: INR 2.2 (0.93-1.08)
[2017-01-12 08:31] LABS: BLOOD UREA NITROGEN 42 mg/dL (7-21); CALCIUM 9.2 mg/dL (8.4-10.5); CARBON DIOXIDE 33 mmol/L (21-33); CHLORIDE 95 mmol/L (98-107); GFR AFRICAN-AMERICAN > 60; GLUCOSE,RANDOM 137 mg/dL (70-110); POTASSIUM 3.7 mmol/L (3.6-5.0); SODIUM 133 mmol/L (132-148)
[2017-01-12] MEDS: MethylPREDNISolone 40 mg Vial IVP SCH ×2 (10:08→17:57)
[2017-01-12] MEDS: POLYETHYLENE GLYCOL 3350 17 GM/Dose PACKET PO SCH (10:08)
[2017-01-12] MEDS: Pantoprazole 40 mg EC Tab PO SCH (10:09)
[2017-01-12] MEDS: cefTRIAXone 1 gm 1 GM/100 ML BAG IVPB SCH (10:09)
[2017-01-12 12:09] LABS: ADD MANUAL DIFF? NO
[2017-01-12 12:11] LABS: EOS # 0.1 (0.0-0.7); EOS % 0.5 % (1.5-5.0); GRAN % 69.8 % (50.0-68.0); HEMATOCRIT 39.6 % (42.0-52.0); LYMPH # 2.6 (1.2-3.4); LYMPH % 22.3 % (22.0-35.0); MEAN CELL VOLUME 91.5 fL (80.0-105.0); MEAN CORPUSCULAR HEMOGLOBIN 30.7 pg (25.0-35.0); MEAN CORPUSCULAR HGB CONC 33.6 g/dl (31.0-37.0); MEAN PLATELET VOLUME 9.6 fl (7.0-11.0); MONO # 0.9 (0.1-0.6); MONO % 7.4 % (1.0-6.0); PLATELET COUNT 224 10^3/uL (120.0-450.0); RED CELL DISTRIBUTION WIDTH 18.1 % (11.5-14.5); WHITE BLOOD COUNT 11.5 10^3/ul (4.5-11.0)
--- NOTE | 2017-01-12 13:14 | PN ---
DATE: 01/12/2017 SUBJECTIVE: The patient is out of bed in a chair in no acute distress. He denies any chest pain or shortness of breath. There is no cough. He complains of constipation with no bowel movement in the past 4-5 days. OBJECTIVE: VITAL SIGNS: Blood pressure 123/70, temperature 98, pulse 88, respiratory rate 20. LUNGS: Clear. HEART: Regular rate and rhythm. ABDOMEN: Soft, nontender, bowel sounds are normoactive. EXTREMITIES: Without cyanosis, clubbing, or edema. NEUROLOGIC: The patient is awake and oriented x 3 without focal sensory or motor deficits. SKIN: Warm and dry. LABORATORY DATA: WBC is 11.5, hemoglobin 13.3, hematocrit 39.6. Sodium 133, potassium 3.7, chloride 95, CO2 33, BUN 42, creatinine 1.0, glucose 137. IMPRESSION: 1. Exacerbation of chronic obstructive pulmonary disease with bilateral pneumonia. 2. Pulmonary hypertension. 3. Cor pulmonale. 4. Paroxysmal atrial fibrillation. 5. Type 2 diabetes mellitus. 6. Hypertension. 7. Hypercholesterolemia. 8. Coronary artery disease. PLAN: Continue IV antibiotics with Zithromax and Rocephin IV. Continue cardiology followup with Dr. Rodriguez and pulmonary followup with Dr. Gómez. Taper steroids as tolerated. Physical therapy and s ocial work for discharge planning. David Morton JD, MD cc: 353 TT: 01/12/2017 13:12:58 Confirmation # [id number] Dictation # [id number] mt
[2017-01-12] MEDS: Azithromycin 500MG/NS 250ml 500 MG/250 ML BAG IVPB SCH (14:55)
--- NOTE | 2017-01-13 00:01 | PN ---
DATE: 01/12/2017 PULMONARY PROGRESS NOTE REFERRING PHYSICIAN: Dr. Morton. SUBJECTIVE: He is out of bed to chair. is at bedside. No headache, no rhinitis. Cough and sh ortness of breath is better. No nausea, no vomiting, no diarrhea, no leg pain or leg swelling. OBJECTIVE: GENERAL: No acute distress. VITAL SIGNS: Temp is 98, heart rate is 102, respiratory rate is 20, blood pressure 111/65, pulse ox 99% on room air. HEENT: Moist mucous membranes. Crowded airway. Mallampati score is 4. NECK: Supple. No JVD. LUNGS: Have expiratory wheezing with scattered crackles. HEART: S1, S2. ABDOMEN: Soft, nontender. No organomegaly. EXTREMITIES: There is no edema. NEUROLOGIC: Awake, alert, follows simple command. MEDICATIONS: He is on Colace 100 mg twice a day, Coumadin 3 mg daily, DuoNeb q. 4 hours, insulin cov erage, Lasix 40 mg daily, MiraLax 17 grams p.o. daily, Protonix 40 mg daily, Rocephin 1 g daily, Solu -Medrol 40 mg q. 8 hours, Zithromax 500 mg daily. LABORATORY DATA: Shows hemoglobin 13.3, hematocrit 39.6, WBC 11.5, platelets 224. INR 2.20. Sodium 136, potassium 3.7, chloride 95, bicarbonate 33, BUN 42, creatinine 1.0, glucose , calcium is 9 .2. Procalcitonin less than 0.5. MICROBIOLOGY: Blood culture, urine culture has been negative. IMPRESSION AND PLAN: Chronic obstructive lung disease, interstitial infiltrate, pulmonary fibrosis, bronchiectasis, lobular septal thickening, hypoventilation syndrome, sleep apnea syndrome, diabetes, morbid obesity, cardiac arrhythmia, left arm subcutaneous bleed requiring dressing. Pulmonary point of view, slowly improving. We will decrease Solu-Medrol to 40 q. 12 hours. Get physical therapy to ambulate the patient. Gastric prophylaxis. DVT prophylaxis. INR in the morning. Thank you and we will follow. Joel Gómez MD cc: 336 TT: 01/13/2017 00:01:26 Confirmation # [id number] Dictation # [id number] mn
[2017-01-13] MEDS: Albuterol-Ipratrop 3 mg / 0.5 (3 ml) UD IH SCH ×5 (03:43→20:06)
[2017-01-13 07:43] LABS: INR 1.71 (0.93-1.08)
[2017-01-13] MEDS: Insulin Reg-HIGH-Coverage SC SCH ×5 (08:50→21:53)
[2017-01-13] MEDS: Azithromycin 500MG/NS 250ml 500 MG/250 ML BAG IVPB SCH (09:33)
[2017-01-13] MEDS: cefTRIAXone 1 gm 1 GM/100 ML BAG IVPB SCH (09:34)
[2017-01-13] MEDS: Pantoprazole 40 mg EC Tab PO SCH (09:34)
[2017-01-13] MEDS: POLYETHYLENE GLYCOL 3350 17 GM/Dose PACKET PO SCH (09:34)
[2017-01-13] MEDS ORDERED: MethylPREDNISolone 40 mg Vial IVP SCH (10:00)
--- NOTE | 2017-01-13 12:08 | PN ---
DATE: 01/13/2017 SUBJECTIVE: The patient is lying in bed in no acute distress. He denies chest pain or shortness of breath. There is no cough. OBJECTIVE: VITAL SIGNS: Blood pressure 116/78, temperature 98.3, pulse 91, respiratory rate 20. LUNGS: Clear. HEART: Regular rate and rhythm. ABDOMEN: Soft, nontender, bowel sounds are normoactive. EXTREMITIES: Without cyanosis, clubbing, or edema. NEUROLOGIC: The patient is awake and oriented x 3 without focal sensory or motor deficits. SKIN: Warm and dry. IMPRESSION: 1. Exacerbation of chronic obstructive pulmonary disease with bilateral pneumonia. 2. Pulmonary hypertension. 3. Cor pulmonale. 4. Paroxysmal atrial fibrillation. 5. Type 2 diabetes mellitus. 6. Hypertension. 7. Hypercholesterolemia. 8. Coronary artery disease. PLAN: Continue IV antibiotics with Zithromax and Rocephin IV. Continue cardiology followup with Dr. Rodriguez and pulmonary followup with Dr. Gómez. Taper steroids as tolerated. Will check labs in the a.m. Repeat chest x-ray. Social work for discharge planning. David Morton JD, MD cc: 353 TT: 01/13/2017 11:53:54 Confirmation # [id number] Dictation # [id number] mn
--- NOTE | 2017-01-13 12:49 | RAD ---
HISTORY: pneumonia COMPARISON: 01/07/2017 TECHNIQUE: Chest PA and lateral FINDINGS: LUNGS: Bibasilar patchy alveolar infiltrates which could represent CHF or pneumonia PLEURA: No significant pleural effusion identified. No pneumothorax apparent. CARDIOVASCULAR: Moderate cardiomegaly OSSEOUS STRUCTURES: No significant abnormalities. VISUALIZED UPPER ABDOMEN: Normal. OTHER FINDINGS: None. IMPRESSION: Moderate cardiomegaly. Patchy alveolar infiltrates in the lower lobes
[2017-01-13] MEDS: MethylPREDNISolone 40 mg Vial IVP SCH (21:47)
--- NOTE | 2017-01-13 22:17 | PN ---
DATE: 01/13/2017 PULMONARY PROGRESS NOTE REFERRING PHYSICIAN: Dr. Morton. SUBJECTIVE: The patient is out of bed to chair. is at bedside. [employer] worker [facility] with helped me to interpret conversing with the patient. The patient overall feels better. D ecreased cough, decreased shortness of breath, can walk a few steps, but still short of breath by marylu lechuga. No significant sputum production, no nausea, no vomiting, no diarrhea. No leg pain or leg swe lling. OBJECTIVE: GENERAL: No acute distress. VITAL SIGNS: Temperature is 98, heart rate is 93, respiratory rate is 20, blood pressure 128/83, pul se ox 95% on nasal cannula. HEENT: Moist mucous membranes. Crowded airway. Mallampati score is 4. NECK: Supple. No JVD. LUNGS: Have a few crackles, rhonchi and wheezing. HEART: S1 and S2. ABDOMEN: Soft, nontender. No organomegaly. EXTREMITIES: There is no edema. NEUROLOGIC: Awake, alert, follows simple commands. MEDICATIONS: He is on Colace 100 mg twice a day, Coumadin 3 mg will be given today, DuoNeb q. 4 hour s, insulin coverage, Lasix 40 mg daily, MiraLax 17 grams daily, Protonix 40 mg daily, Rocephin 1 gram daily, Solu-Medrol 40 mg q. 12 hours, Zithromax 500 mg daily. LABORATORY DATA: Reviewed. INR today is 1.71. Blood sugar 250. Microbiology: Blood culture, urin e culture, nares culture unremarkable. Chest x-ray done today shows moderate cardiomegaly, patchy al veolar infiltrates in the lower lobes. IMPRESSION AND PLAN: Chronic obstructive lung disease, interstitial infiltrate, pulmonary fibrosis, bronchiectasis, lobar septal thickening, hypoventilation syndrome, sleep apnea syndrome, diabetes, mo rbid obesity, cardiac arrhythmia, improving subcutaneous bleeding. I spoke to the patient's and the patient in detail. All the questions were answered. We will decrease Solu-Medrol to 20 q. 12 h ours. Continue diuretics and antibiotics. Gastric and deep venous thrombosis prophylaxis. Follow u p electrolytes in the morning. Thank you and will follow with you. Joel Gómez MD cc: [id number] TT: 01/13/2017 22:15:55 Confirmation # [id number] Dictation # [id number] mn
[2017-01-14] MEDS: Albuterol-Ipratrop 3 mg / 0.5 (3 ml) UD IH SCH ×7 (01:10→23:50)
[2017-01-14 07:18] LABS: ADD MANUAL DIFF? NO
[2017-01-14 07:24] LABS: BASO # 0.01 K/mm3 (0.0-2.0); BASO % 0.1 % (0.0-3.0); GRAN # 8.52 (1.4-6.5); GRAN % 78.2 % (50.0-68.0); HEMATOCRIT 40.3 % (42.0-52.0); LYMPH # 1.5 (1.2-3.4); LYMPH % 13.9 % (22.0-35.0); MEAN CELL VOLUME 91.8 fL (80.0-105.0); MEAN CORPUSCULAR HEMOGLOBIN 29.8 pg (25.0-35.0); MEAN CORPUSCULAR HGB CONC 32.5 g/dl (31.0-37.0); MEAN PLATELET VOLUME 8.9 fl (7.0-11.0); MONO # 0.9 (0.1-0.6); MONO % 7.8 % (1.0-6.0); PLATELET COUNT 209 10^3/uL (120.0-450.0); RED CELL DISTRIBUTION WIDTH 17.6 % (11.5-14.5); WHITE BLOOD COUNT 10.9 10^3/ul (4.5-11.0)
[2017-01-14 07:34] LABS: ALB/GLOB RATIO 1.4 (1.1-1.8); ALKALINE PHOSPHATASE 66 U/L (38-133); ALT/SGPT 44 U/L (7-56); AST/SGOT 32 U/L (15-59); BILIRUBIN,TOTAL 1.1 mg/dL (0.2-1.3); BLOOD UREA NITROGEN 39 mg/dL (7-21); CALCIUM 9.2 mg/dL (8.4-10.5); CARBON DIOXIDE 31 mmol/L (21-33); CHLORIDE 96 mmol/L (95-110); GFR AFRICAN-AMERICAN > 60; GLUCOSE,RANDOM 175 mg/dL (70-110); POTASSIUM 4.3 mmol/L (3.6-5.0); SODIUM 133 mmol/L (132-148); TOTAL PROTEIN 5.9 g/dL (5.8-8.3)
[2017-01-14] MEDS: Insulin Reg-HIGH-Coverage SC SCH ×4 (08:32→22:52)
[2017-01-14] MEDS: Pantoprazole 40 mg EC Tab PO SCH (08:33)
[2017-01-14] MEDS: MethylPREDNISolone 40 mg Vial IVP SCH (09:27)
[2017-01-14] MEDS: POLYETHYLENE GLYCOL 3350 17 GM/Dose PACKET PO SCH (09:28)
[2017-01-14] MEDS: cefTRIAXone 1 gm 1 GM/100 ML BAG IVPB SCH (09:28)
[2017-01-14] MEDS: Azithromycin 500MG/NS 250ml 500 MG/250 ML BAG IVPB SCH ×2 (09:30→10:20)
--- NOTE | 2017-01-14 14:41 | PN ---
DATE: 01/14/2017 SUBJECTIVE: The patient is lying in bed in no acute distress. He denies chest pain or shortness of breath. There is no cough. OBJECTIVE: VITAL SIGNS: Blood pressure 136/72, temperature 97.9, pulse 84, respiratory rate 19. LUNGS: Clear. HEART: Regular rate and rhythm. ABDOMEN: Soft, nontender, bowel sounds are normoactive. EXTREMITIES: Without cyanosis, clubbing, or edema. NEUROLOGIC: The patient is awake and oriented x 3 without focal sensory or motor deficits. SKIN: Warm and dry. LABORATORY DATA: WBC is 10.9, hemoglobin 13.1, hematocrit 40.3, sodium 133, potassium 4.3, chloride 96, CO2 31, BUN 39, creatinine 1.0. Glucose 164. IMPRESSION: 1. Exacerbation of chronic obstructive pulmonary disease with bilateral pneumonia. 2. Pulmonary hypertension. 3. Cor pulmonale. 4. Paroxysmal atrial fibrillation. 5. Type 2 diabetes mellitus. 6. Hypertension. 7. Hypercholesterolemia. 8. Coronary artery disease. PLAN: Continue IV antibiotics with Zithromax and Rocephin IV. Continue cardiology followup with Dr. Rodriguez and pulmonary followup with Dr. Gómez. Taper steroids as tolerated. Social work for discha rge planning. David Morton JD, MD cc: [id number] TT: 01/14/2017 14:40:58 Confirmation # [id number] Dictation # [id number] nuno
--- NOTE | 2017-01-15 00:15 | PN ---
DATE: 01/14/2017 REFERRING PHYSICIAN: Dr. Morton. SUBJECTIVE: He is out of bed to chair, feels better, still short of breath, but improved. No nausea , no vomiting, no diarrhea. No leg pain or leg swelling. OBJECTIVE: GENERAL: In no acute distress. VITAL SIGNS: Temperature is 98, heart rate is 90, respiratory rate is 20, blood pressure 126/78, pul se ox 98% on 3 liters nasal cannula. HEENT: Moist mucous membranes. Crowded airway. Mallampati score is 4. NECK: Supple. No JVD. LUNGS: Has a prolonged expiratory phase with scattered rhonchi. HEART: S1, S2. ABDOMEN: Soft, nontender. No organomegaly. EXTREMITIES: There is no edema. NEUROLOGIC: Awake, alert, follows simple commands. MEDICATIONS: He is on Colace 100 mg twice a day, Coumadin mg given today, albuterol-Atrovent n ebulizer q. 4 hours, insulin coverage, Lasix 40 mg daily, MiraLax 17 grams daily, prednisone 20 mg da river, Protonix 40 mg daily. LABORATORY DATA: Shows hemoglobin 13.1, hematocrit 40. , WBC , platelet is 209. INR yester day 1.71. Sodium is 133, potassium 4.3, chloride , bicarbonate 31, BUN 13, creatinine 1.0, gluc ose 111, calcium 9.2. AST 32, ALT 44, alkaline phosphatase is 66. Albumin 3.4. Chest x-ray done ye shows moderate cardiomegaly, patchy alveolar infiltrate in the lower lobes. IMPRESSION AND PLAN: Chronic obstructive lung disease, interstitial infiltrate, pulmonary fibrosis a nd bronchiectasis, lobar septal thickening, hypo ventilation syndrome, sleep apnea syndrome, young betes, morbid obesity, cardiac arrhythmia improving, subcutaneous bleed of left upper extremity. I s poke to nursing staff. Blood sugar was high. He was eating cookies brought in by the family. Ngozi lizz to encourage BiPAP use. Continue p.o. and inhaled bronchodilator. Continue diuretics, out of be d to chair. Physical therapy, fall precaution. Thank you and will follow with you. Joel Gómez MD cc: [phone] TT: 01/15/2017 00:15:07 Confirmation # [id number] Dictation # [id number] mn
[2017-01-15] MEDS: Albuterol-Ipratrop 3 mg / 0.5 (3 ml) UD IH SCH ×4 (04:55→15:36)
[2017-01-15 09:05] LABS: HEMATOCRIT 42.8 % (42.0-52.0); MEAN CELL VOLUME 93.4 fL (80.0-105.0); MEAN CORPUSCULAR HEMOGLOBIN 30.3 pg (25.0-35.0); MEAN CORPUSCULAR HGB CONC 32.5 g/dl (31.0-37.0); MEAN PLATELET VOLUME 8.8 fl (7.0-11.0); WHITE BLOOD COUNT 12.5 10^3/ul (4.5-11.0)
[2017-01-15 09:18] LABS: ALB/GLOB RATIO 1.4 (1.1-1.8); ALKALINE PHOSPHATASE 74 U/L (38-133); ALT/SGPT 47 U/L (7-56); AST/SGOT 31 U/L (15-59); BILIRUBIN,TOTAL 1.8 mg/dL (0.2-1.3); BLOOD UREA NITROGEN 36 mg/dL (7-21); CALCIUM 9.5 mg/dL (8.4-10.5); CARBON DIOXIDE 34 mmol/L (21-33); CHLORIDE 95 mmol/L (95-110); GFR AFRICAN-AMERICAN > 60; GLUCOSE,RANDOM 105 mg/dL (70-110); POTASSIUM 4.1 mmol/L (3.6-5.0); SODIUM 134 mmol/L (132-148); TOTAL PROTEIN 6.1 g/dL (5.8-8.3)
[2017-01-15] MEDS: Insulin Reg-HIGH-Coverage SC SCH ×3 (09:50→18:26)
[2017-01-15] MEDS: Pantoprazole 40 mg EC Tab PO SCH (09:54)
[2017-01-15] MEDS: POLYETHYLENE GLYCOL 3350 17 GM/Dose PACKET PO SCH (09:54)
[2017-01-15 09:55] VITALS: BP 146/72
[2017-01-15 10:04] VITALS: PULSE 75; RESP 24; TEMP 97.8; O2SAT 99
--- NOTE | 2017-01-15 18:40 | PN ---
DATE: 01/15/2017 PULMONARY PROGRESS NOTE REFERRING PHYSICIAN: Dr. Morton. SUBJECTIVE: He is out of bed to chair, feels better, tolerated BiPAP well. No headache, no rhinitis . Gets short of breath with exertion. No nausea, vomiting or diarrhea. Trace leg swelling. OBJECTIVE: GENERAL: No acute distress. VITAL SIGNS: Temperature is 98, heart rate is 75, respiratory rate is 24, blood pressure 146/72, pul se ox 99% on nasal cannula. HEENT: Moist mucous membrane. Crowded airway. Mallampati score is 4. NECK: Supple. No JVD. LUNGS: Have prolonged expiratory wheeze, scattered rhonchi. HEART: S1, S2. ABDOMEN: Soft, nontender. No organomegaly. EXTREMITIES: There is trace edema. NEUROLOGIC: Awake, alert, follows simple command. MEDICATIONS: He is on Colace 100 mg twice a day, Coumadin 3 mg will be given, DuoNeb q. 6 hours, ins ulin coverage, Lasix 40 mg daily, MiraLax 17 grams daily, prednisone 20 mg daily, Protonix 40 mg megan y. LABORATORY DATA: Shows hemoglobin 13.9, hematocrit 42.8, WBC 12.5, platelet is 184. INR is 1.71. S odium 134, potassium 4.1, chloride 95, bicarbonate 34, BUN 32, creatinine 1.1, glucose 105, calcium 9 .5, AST 31, ALT 47, alkaline phosphatase is 74, albumin 3.5. IMPRESSION AND PLAN: Chronic obstructive lung disease, interstitial infiltrate, pulmonary fibrosis, bronchiectasis, lobar septum thickening, hypoventilation syndrome, sleep apnea syndrome, diabetes, mo rbid obesity, cardiac arrhythmia, improving subcutaneous bleed in the left upper extremity. Pulmonar y point of view, he is doing well. May increase Coumadin to 4 mg today. Continue p.o. and inhaled b ronchodilator. Gastric prophylaxis. Physical therapy. Fall precaution. Thank you and will follow with you. Joel Gómez MD cc: [phone] TT: 01/15/2017 18:39:09 Confirmation # [id number] Dictation # [id number] mn
--- NOTE | 2017-01-15 21:29 | DS ---
HOSPITAL COURSE: The patient is a 76-year-old male admitted through the Emergency Department on 01/07 with shortness of breath. The patient was found to have bilateral infiltrates of the lower lob es, was empirically treated for pneumonia with IV Rocephin and Zithromax. The patient has had an une ventful hospital course, he was seen in pulmonary consultation by Dr. Gómez, was started on IV stero ids which have been tapered. The patient denies any chest pain, shortness of breath, cough, hemoptys is, fevers or chills at the present time and he is medically stable for discharge. PHYSICAL EXAMINATION: VITAL SIGNS: Blood pressure 146/72, temperature 97.8, pulse 75, respiratory rate 24. LUNGS: Clear. HEART: Regular rate and rhythm. ABDOMEN: Soft, nontender, bowel sounds are normoactive. EXTREMITIES: Without cyanosis, clubbing, or edema. NEUROLOGIC: The patient is awake and oriented x 3 without focal sensory or motor deficits. SKIN: Warm and dry. LABORATORY DATA: WBC is 12.5, hemoglobin 13.9, hematocrit 42.8. Sodium 134, potassium 4.1, chloride 98, CO2 34, BUN 36, creatinine 1.1, glucose 105. IMPRESSION: 1. Exacerbation of chronic obstructive pulmonary disease with bilateral pneumonia, clinically improv ed. 2. Pulmonary hypertension. 3. Cor pulmonale 4. Paroxysmal atrial fibrillation. 5. Type 2 diabetes mellitus. 6. Hypertension. 7. Hypercholesterolemia 8. Coronary artery disease. PLAN: The patient will be discharged to home in stable condition on the following medications: Azit hromycin 500 mg daily, Z-BEN as per directions, Lasix 40 mg daily, Protonix 40 mg daily, Coumadin 3 m g daily, Colace 100 mg twice daily. He will be maintained on a consistent carbohydrate diet, activit ies ad libitum. He will be followed up in the office in the next 1-2 weeks and will be referred to [facility] for followup and cardiology, Dr. Rodriguez as well. David Morton JD, MD cc: [phone] TT: 01/15/2017 21:29:32 jn
== END 2017-01-15 21:13 | disposition home or self-care (01) | DRG 190 ==
LOC: ED 13:23 → ERH 17:51 → CCU 19:09 → 3RSO 01-08 12:26
PROVIDERS: ADMIT Internal Medicine; ATTEND Internal Medicine
PROC: 5A09457 Assistance with Respiratory Ventilation, 24-96 Consecutive Hours, Continuous Positive Airway Pressure (ICD-10-PCS; principal; 2017-01-08)
DX: J44.1 Chronic obstructive pulmonary disease with (acute) exacerbation (principal); J18.9 Pneumonia, unspecified organism; E87.3 Alkalosis; I13.0 Hypertensive heart and chronic kidney disease with heart failure and stage 1 through stage 4 chronic kidney disease, or unspecified chronic kidney disease; I27.2 Other secondary pulmonary hypertension; E66.2 Morbid (severe) obesity with alveolar hypoventilation; I50.9 Heart failure, unspecified; E11.22 Type 2 diabetes mellitus with diabetic chronic kidney disease; J44.0 Chronic obstructive pulmonary disease with (acute) lower respiratory infection; J84.10 Pulmonary fibrosis, unspecified; I48.0 Paroxysmal atrial fibrillation; I27.81 Cor pulmonale (chronic); E78.00 Pure hypercholesterolemia, unspecified; I25.10 Atherosclerotic heart disease of native coronary artery without angina pectoris; N18.9 Chronic kidney disease, unspecified; N40.0 Benign prostatic hyperplasia without lower urinary tract symptoms; E78.5 Hyperlipidemia, unspecified; Z86.718 Personal history of other venous thrombosis and embolism; Z68.34 Body mass index [BMI] 34.0-34.9, adult; Z79.01 Long term (current) use of anticoagulants; Z87.891 Personal history of nicotine dependence; Z79.84 Long term (current) use of oral hypoglycemic drugs

== ENCOUNTER 2017-01-26 21:04 | Inpatient (IN) | payer MEDICAID, OTHER ==
[2017-01-26 21:05] VITALS: PULSE 66
[2017-01-26 21:06] VITALS: BMI 35.2
--- NOTE | 2017-01-26 21:17 | ED PDOC ---
Arrival/HPI - General Time Seen by Provider: 01/26/17 21:05 Historian: Patient, Spouse, EMS - History of Present Illness Narrative History of Present Illness (Text): 01/26/17 21:02 Ricardo Red is a 76 year old male, whose past medical history includes Type 2 diabtetes, renal insufficiency, CAD, COPD, cor pulmonale, hypertension, DVT, atrial fibrillation, and CHF, who presents to the Emergency department brought in by EMS for respiratory distress. reports patient has been experiencing shortness of breath since 01:00 this morning and notes patient's pulse ox was low at that time. states patient's shortness of breath has progressively worsened throughout the day. Patient denies any chest pain, nausea , vomiting, diarrhea, neck pain, headache, dizziness, or any other complaints. PMD: Dr. Blaze Morton Book Canvasser: Dr. Rosario Rodriguez Crew Manager: Dr. Blaze Gómez Time/Duration: Other Symptom Onset: Gradual Symptom Course: Unchanged Activities at Onset: Rest, Light Context: Home Past Medical History - Provider Review Nursing Documentation Reviewed: Yes - Infectious Disease Hx of Infectious Diseases: None - Tetanus Immunization Tetanus Immunization: Unknown - Cardiac Hx Cardiac Disorders: Yes Hx Congestive Heart Failure: Yes Hx Hypertension: Yes - Pulmonary Hx Chronic Obstructive Pulmonary Disease (COPD): Yes - Neurological Hx Neurological Disorder: No - HEENT Hx HEENT Disorder: (WEARS RX GLASSES) - Renal Hx Renal Failure: Yes (chronic) - Endocrine/Metabolic Hx Diabetes Mellitus Type 2: Yes - Hematological/Oncological Hx Blood Disorders: No - Integumentary Hx Dermatological Disorder: No - Musculoskeletal/Rheumatological Hx Musculoskeletal Disorders: Yes - Gastrointestinal Hx Gastrointestinal Disorders: No - Genitourinary/Gynecological Hx Genitourinary Disorders: Yes Hx Hematuria: Yes - Psychiatric Hx Psychophysiologic Disorder: No (H/O OF CIGARETTE SMOKING 2 CIG/DAY DURING HS ONLY) Hx Substance Use: No - Surgical History Hx Cardiac Catheterization: Yes - Anesthesia Hx Anesthesia Reactions: No Hx Malignant Hyperthermia: No - Suicidal Assessment Feels Threatened In Home Enviroment: No Family/Social History - Physician Review Nursing Documentation Reviewed: Yes Family/Social History: No Known Family HX Smoking Status: Former Smoker Hx Alcohol Use: No Hx Substance Use: No Hx Substance Use Treatment: No Allergies/Home Meds Allergies/Adverse Reactions: Allergies No Known Allergies Allergy (Verified 01/07/17 13:33) Home Medications: Home Meds Medication Instructions Recorded Confirmed Docusate Sodium [Peralta' 100 mg PO TID 02/17/16 01/07/17 Laxative] Furosemide [Lasix] 40 mg PO DAILY 02/17/16 01/07/17 Potassium Chloride [K-Dur 20 mEq 20 meq PO BID 02/17/16 01/07/17 ER Tab] SITagliptin [Januvia] 50 mg PO DAILY 02/17/16 01/07/17 Warfarin Sodium [Jantoven] 3 mg PO DAILY 02/17/16 01/07/17 Review of Systems - Physician Review All systems were reviewed & negative as marked: Yes - Review of Systems Constitutional: Normal. absent: Fevers Eyes: Normal ENT: Normal Respiratory: SOB Gastrointestinal: Normal. absent: Abdominal Pain, Diarrhea, Nausea, Vomiting Genitourinary Male: Normal. absent: Dysuria, Frequency, Hematuria, Urinary Output Changes Musculoskeletal: Normal. absent: Back Pain, Neck Pain Skin: Normal. absent: Rash Neurological: Normal. absent: Headache, Dizziness Endocrine: Normal Hemo/Lymphatic: Normal Psychiatric: Normal Physical Exam Vital Signs Reviewed: Yes Vital Signs Pulse Resp BP Pulse Ox 01/26/17 21:37 142/81 01/26/17 21:10 123 H 24 143/81 88 L Temperature: Afebrile Blood Pressure: Normal Pulse: Regular Respiratory Rate: Tachypneic Appearance: Positive for: Non-Toxic Pain Distress: None Mental Status: Positive for: Alert and Oriented X 3 - Systems Exam Head: Present: Atraumatic, Normocephalic Pupils: Present: PERRL Extroacular Muscles: Present: EOMI Conjunctiva: Present: Normal Mouth: Present: Moist Mucous Membranes Neck: Present: Normal Range of Motion Respiratory/Chest: Present: Respiratory Distress, Accessory Muscle Use, Rales, Tachypneic Cardiovascular: Present: Normal S1, S2, Tachycardic. No: Murmurs Abdomen: Present: Normal Bowel Sounds. No: Tenderness, Distention, Peritoneal Signs Upper Extremity: Present: Normal Inspection. No: Cyanosis, Edema Lower Extremity: Present: Normal Inspection. No: Edema Neurological: Present: GCS=15, CN II-XII Intact Skin: Present: Warm, Dry, Normal Color. No: Rashes Psychiatric: Present: Alert, Oriented x 3, Normal Insight, Normal Concentration Medical Decision Making ED Course and Treatment: 01/26/17 21:02 Impression: 76 year old male complaining of worsening shortness of breath Differential Diagnosis included but are not limited to: pneumonia vs. ACS vs. cor pulmonale vs. sepsis vs. COPD vs. CHF Plan: -- EKG -- CXR -- Labs, BNP, cardiac enzymes, ABG -- Duoneb -- Lasix -- Reassess and disposition Prior Visits: Notes and results from previous visits were reviewed. On 01/07/2017, pt was seen in the Emergency department for PERALTA and shortness of breath. Pt was admitted to the ICU for further evaluation. Progress Notes: Pt seen on arrival to Emergency department. Placed on BiPAP. Reviewed EKG, sinus tachycardia at 129 bpm. LAD. Anteroseptal infarct. Non- specific ST/T wave changes. 01/26/17 21:15 Reviewed radiology, Chest X-ray shows increased pulmonary vascular congestion. 01/26/17 23:02 Pt tachypneic, tachycardic, WBC: 12.5, lactate: 3.3. Code Sepsis called. Pt's blood pressure has remained stable. Pt is in degree of cor pulmonale/CHF therefore pt did not receive aggressive fluids. 01/26/17 23:16 Case discussed in detail with Dr. Morton, who is aware and agrees with plan. Accepts pt in to his service. Pt will be admitted for sepsis, pneumonia, cor pulmonale, and COPD. Requests respiratory treatments, antibiotics, ICU consult, and consults with Dr. Gómez, Dr. Gomez. and Dr. Ott. Diabetes Manager paged. 01/26/17 23:[address] Jauregui, who is aware and agrees with plan. States pt can be placed on Telemetry. - Critical Care Critical Care Minutes: 45 minutes - Lab Interpretations Lab Results: 01/26/17 21:50 01/26/17 22:20 Lab Results 01/26/17 22:21: pCO2 34 L, pO2 88.0, HCO3 22.1, ABG pH 7.42, ABG Total CO2 23.1 , ABG O2 Saturation 96.7, ABG Base Excess -1.7, ABG Potassium 4.5, Sodium 135.0 , Chloride 102.0, Glucose 218 H, Lactate 1.4, FiO2 60.0, Arterial Blood Potassium 4.5 01/26/17 22:20: pO2 53, VBG pH 7.40, VBG pCO2 36.0 L, VBG HCO3 22.3, VBG Total CO2 23.4, VBG O2 Sat (Calc) 89.5 H, VBG Base Excess -2.0 L, VBG Potassium 7.8 H* , Sodium 133.0, Chloride 103.0, Glucose 194 H, Lactate 3.3 H, FiO2 21.0, Venous Blood Potassium 7.8 H* 01/26/17 22:20: Sodium 134, Chloride 103, Potassium 4.8, Carbon Dioxide 23, Anion Gap 13, BUN 23 H, Creatinine 1.4, Est GFR ( Amer) 60, Est GFR (Non- Af Amer) 50, Random Glucose 207 H, Calcium 9.0, Total Bilirubin 1.7 H, AST 27, ALT 23, Alkaline Phosphatase 100, Lactate Dehydrogenase 871 H, Total Creatine Kinase 34 L, Troponin I 0.03, NT-Pro-B Natriuret Pep 4080 H, Total Protein 7.5, Albumin 3.5, Globulin 4.0, Albumin/Globulin Ratio 0.9 L 01/26/17 21:50: Puncture Site Cancelled, pCO2 Cancelled, pO2 Cancelled, HCO3 Cancelled, ABG pH Cancelled, ABG Total CO2 Cancelled, ABG O2 Saturation Cancelled, ABG Base Excess Cancelled, Oniel Test Cancelled, ABG Potassium Cancelled, A-a O2 Difference Cancelled, Respiratory Index Cancelled, Sodium Cancelled, Chloride Cancelled, Glucose Cancelled, Lactate Cancelled, Liter Flow Cancelled, Vent Mode Cancelled, Mechanical Rate Cancelled, Spontaneous Rate Cancelled, FiO2 Cancelled, Tidal Volume Cancelled, PEEP Cancelled, Pressure Support Cancelled, CPAP Cancelled, Inspiratory BiPAP Cancelled, Expiratory BiPAP Cancelled, Blood Gas Comments Cancelled, Crit Value Called To Cancelled, Crit Value Called By Cancelled, Crit Value Read Back Cancelled, Blood Gas Notified Time Cancelled, Arterial Blood Potassium Cancelled 01/26/17 21:50: WBC 12.5 H, RBC 4.62, Hgb 14.2, Hct 42.2, MCV 91.3, MCH 30.7, MCHC 33.6, RDW 18.5 H, Plt Count 204, MPV 10.3 I have reviewed the lab results: Yes - RAD Interpretation Radiology Orders: 01/26/17 21:06 CHEST PORTABLE [RAD] Stat Rate Quoting Operator: ED Physician - EKG Interpretation Interpreted by ED Physician: Yes Type: 12 lead EKG - Medication Orders Current Medication Orders: Albuterol/Ipratropium (Duoneb 3 Mg/0.5 Mg (3 Ml) Ud) 3 ml IH Q3H PRN PRN Reason: Wheezing Vancomycin HCl (Vancomycin 1gm) 1 gm in 250 mls @ 133.333 mls/hr IVPB STAT STA PRN Reason: Protocol Stop: 01/27/17 01:00 Last Admin: 01/26/17 23:56 Dose: 133.333 mls/hr Discontinued Medications Albuterol/Ipratropium (Duoneb 3 Mg/0.5 Mg (3 Ml) Ud) 3 ml IH ONCE STA Stop: 01/26/17 21:21 Last Admin: 01/26/17 21:37 Dose: 3 ml Furosemide (Lasix) 80 mg IVP ONCE ONE Stop: 01/26/17 21:08 Last Admin: 01/26/17 21:37 Dose: 80 mg Meropenem 1g/NS 100mL IVPB (Meropenem 1g/Ns 100ml Ivpb) 1 gm in 100 mls @ 100 mls/hr IVPB STAT STA PRN Reason: Protocol Stop: 01/27/17 00:03 Last Admin: 01/26/17 23:22 Dose: 100 mls/hr Sodium Chloride (Sodium Chloride 0.45%) 1,000 mls @ 100 mls/hr IV .Q10H [facility] Last Admin: 01/26/17 23:58 Dose: 100 mls/hr - Scribe Statement The provider has reviewed the documentation as recorded by the Beck Mallory Provider Attestation: All medical record entries made by the Beck were at my direction and personally dictated by me. I have reviewed the chart and agree that the record accurately reflects my personal performance of the history, physical exam, medical decision making, and the department course for this patient. I have also personally directed, reviewed, and agree with the discharge instructions and disposition. Disposition/Present on Arrival - Present on Arrival Any Indicators Present on Arrival: No History of DVT/PE: No History of Uncontrolled Diabetes: No Urinary Catheter: No History of Decub. Ulcer: No History Surgical Site Infection Following: None - Disposition Have Diagnosis and Disposition been Completed?: Yes Diagnosis: Congestive heart failure, COPD exacerbation, Pneumonia, Sepsis Disposition: HOSPITALIZED Disposition Time: 23:30 Patient Plan: Admission Patient Problems: Current Active Problems Problem Status Onset COPD exacerbation Acute Congestive heart failure Acute Pneumonia Acute Sepsis Acute Condition: GUARDED
[2017-01-26] MEDS ORDERED: Albuterol-Ipratrop 3 mg / 0.5 (3 ml) UD IH STA ×2 (21:20→21:26)
[2017-01-26 22:06] LABS: HEMATOCRIT 42.2 % (42.0-52.0); MEAN CELL VOLUME 91.3 fL (80.0-105.0); MEAN CORPUSCULAR HEMOGLOBIN 30.7 pg (25.0-35.0); MEAN CORPUSCULAR HGB CONC 33.6 g/dl (31.0-37.0); MEAN PLATELET VOLUME 10.3 fl (7.0-11.0); RED CELL DISTRIBUTION WIDTH 18.5 % (11.5-14.5); WHITE BLOOD COUNT 12.5 10^3/ul (4.5-11.0)
[2017-01-26 22:25] LABS: ARTERIAL BLOOD GAS HCO3 22.1 mmol/L (21-28); ARTERIAL BLOOD GAS PH 7.42 (7.35-7.45)
[2017-01-26 22:54] LABS: ALB/GLOB RATIO 0.9 (1.1-1.8); BILIRUBIN,TOTAL 1.7 mg/dL (0.2-1.3); POTASSIUM 4.8 mmol/L (3.6-5.0); TOTAL PROTEIN 7.5 g/dL (5.8-8.3)
[2017-01-26] MEDS ORDERED: Meropenem 1g/NS 100mL IVPB 1 GM/100 ML PIGGYBACK IVPB STA (23:04)
[2017-01-26 23:06] LABS: TROPONIN I 0.03 ng/mL
[2017-01-26] MEDS ORDERED: Vancomycin 1gm in NS 250ml 1 GM/250 ML BAG IVPB STA (23:08)
[2017-01-26] MEDS ORDERED: Sodium Chloride 0.45% 1,000 ML IV SCH (23:45)
--- NOTE | 2017-01-27 00:20 | CP.PCM.CON ---
History of Present Illness - History of Present Illness History of Present Illness: This 76 year old male is admitted with sob , began at 1Am, progressively worsened , denied chest pain, sweating , palpitation. Medical record was reviewed. ALLERGIES:No known drug allergies. PMH: DM II Renal insufficiency CAD COPD Cor pulmonale CHF HTN HLD Obesity. DEJAN BPH DVT Atrial fibrillation PAST SURGICAL HISTORY:None. FH:Non contributory. 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 HOME MEDICATIONS: Home Meds Medication Instructions Recorded Confirmed Docusate Sodium [Peralta' 100 mg PO TID 02/17/16 01/07/17 Laxative] Furosemide [Lasix] 40 mg PO DAILY 02/17/16 01/07/17 Potassium Chloride [K-Dur 20 mEq 20 meq PO BID 02/17/16 01/07/17 ER Tab] SITagliptin [Januvia] 50 mg PO DAILY 02/17/16 01/07/17 Warfarin Sodium [Jantoven] 3 mg PO DAILY 02/17/16 01/07/17 PMD:. ROS:Language barrier. Review of Systems - Review of Systems Systems not reviewed;Unavailable: Language Barrier Past Patient History - Infectious Disease Hx of Infectious Diseases: None - Tetanus Immunizations Tetanus Immunization: Unknown - Past Medical History & Family History Past Medical History?: Yes - Past Social History Smoking Status: Former Smoker - CARDIAC Hx Cardiac Disorders: Yes Hx Congestive Heart Failure: Yes Hx Hypertension: Yes - PULMONARY Hx Chronic Obstructive Pulmonary Disease (COPD): Yes - NEUROLOGICAL Hx Neurological Disorder: No - HEENT Hx HEENT Problems: (WEARS RX GLASSES) - RENAL Hx Renal Failure: Yes (chronic) - ENDOCRINE/METABOLIC Hx Diabetes Mellitus Type 2: Yes - HEMATOLOGICAL/ONCOLOGICAL Hx Blood Disorders: No - INTEGUMENTARY Hx Dermatological Problems: No - MUSCULOSKELETAL/RHEUMATOLOGICAL Hx Musculoskeletal Disorders: Yes - GASTROINTESTINAL Hx Gastrointestinal Disorders: No - GENITOURINARY/GYNECOLOGICAL Hx Genitourinary Disorders: Yes Hx Hematuria: Yes - PSYCHIATRIC Hx Psychophysiologic Disorder: No (H/O OF CIGARETTE SMOKING 2 CIG/DAY DURING HS ONLY) Hx Substance Use: No - SURGICAL HISTORY Hx Cardiac Catheterization: Yes - ANESTHESIA Hx Anesthesia Reactions: No Hx Malignant Hyperthermia: No Meds Allergies/Adverse Reactions: Allergies Allergy/AdvReac Type Severity Reaction Status Date / Time No Known Allergies Allergy Verified 01/07/17 13:33 - Medications Medications: Current Medications Albuterol/Ipratropium (Duoneb 3 Mg/0.5 Mg (3 Ml) Ud) 3 ml IH Q3H PRN PRN Reason: Wheezing Meropenem 1g/NS 100mL IVPB (Meropenem 1g/Ns 100ml Ivpb) 1 gm in 100 mls @ 100 mls/hr IVPB STAT STA PRN Reason: Protocol Stop: 01/27/17 00:03 Last Admin: 01/26/17 23:22 Dose: 100 mls/hr Vancomycin HCl (Vancomycin 1gm) 1 gm in 250 mls @ 133.333 mls/hr IVPB STAT STA PRN Reason: Protocol Stop: 01/27/17 01:00 Sodium Chloride (Sodium Chloride 0.45%) 1,000 mls @ 100 mls/hr IV .Q10H ZE[facility] Physical Exam - Constitutional Appears: Well, No Acute Distress - Head Exam Head Exam: ATRAUMATIC, NORMAL INSPECTION, NORMOCEPHALIC - Eye Exam Eye Exam: Normal appearance - ENT Exam ENT Exam: Normal External Ear Exam Additional comments: BiPAP on. - Neck Exam Neck exam: Positive for: Normal Inspection - Respiratory Exam Respiratory Exam: Wheezes (B/L), NORMAL BREATHING PATTERN. absent: Rales, Rhonchi, Respiratory Distress, Stridor - Cardiovascular Exam Cardiovascular Exam: REGULAR RHYTHM, +S1 (Noraml.), +S2 (Normal.). absent: JVD - GI/Abdominal Exam GI & Abdominal Exam: Normal Bowel Sounds, Soft. absent: Tenderness - Rectal Exam Rectal Exam: Deferred - Extremities Exam Extremities exam: Positive for: normal inspection - Back Exam Back exam: NORMAL INSPECTION - Neurological Exam Neurological exam: Alert - Psychiatric Exam Psychiatric exam: Normal Affect, Normal Mood - Skin Skin Exam: Normal Color Results - Vital Signs Recent Vital Signs: Last Vital Signs Temp Pulse 123 H 01/26/17 21:10 Resp 24 01/26/17 21:10 BP 142/81 01/26/17 21:37 Pulse Ox 88 L 01/26/17 21:10 - Labs Result Diagrams: 01/26/17 21:50 01/26/17 22:20 - Imaging and Cardiology Chest x-ray Status: Image reviewed by me (Pulmonary edema, ? infiltrate.) Assessment & Plan - Assessment and Plan (Free Text) Assessment: COPD ,CHF exacerbation. Sepsis. Leukocytosis PNA Obesity. DEJAN. BPH Atrial fibrillation. Plan: Patient is hemodynamically stable. Can be transferred to telemetry unit. Heart healthy diet. Continue BiPAP. IV antibiotics-Meropenem, Vancomycin. Nebulizer treatment. Diuretic. Cardiology consultation. Pulmonary consultation.
[2017-01-27 02:46] LABS: VENOUS BLOOD GAS BASE EXCESS 1.9 mmol/L (0.0-2.0); VENOUS BLOOD PH 7.42 (7.32-7.43)
[2017-01-27] MEDS: Albuterol-Ipratrop 3 mg / 0.5 (3 ml) UD IH PRN (07:31)
--- NOTE | 2017-01-27 09:02 | RAD ---
HISTORY: Shortness of breath COMPARISON: No prior. FINDINGS: LUNGS: There is worsening pulmonary venous congestion. There are low lung volumes. PLEURA: No significant pleural effusion identified, no pneumothorax apparent. CARDIOVASCULAR: Normal. OSSEOUS STRUCTURES: No significant abnormalities. VISUALIZED UPPER ABDOMEN: Normal. OTHER FINDINGS: None. IMPRESSION: Worsening pulmonary venous congestion.
--- NOTE | 2017-01-27 09:10 | CP.PCM.CON ---
History of Present Illness - History of Present Illness History of Present Illness: 76 year old male with PMH of HTN, DM, chronic renal failure, CAD, chronic CHF, cor pulmonale, atrial fibrillation was recently admitted in [facility] because of CHF exacerbation and was treated for this and the patient did well. The patient is now admitted again for shortness of breath on exertion and at rest, associatd with non-productive cough. The patient denies fever or chills , no nausea or vomiting, no sore throat, no abdominal pain, no diarrhea, no dysuria. In the ED, patient was found to have leukocytosis and Infectious Diseases consult is requested to further evaluate and manage. Of note, CXR was done in the ED which shows bilateral infiltrates. Review of Systems - Review of Systems All systems: reviewed and no additional remarkable complaints except (as per HPI ) Past Patient History - Infectious Disease Hx of Infectious Diseases: None - Tetanus Immunizations Tetanus Immunization: Unknown - Past Medical History & Family History Past Medical History?: Yes - Past Social History Smoking Status: Former Smoker - CARDIAC Hx Cardiac Disorders: Yes Hx Congestive Heart Failure: Yes Hx Hypercholesterolemia: Yes Hx Hypertension: Yes Hx Pacemaker: Yes Other/Comment: DVT - PULMONARY Hx Respiratory Disorders: Yes Hx Asthma: Yes Hx Bronchitis: Yes Hx Chronic Obstructive Pulmonary Disease (COPD): Yes Hx Pneumonia: Yes Other/Comment: Cor Pulmonale - NEUROLOGICAL Hx Neurological Disorder: No - HEENT Hx HEENT Problems: Yes (WEARS RX GLASSES) - RENAL Hx Chronic Kidney Disease: Yes Hx Renal Failure: Yes (chronic) - ENDOCRINE/METABOLIC Hx Endocrine Disorders: Yes Hx Diabetes Mellitus Type 2: Yes - HEMATOLOGICAL/ONCOLOGICAL Hx Blood Disorders: No - INTEGUMENTARY Hx Dermatological Problems: No - MUSCULOSKELETAL/RHEUMATOLOGICAL Hx Musculoskeletal Disorders: Yes Hx Falls: Yes - GASTROINTESTINAL Hx Gastrointestinal Disorders: No - GENITOURINARY/GYNECOLOGICAL Hx Genitourinary Disorders: Yes Hx Hematuria: Yes Hx Prostate Problems: Yes - PSYCHIATRIC Hx Psychophysiologic Disorder: No (H/O OF CIGARETTE SMOKING 2 CIG/DAY DURING HS ONLY) Hx Substance Use: No - SURGICAL HISTORY Hx Surgeries: No Hx Cardiac Catheterization: Yes - ANESTHESIA Hx Anesthesia Reactions: No Hx Malignant Hyperthermia: No Meds Allergies/Adverse Reactions: Allergies Allergy/AdvReac Type Severity Reaction Status Date / Time No Known Allergies Allergy Verified 01/07/17 13:33 - Medications Medications: Current Medications Albuterol/Ipratropium (Duoneb 3 Mg/0.5 Mg (3 Ml) Ud) 3 ml IH Q3H PRN PRN Reason: Wheezing Physical Exam - Constitutional Appears: Other (on a BiPAP, with some respiratory distress) - Head Exam Head Exam: NORMAL INSPECTION - ENT Exam ENT Exam: Mucous Membranes Moist - Neck Exam Neck exam: Negative for: Lymphadenopathy, Meningismus - Respiratory Exam Respiratory Exam: Decreased Breath Sounds, Rales (scattered) - Cardiovascular Exam Cardiovascular Exam: +S1, +S2 - GI/Abdominal Exam GI & Abdominal Exam: Soft. absent: Tenderness Results - Vital Signs Recent Vital Signs: Last Vital Signs Temp 98.6 F 01/27/17 05:14 Pulse 93 H 01/27/17 05:14 Resp 27 H 01/27/17 05:14 BP 149/86 01/27/17 05:14 Pulse Ox 99 01/27/17 05:14 - Labs Result Diagrams: 01/26/17 21:50 01/26/17 22:20 Labs: Laboratory Results - last 24 hr 01/27/17 02:30 pO2 56 H VBG pH 7.42 VBG pCO2 41.0 VBG HCO3 26.6 VBG Total CO2 27.9 VBG O2 Sat (Calc) 89.9 H VBG Base Excess 1.9 VBG Potassium 3.9 Sodium 137.0 Chloride 104.0 Glucose 144 H Lactate 1.3 FiO2 21.0 Venous Blood Potassium 3.9 Assessment & Plan - Assessment and Plan (Free Text) Plan: Assessment Systemic Inflammatory response Syndrome, consider secondary to acute decompensated heart failure, R/O healthcare-associated pneumonia HTN DM chronic renal failure CAD chronic CHF cor pulmonale atrial fibrillation morbid obesity with BMI 42 Plan started patient on Doxycycline and Cefepime pending blood cx, PCT; reviewed CXR patient is on treatment for his CHF will monitor clinically
[2017-01-27] MEDS: Cefepime IV 2 gm in NS 2 GM/100 ML BAG IVPB SCH ×2 (09:24→22:37)
--- NOTE | 2017-01-27 13:49 | CARD ---
APPROVED REPORT EKG Measurement Heart [id number] <Conclusion> Sinus tachycardia Possible Left atrial enlargement Left axis deviation Anteroseptal infarct, age undetermined Abnormal ECG
--- NOTE | 2017-01-27 15:23 | HP ---
HISTORY OF PRESENT ILLNESS: The patient is a 76-year-old male admitted through the Emergency Departm ent on 01/26/2017 with increasing shortness of breath. The patient was found to have an elevated BNP of 4080. He was given IV Lasix and started on oxygen and BiPAP in the Emergency Department. He is a dmitted to the telemetry unit for further evaluation and management. PAST MEDICAL HISTORY: The patient is status post admission 01/07/2017 for bilateral pneumonia. He re ceived IV antibiotics and pulmonary treatments and was discharged home in stable condition on 01/16/20 17. The patient has a history of COPD, CHF predominantly right-sided (cor pulmonale), type 2 diabete s mellitus, chronic renal insufficiency, coronary artery disease, pulmonary hypertension and paroxysm al atrial fibrillation. PAST SURGICAL HISTORY: Includes BPH. CURRENT MEDICATIONS: Include Coumadin 3 mg daily and Lasix 40 mg daily, Protonix 40 mg daily. ALLERGIES: The patient has no known drug allergies. FAMILY HISTORY: Noncontributory. SOCIAL HISTORY: The patient lives with his . He has no history of tobacco or alcohol use. He i s independent with ADLs and requires some assistance with IADLs. REVIEW OF SYSTEMS: Negative for any chest pain. There is no nausea, no vomiting, no diarrhea, no di aphoresis, no fever, no chills. There is a nonproductive cough. There is no hemoptysis, no rash or jaundice. PHYSICAL EXAMINATION: GENERAL: The patient is a well-developed, obese male, in no acute distress. VITAL SIGNS: Blood pressure 149/86, temperature 98.6, pulse 93, respiratory rate 27. HEENT: Head is normocephalic, atraumatic. Pupils equal, round and reactive to light. Extraocular m ovements intact. NECK: Supple, with no thyromegaly, no carotid bruit, no adenopathy. LUNGS: Show bibasilar rales with a few scattered crepitations bilaterally. ABDOMEN: Soft, obese, nontender, bowel sounds are normoactive. EXTREMITIES: With mild cyanosis, without clubbing or edema. NEUROLOGIC: The patient is awake and oriented x 3 without focal, sensory or motor deficits. SKIN: Warm and dry. LABORATORY DATA: WBCs 12.5, hemoglobin 14.2, hematocrit 42.2. Sodium 134, potassium 4.8, chloride 1 03, CO2 23, BUN 23, creatinine 1.4, glucose 207. BNP is elevated at 4080. Troponin is 0.03. Chest x-ray shows worsening pulmonary congestion bilaterally. IMPRESSION: 1. Congestive heart failure/cor pulmonale. 2. Coronary artery disease. 3. Chronic obstructive pulmonary disease. 4. Type 2 diabetes mellitus. 5. Hypertension. 6. Hypercholesterolemia. 7. Paroxysmal atrial fibrillation. PLAN: The patient is admitted to the telemetry unit. We will obtain cardiology consultation with Dr Carmel Rodriguez. Continue IV Lasix. The patient has been seen by infectious disease, Dr. Rivera, and is emp irically started on cefepime and doxycycline. We will obtain pulmonary consultation from Dr. Gómez. Prognosis is guarded. David Morton JD, MD cc: [id number] TT: 01/27/2017 15:22:38 en
[2017-01-27] MEDS: Insulin Reg-LOW-Coverage SC SCH ×2 (17:28→22:37)
[2017-01-27] MEDS: Budesonide 0.5 mg/2 ml Inhal Susp UD IH SCH (20:04)
[2017-01-27] MEDS: Arformoterol 15 mcg/2 ml Inh Sol IH SCH (20:04)
--- NOTE | 2017-01-27 20:10 | CON ---
DATE: 01/27/2017 REFERRING PHYSICIAN: Dr. Morton. REASON FOR CONSULT: Respiratory failure. HISTORY OF PRESENT ILLNESS: This is a 76-year-old gentleman known to me from the office and previous admission with chronic obstructive lung disease, has some component of interstitial lung disease, sl eep apnea syndrome, obesity hypoventilation syndrome, just recently discharged from the hospital with COPD exacerbation, hypoxemia with CO2 retention requiring noninvasive ventilation, seen by infectiou s diseases in the ER, found to have a very high proBNP, started on diuretics. Presently lying in the bed, feels much better. On noninvasive ventilation. and son are at bedside. Did have some co ugh and sputum production, but no fever, no chills, no hemoptysis, no hematemesis, no hematuria. No diarrhea reported. Not much leg swelling. PAST MEDICAL HISTORY: Chronic interstitial infiltrate with pulmonary hypertension, suspected diastol ic cardiac dysfunction, chronic lung disease, diabetes, renal insufficiency, paroxysmal atrial fibril lation, obesity. ALLERGIES: None known. SOCIAL HISTORY: Nonsmoker, nondrinker. FAMILY HISTORY: No significant cardiopulmonary disease reported. MEDICATIONS: He is on Colace 100 mg twice a day, Coumadin 3 mg daily, doxycycline 100 mg twice a day , albuterol/Atrovent nebulizer q. 3 hours p.r.n., cefepime 2 g IV q. 12 hours, Protonix 40 mg daily. REVIEW OF SYSTEMS: No headache, no rhinitis. Has some cough and shortness of breath. Had chest jason n before arrival, also has some sputum production. No nausea, no vomiting, no abdominal pain, no dys uria, no diarrhea. No significant leg swelling. PHYSICAL EXAMINATION: GENERAL: Lying in the bed with noninvasive ventilation. VITAL SIGNS: Temperature is 99, heart rate is 107, respiratory rate is 20, blood pressure 133/83, pu lse ox 98% on noninvasive ventilation with 60% oxygen. HEENT: Moist mucous membranes. Crowded airway. Mallampati score is 4. NECK: Short, thick neck. LUNGS: Has crackles at the bases, prolonged expiratory phase with rhonchi and wheezing. HEART: S1 and S2. ABDOMEN: Soft, nontender. No organomegaly. EXTREMITIES: Without much edema. NEUROLOGIC: Awake, alert, follows simple commands. LABORATORY DATA: Shows hemoglobin 14.2, hematocrit 42.2, WBC 12.5, platelet is 204. Had an ABG done yesterday, which shows pH 7.42, pCO2 of 34, O2 88; that was on noninvasive ventilation. Sodium 134, potassium 4.8, chloride 103, bicarbonate 23, BUN 23, creatinine 1.4, glucose 207, calcium 9.0, total bili 1.7, AST 27, ALT 23, alkaline phosphatase is 100. LDH 871, troponin is 0.03. ProBNP 4080, alb umin 3.5. Procalcitonin is 0.14. Chest x-ray done in the ER shows worsening pulmonary venous conges tion. IMPRESSION AND PLAN: Chronic obstructive lung disease, interstitial infiltrate, pulmonary fibrosis, bronchiectasis. Has a lobar septal thickening, hypoventilation syndrome, sleep apnea syndrome, diabe gail, morbid obesity, cardiac arrhythmia, admitted with respiratory failure component of lung di sease but I think this time is superimposed by cardiac dysfunction. He probably has a significant ___ __ on the right heart with left diastolic dysfunction. Concern could also be pulmonary embolism(?). Crystal cabrera is already on anticoagulation. We will do a venous Doppler of lower extremity. VQ scan is not shira g to be helpful because of the significant chronic lung disease. We will do a CTA. Continue antibio tics. We will add low dose of steroids. He needs a good cardiogram to assess right ventricular and left ventricular function and also look at the pulmonary artery pressures. I spoke to nursing staff, spoke to patient's son and in detail. All the questions answered. Will change his noninvasive v entilation on an as needed basis. May place on nasal cannula at time of meal. Follow up labs in the morning. Thank you and we will follow with you. Joel Gómez MD cc: [id number] TT: 01/27/2017 20:09:50 Confirmation # [id number] Dictation # [id number] ln
[2017-01-27] MEDS: MethylPREDNISolone 40 mg Vial IVP SCH (22:38)
[2017-01-28] MEDS: Pantoprazole 40 mg EC Tab PO SCH (06:31)
[2017-01-28] MEDS ORDERED: Iodixanol 320 MG/ML 100 ML BOTTLE IV ONE (07:08)
[2017-01-28 07:37] LABS: INR 1.76 (0.93-1.08)
[2017-01-28 07:54] LABS: ALB/GLOB RATIO 0.8 (1.1-1.8); ALKALINE PHOSPHATASE 82 U/L (38-133); ALT/SGPT 24 U/L (7-56); AST/SGOT 21 U/L (15-59); BILIRUBIN,TOTAL 1.6 mg/dL (0.2-1.3); BLOOD UREA NITROGEN 20 mg/dL (7-21); CALCIUM 8.9 mg/dL (8.4-10.5); CARBON DIOXIDE 24 mmol/L (21-33); CHLORIDE 105 mmol/L (98-107); GFR AFRICAN-AMERICAN > 60; GLUCOSE,RANDOM 192 mg/dL (70-110); SODIUM 134 mmol/L (132-148)
[2017-01-28] MEDS: Arformoterol 15 mcg/2 ml Inh Sol IH SCH ×2 (07:57→20:02)
[2017-01-28] MEDS: Budesonide 0.5 mg/2 ml Inhal Susp UD IH SCH ×2 (07:57→20:02)
[2017-01-28] MEDS: Insulin Reg-LOW-Coverage SC SCH ×4 (09:18→22:29)
--- NOTE | 2017-01-28 09:47 | CON ---
DATE: 01/28/2017 INDICATIONS: Shortness of breath, exacerbation of COPD, cor pulmonale. HISTORY OF PRESENT ILLNESS: This is a 76-year-old man, well known to me, admitted on 01/26 complaining of increasing shortness of breath which became much worse on the day of admission. He was brought to the Emergency Room by his family. Subsequently, he has been admitted to telemetry, undergoing pulmonary treatment and IV diuresis with Lasix. His symptoms have improved. He feels better this morning, still using BiPAP mask. However, there was some vague chest discomfort, but no severe chest pain. There was orthopnea, but no syncope , presyncope, lightheadedness, dizziness or vertigo. No palpitations. He has chronic edema. No fever, chills, hemoptysis, abdominal pain, nausea, vomiting, diarrhea, constipation, or melena. PAST MEDICAL HISTORY: Notable for recent admission for respiratory insufficiency, bilateral pneumonia and COPD. He has a history of mild coronary artery disease with normal left ventricular function on a cardiac catheterization in the recent past. He has a history of diabetes, sleep apnea, pulmonary fibrosis, paroxysmal atrial fibrillation, DVT, hypertension, hyperlipidemia, BPH, cerebrovascular disease. He is a former smoker. MEDICATIONS: At the time of admission included warfarin, Colace, Lasix, potassium, and Januvia. CURRENT MEDICATIONS: Include Brovana, Colace, warfarin, doxycycline, albuterol , ipratropium, insulin coverage, cefepime, Protonix, Pulmicort, Solu-Medrol, vancomycin and Zofran. ALLERGIES: There are no medication allergies reported. SOCIAL HISTORY: He lives at home with his . He still smokes a few cigarettes. He does not drink alcohol significantly. He is ambulatory, but limited and uses home O2. FAMILY HISTORY: Noncontributory. REVIEW OF SYSTEMS: A 10-point review of systems is otherwise unremarkable except as noted above. PHYSICAL EXAMINATION: GENERAL: He is a well-developed male with a bypass mask sitting on his bed on telemetry in no acute distress. VITAL SIGNS: Notable for sinus rhythm to sinus tachycardia, 85-122 beats per minute. He had a low grade temperature of 100.2. Blood pressure 106/70, respirations are 20, O2 sat 99% on BiPAP mask. HEENT: Reveals neck vein distention. No thyromegaly, no carotid bruit. Mucous membranes moist. Conjunctivae pink. NECK: Supple. CHEST: Lung valenzuela scattered rhonchi and crepitations. HEART: Revealed normal first and second heart sounds which are obscured. PMI is not palpable. ABDOMEN: Soft, bowel sounds present. No mass, organomegaly, tenderness, rebound, guarding, CVA tenderness or palpable abdominal aortic aneurysm. EXTREMITIES: Revealed no cyanosis, clubbing. There is moderate edema. NEUROLOGIC: Awake, alert and oriented. PSYCHIATRIC: Normal as to mood and affect. SKIN: Warm and dry. No rash or cellulitis. LABORATORY AND IMAGING: EKG reveals sinus tachycardia, poor R-wave progression , nonspecific ST wave changes, left axis deviation, no significant change except for increased rate. A chest x-ray is a portable study. It reveals worsening pulmonary venous congestion. White count 12,500, hemoglobin 14.2, hematocrit 42.2, platelet count 204,000. PT 19. INR 1.76. Blood gases are noted. Electrolytes, BUN unremarkable, creatinine 1.4, bilirubin 1.7. AST, ALT normal. Alk phos normal. CK 34, troponin 0.03. BNP 4080. Procalcitonin 0.14, potassium 5.0 today, creatinine 1.3 today. Blood sugar 201. BNP 10,600. IMPRESSION: The patient is a 76-year-old man , well known to me, admitted with exacerbation of chronic obstructive pulmonary disease with cor pulmonale, congestive heart failure, sleep apnea, pulmonary fibrosis, continued smoker with a history of deep venous thrombosis, recent pneumonia, paroxysmal atrial fibrillation, hypertension, hyperlipidemia, and cerebrovascular disease. At this time, I agree with current plans. He is being followed by Dr. Gómez and is getting pulmonary treatments, steroids and antibiotics. He is getting warfarin. I will add Lasix IV and monitor I's and O's, stool for occult blood and daily labs. I will order an echocardiogram. Duplex lower extremity Dopplers have been ordered. A CT scan of the chest has been ordered to rule out pulmonary embolus. I will follow along with you. I will make additional recommendations based on his clinical course. Do not hesitate to call if there are any questions. Stan Rodriguez MD cc: [id number] TT: 01/28/2017 09:46:49 Confirmation # [id number] Dictation # [id number] esther MORAN
--- NOTE | 2017-01-28 10:43 | CP.PCM.PN ---
Subjective - Date & Time of Evaluation Date of Evaluation: 01/28/17 Time of Evaluation: 09:10 - Subjective Subjective: Comfortable, still with BiPAP use but breathing better compared to yesterday. No fevers overnight. Objective - Vital Signs/Intake and Output Vital Signs (last 24 hours): Temp Pulse Resp BP Pulse Ox 97.9 F 85 20 106/70 99 01/28/17 06:00 01/28/17 07:58 01/28/17 06:00 01/28/17 06:00 01/28/17 07:58 Intake and Output: 01/28/17 01/28/17 06:59 18:59 Intake Total 357 Output Total 300 Balance 57 - Medications Medications: Current Medications Albuterol/Ipratropium (Duoneb 3 Mg/0.5 Mg (3 Ml) Ud) 3 ml IH Q3H PRN PRN Reason: Wheezing Last Admin: 01/27/17 07:31 Dose: 3 ml Arformoterol Tartrate (Brovana) 15 mcg IH [id number] [facility] Last Admin: 01/28/17 07:57 Dose: 15 mcg Budesonide (Pulmicort Respules) 0.5 mg IH [id number] [facility] Last Admin: 01/28/17 07:57 Dose: 0.5 mg Docusate Sodium (Colace) 100 mg PO BID [facility] Last Admin: 01/27/17 17:32 Dose: 100 mg Cefepime HCl (Maxipime 2gm) 2 gm in 100 mls @ 100 mls/hr IVPB Q12 [facility] PRN Reason: Protocol Stop: 02/01/17 10:01 Last Admin: 01/27/17 22:37 Dose: 100 mls/hr Doxycycline Hyclate 100 mg/ (Sodium Chloride) 100 mls @ 100 mls/hr IVPB Q12 [facility] PRN Reason: Protocol Last Admin: 01/27/17 22:35 Dose: 100 mls/hr Insulin Human Regular (Humulin R Low) 0 units SC ACHS [facility] PRN Reason: Protocol Last Admin: 01/27/17 22:37 Dose: Not Given Methylprednisolone (Solu-Medrol) 20 mg IVP Q12 [facility] Last Admin: 01/27/17 22:38 Dose: 20 mg Pantoprazole Sodium (Protonix Ec Tab) 40 mg PO 0630 [facility] Last Admin: 01/28/17 06:31 Dose: Not Given Warfarin Sodium (Coumadin) 3 mg PO 1800 [facility] PRN Reason: Protocol Last Admin: 01/27/17 17:32 Dose: 3 mg - Labs Labs: 01/28/17 07:00 PT 19.0 Seconds (9.9-11.8) H 01/28/17 07:00 INR 1.76 (0.93-1.08) H 01/28/17 07:00 - Constitutional Appears: Non-toxic, No Acute Distress - Head Exam Head Exam: NORMAL INSPECTION - ENT Exam ENT Exam: Mucous Membranes Moist - Neck Exam Neck Exam: absent: Lymphadenopathy, Meningismus - Respiratory Exam Respiratory Exam: Decreased Breath Sounds - Cardiovascular Exam Cardiovascular Exam: +S1, +S2 - GI/Abdominal Exam GI & Abdominal Exam: Soft. absent: Tenderness Assessment and Plan - Assessment and Plan (Free Text) Assessment: Assessment Systemic Inflammatory response Syndrome, consider secondary to acute decompensated heart failure, R/O healthcare-associated pneumonia HTN DM chronic renal failure CAD chronic CHF cor pulmonale atrial fibrillation morbid obesity with BMI 42 Plan continue Doxycycline and Cefepime day 2, pending blood cx; PCT is only 0.14; reviewed CXR and we are awaiting results of the CT chest patient is on treatment for his CHF will continue to monitor clinically
[2017-01-28] MEDS: MethylPREDNISolone 40 mg Vial IVP SCH ×2 (11:24→22:28)
[2017-01-28] MEDS: Cefepime IV 2 gm in NS 2 GM/100 ML BAG IVPB SCH ×2 (11:25→22:29)
--- NOTE | 2017-01-28 12:07 | CP.PCM.PN ---
Subjective - Date & Time of Evaluation Date of Evaluation: 01/28/17 Time of Evaluation: 12:06 - Subjective Subjective: pt needs angiocath insertion. Objective - Vital Signs/Intake and Output Vital Signs (last 24 hours): Temp Pulse Resp BP Pulse Ox 97.9 F 85 20 102/59 L 99 01/28/17 06:00 01/28/17 07:58 01/28/17 06:00 01/28/17 11:24 01/28/17 07:58 Intake and Output: 01/28/17 01/28/17 06:59 18:59 Intake Total 357 Output Total 300 Balance 57 - Medications Medications: Current Medications Albuterol/Ipratropium (Duoneb 3 Mg/0.5 Mg (3 Ml) Ud) 3 ml IH Q3H PRN PRN Reason: Wheezing Last Admin: 01/27/17 07:31 Dose: 3 ml Arformoterol Tartrate (Brovana) 15 mcg IH [id number] [facility] Last Admin: 01/28/17 07:57 Dose: 15 mcg Budesonide (Pulmicort Respules) 0.5 mg IH [id number] [facility] Last Admin: 01/28/17 07:57 Dose: 0.5 mg Docusate Sodium (Colace) 100 mg PO BID [facility] Last Admin: 01/28/17 11:24 Dose: 100 mg Furosemide (Lasix) 40 mg IVP Q12 [facility] Last Admin: 01/28/17 11:24 Dose: 40 mg Cefepime HCl (Maxipime 2gm) 2 gm in 100 mls @ 100 mls/hr IVPB Q12 [facility] PRN Reason: Protocol Stop: 02/01/17 10:01 Last Admin: 01/28/17 11:25 Dose: 100 mls/hr Doxycycline Hyclate 100 mg/ (Sodium Chloride) 100 mls @ 100 mls/hr IVPB Q12 [facility] PRN Reason: Protocol Last Admin: 01/27/17 22:35 Dose: 100 mls/hr Insulin Human Regular (Humulin R Low) 0 units SC ACHS [facility] PRN Reason: Protocol Last Admin: 01/28/17 09:18 Dose: 2 units Methylprednisolone (Solu-Medrol) 20 mg IVP Q12 [facility] Last Admin: 01/28/17 11:24 Dose: 20 mg Pantoprazole Sodium (Protonix Ec Tab) 40 mg PO 0630 [facility] Last Admin: 01/28/17 06:31 Dose: Not Given Warfarin Sodium (Coumadin) 3 mg PO 1800 [facility] PRN Reason: Protocol Last Admin: 01/27/17 17:32 Dose: 3 mg - Labs Labs: 01/28/17 07:00 PT 19.0 Seconds (9.9-11.8) H 01/28/17 07:00 INR 1.76 (0.93-1.08) H 01/28/17 07:00 Assessment and Plan - Assessment and Plan (Free Text) Assessment: 22 guage angiocath inserted in rt ankle area.
--- NOTE | 2017-01-28 16:51 | PN ---
DATE: 01/28/2017 REFERRING PHYSICIAN: Dr. Morton. SUBJECTIVE: The patient is lying in the bed, head at 45 degrees, on nasal cannula. [facility]. Feels better. Tolerated BiPAP well. Decreased shortness of breath, decreased cough. No nausea , no vomiting, no diarrhea. No leg pain or leg swelling. Has multiple bruises upper extremities. OBJECTIVE: GENERAL: In no acute distress. VITAL SIGNS: Temp is 98, heart rate is 97, respiratory rate is 20, blood pressure 107/70, pulse ox 9 9% on BiPAP this morning. HEENT: Moist mucous membrane. Crowded airway. Mallampati score is 4. NECK: Supple. No JVD. LUNGS: Crackles at the bases, scattered rhonchi. HEART: S1 and S2. ABDOMEN: Soft, nontender. No organomegaly. EXTREMITIES: Does have a trace edema. Multiple ecchymotic areas in the upper extremities. NEUROLOGIC: Awake, alert, follows simple commands. MEDICATIONS: He is on Brovana inhaled twice a day, Colace 100 mg twice a day, Coumadin 3 mg will be given tonight, doxycycline 100 mg twice a day, insulin coverage, Lasix 40 mg twice a day, cefepime 2 g IV q. 12 hours, Protonix 40 mg daily, Pulmicort inhaled twice a day, Solu-Medrol 20 mg q. 12 hours. LABORATORY DATA: Reviewed. INR 1.76. Sodium 134, potassium 5.0, chloride 105, bicarbonate 24, BUN is 20, creatinine 1.3, glucose is 192, calcium is 8.9. AST 21, ALT 24, alk phos is 82. ProBNP is 10 ,600. Albumin is 3.1. Procalcitonin 0.[address] scan of the chest done and lower extremity Doppler done; report is still pending. IMPRESSION AND PLAN: Chronic obstructive lung disease, interstitial infiltrate, pulmonary fibrosis, bronchiectasis, lobar septal thickening, hypoventilation syndrome, sleep apnea syndrome, diabetes, mo rbid obesity, cardiac arrhythmia, admitted with respiratory failure, found to have heart failure, michelle vated proBNP. The patient is seen by cardiology. Waiting for echocardiogram. Pulmonary point of vi ew, CT angio and venous Doppler are ordered. Will continue anticoagulation; keep INR around 2.5. Ma y use BiPAP at night time. May use BiPAP through the daytime if short of breath. Thank you, and will follow with you. Joel Gómez MD cc: [id number] TT: 01/28/2017 16:50:08 Confirmation # [id number] Dictation # [id number] mn
--- NOTE | 2017-01-28 17:21 | PN ---
DATE: 01/28/2017 SUBJECTIVE: The patient is lying in bed in no acute distress. He is less dyspneic than previously. He denies any chest pain or shortness of breath. OBJECTIVE: VITAL SIGNS: Blood pressure 107/70, temperature 98.5, pulse 97, respiratory rate 20. LUNGS: Show few scattered crepitations and bibasilar rales. HEART: Regular rate and rhythm. ABDOMEN: Soft, obese, nontender. Bowel sounds are normoactive. EXTREMITIES: Mild cyanosis without clubbing, or edema. NEUROLOGIC: The patient is awake and oriented x 3 without focal sensory or motor deficits. SKIN: Warm and dry. LABORATORY DATA: Sodium 134, potassium 5.0, chloride 105, CO2 24, BUN 20, creatinine 1.3, glucose 19 2. BNP is elevated at 10,600. IMPRESSION: 1. Congestive heart failure/cor pulmonale. 2. Coronary artery disease. 3. Exacerbation of chronic obstructive pulmonary disease with bronchitis, rule out pneumonia. 4. Type 2 diabetes mellitus. 5. Hypertension. 6. Hypercholesterolemia. 7. Paroxysmal atrial fibrillation. 8. Chronic kidney disease. PLAN: Continue to monitor the patient on the telemetry unit. Continue IV Lasix. Cardiology followu p with Dr. Rodriguez, infectious disease followup. The patient currently on cefepime 2 grams q. 12 hour s as well as doxycycline 100 mg IV q. 12 hours. Continue pulmonary followup with Dr. Gómez. CT [address] result is pending. Continue Solu-Medrol 20 mg IV q. 12 hours. Physical therapy and social work f or discharge planning. Will obtain a PICC line for IV access from Dr. Talib Kingston. David Morton JD, MD cc: [id number] TT: 01/28/2017 17:20:48 Confirmation # [id number] Dictation # [id number] josé miguel
--- NOTE | 2017-01-28 18:33 | US ---
HISTORY: Leg pain and swelling. Evaluate for DVT PHYSICIAN(S): Talib Kingston MD. TECHNIQUE: Duplex sonography and color-flow Doppler with graded compression were used to evaluate the deep venous systems of both lower extremities. FINDINGS: The visualized deep venous systems of both lower extremities are sonographically normal and compressible. Normal wave forms and augmentation are seen. There is no sonographic evidence for deep venous thrombosis in the visualized segments of both lower extremities. There is a lobulated 4.2 cm fluid collection left popliteal fossa, consistent with a Brock's cyst IMPRESSION: No sonographic evidence for deep venous thrombosis in the visualized segments of both lower extremities.
[2017-01-29] MEDS: Pantoprazole 40 mg EC Tab PO SCH (07:00)
[2017-01-29 07:24] LABS: INR 1.89 (0.93-1.08)
[2017-01-29 07:54] LABS: BLOOD UREA NITROGEN 31 mg/dL (7-21); CARBON DIOXIDE 25 mmol/L (21-33); CHLORIDE 102 mmol/L (98-107); GFR AFRICAN-AMERICAN > 60; GLUCOSE,RANDOM 181 mg/dL (70-110); POTASSIUM 4.2 mmol/L (3.6-5.0); SODIUM 135 mmol/L (132-148)
[2017-01-29] MEDS: Budesonide 0.5 mg/2 ml Inhal Susp UD IH SCH ×2 (08:16→19:47)
[2017-01-29] MEDS: Arformoterol 15 mcg/2 ml Inh Sol IH SCH ×2 (08:16→19:46)
[2017-01-29] MEDS: Insulin Reg-LOW-Coverage SC SCH ×4 (09:00→23:08)
[2017-01-29] MEDS: MethylPREDNISolone 40 mg Vial IVP SCH ×2 (09:06→23:07)
[2017-01-29] MEDS: Cefepime IV 2 gm in NS 2 GM/100 ML BAG IVPB SCH ×2 (09:11→23:08)
--- NOTE | 2017-01-29 10:56 | CP.PCM.PN ---
Subjective - Date & Time of Evaluation Date of Evaluation: 01/29/17 Time of Evaluation: 08:40 - Subjective Subjective: Patient is breathing better, not in distress, afebrile overnight. Objective - Vital Signs/Intake and Output Vital Signs (last 24 hours): Temp Pulse Resp BP Pulse Ox 98.2 F 80 22 140/85 97 01/29/17 06:00 01/29/17 08:17 01/29/17 06:00 01/29/17 06:00 01/29/17 06:00 Intake and Output: 01/29/17 01/29/17 06:59 18:59 Intake Total 360 Output Total 700 Balance -340 - Medications Medications: Current Medications Albuterol/Ipratropium (Duoneb 3 Mg/0.5 Mg (3 Ml) Ud) 3 ml IH Q3H PRN PRN Reason: Wheezing Last Admin: 01/27/17 07:31 Dose: 3 ml Arformoterol Tartrate (Brovana) 15 mcg IH [id number] [facility] Last Admin: 01/29/17 08:16 Dose: 15 mcg Budesonide (Pulmicort Respules) 0.5 mg IH [id number] [facility] Last Admin: 01/29/17 08:16 Dose: 0.5 mg Docusate Sodium (Colace) 100 mg PO BID [facility] Last Admin: 01/28/17 18:13 Dose: 100 mg Furosemide (Lasix) 40 mg IVP Q12 [facility] Last Admin: 01/28/17 22:30 Dose: 40 mg Cefepime HCl (Maxipime 2gm) 2 gm in 100 mls @ 100 mls/hr IVPB Q12 [facility] PRN Reason: Protocol Stop: 02/01/17 10:01 Last Admin: 01/28/17 22:29 Dose: 100 mls/hr Doxycycline Hyclate 100 mg/ (Sodium Chloride) 100 mls @ 100 mls/hr IVPB Q12 [facility] PRN Reason: Protocol Last Admin: 01/28/17 22:27 Dose: 100 mls/hr Insulin Human Regular (Humulin R Low) 0 units SC ACHS [facility] PRN Reason: Protocol Last Admin: 01/28/17 22:29 Dose: Not Given Methylprednisolone (Solu-Medrol) 20 mg IVP Q12 [facility] Last Admin: 01/28/17 22:28 Dose: 20 mg Pantoprazole Sodium (Protonix Ec Tab) 40 mg PO 0630 [facility] Last Admin: 01/29/17 07:00 Dose: Not Given Warfarin Sodium (Coumadin) 3 mg PO 1800 [facility] PRN Reason: Protocol Last Admin: 01/28/17 18:14 Dose: 3 mg - Labs Labs: 01/29/17 06:30 PT 20.4 Seconds (9.9-11.8) H 01/29/17 06:30 INR 1.89 (0.93-1.08) H 01/29/17 06:30 - Constitutional Appears: Non-toxic, No Acute Distress - Head Exam Head Exam: NORMAL INSPECTION - Neck Exam Neck Exam: absent: Lymphadenopathy, Meningismus - Respiratory Exam Respiratory Exam: Decreased Breath Sounds - Cardiovascular Exam Cardiovascular Exam: +S1, +S2 - GI/Abdominal Exam GI & Abdominal Exam: Soft. absent: Tenderness Assessment and Plan - Assessment and Plan (Free Text) Plan: Assessment Systemic Inflammatory response Syndrome, consider secondary to acute decompensated heart failure, R/O healthcare-associated pneumonia HTN DM chronic renal failure CAD chronic CHF cor pulmonale atrial fibrillation morbid obesity with BMI 42 Plan continue Doxycycline and Cefepime day 3, pending blood cx; PCT is only 0.14; reviewed CXR ; if cx continue to be negative, will d/c cefepime by tomorrow patient is on treatment for his CHF will continue to monitor clinically
--- NOTE | 2017-01-29 12:33 | PN ---
DATE: 01/29/2017 SUBJECTIVE: The patient is lying in bed in no acute distress. He says his symptoms are improved. H e denies any chest pain or shortness of breath. There is mild dyspnea with exertion. OBJECTIVE: VITAL SIGNS: Blood pressure 120/78, pulse 81, temperature 98.2, respiratory rate 20. LUNGS: Show a few bibasilar rales. HEART: Regular rate and rhythm. ABDOMEN: Soft, obese, nontender. Bowel sounds are normoactive. EXTREMITIES: Without cyanosis, clubbing, or edema. NEUROLOGIC: The patient is awake and oriented x 3 without focal sensory or motor deficits. SKIN: Warm and dry. IMPRESSION: 1. Congestive heart failure/cor pulmonale. 2. Coronary artery disease. 3. Exacerbation of chronic obstructive pulmonary disease with bronchitis, rule out pneumonia. 4. Type 2 diabetes mellitus. 5. Hypertension. 6. Hypercholesterolemia. 7. Paroxysmal atrial fibrillation. 8. Chronic kidney disease. PLAN: Continue to monitor the patient on the telemetry unit. Continue IV Lasix. Cardiology followu p with Dr. Rodriguez. Continue cefepime and doxycycline IV. Infectious disease followup - Dr. Rivera. Continue pulmonary followup with Dr. Gómez. CT chest is canceled. Taper and discontinue IV Solu-Me drol as tolerated. Physical therapy and social work for discharge planning. Await PICC line placeme nt for IV access from Dr. Talib Kingston. David Morton JD, MD cc: [id number] TT: 01/29/2017 12:32:53 Confirmation # [id number] Dictation # [id number] jn
--- NOTE | 2017-01-29 12:47 | PN ---
DATE: 01/29/2017 SUBJECTIVE: The patient is seen lying in bed on telemetry in the presence of his family. He feels s omewhat better. His dyspnea is improved. His cough is improved as well. He denies any chest pain. CURRENT MEDICATIONS: Include Brovana, Colace, Coumadin, doxycycline, DuoNeb inhaler, insulin coverag e, Lasix 40 mg q. 12 hours, Maxipime, Protonix, Pulmicort and Solu-Medrol. OBJECTIVE: GENERAL: He is an overweight middle-aged man. VITAL SIGNS: His blood pressure is 120/76 with a pulse of 80 and sinus, respirations are 16. He is afebrile. HEENT: No JVD. CHEST: Bilateral coarse rhonchi with scattered rales heard. HEART: PMI displaced laterally with a systolic murmur at the lower left sternal border. ABDOMEN: Soft, protuberant with normoactive bowel sounds. EXTREMITIES: Trace ankle edema. Upper extremities edema is noted due to multiple intravenous access placements. DIAGNOSTIC DATA: Potassium 4.2, BUN and creatinine are 31 and 1.3, glucose 181. INR is 1.89. IMPRESSION: 1. Advanced chronic obstructive pulmonary disease with cor pulmonale and acute exacerbation. 2. Congestive heart failure, acute on chronic, predominantly diastolic. 3. History of pulmonary fibrosis. 4. History of deep vein thrombosis. 5. Paroxysmal atrial fibrillation. 6. Tobacco abuse. RECOMMENDATIONS: Continued bronchodilator therapy is advised. IV Lasix will be continued to maintai n a negative fluid balance. His echocardiogram was repeated and will be reviewed. However, the syst em is currently down and unable to be accessed. The need for smoking abstinence was discussed with maurisio barahona again as well. We will follow along as needed. Cade Rayo MD cc: [id number] TT: 01/29/2017 12:46:38 Confirmation # [id number] Dictation # [id number] mn
[2017-01-29] MEDS ORDERED: Lidocaine 2% Inj (20ml) ONE (13:48)
--- NOTE | 2017-01-29 15:23 | PN ---
DATE: 01/29/2017 REFERRING PHYSICIAN: Dr. Morton. SUBJECTIVE: Lying in the bed, head at 45 degrees. Tolerated BiPAP well. Still short of breath with exertion but feels better. Has some cough. No nausea, no vomiting, no diarrhea. No leg pain or le g swelling. OBJECTIVE: GENERAL: No acute distress. VITAL SIGNS: Temperature is 98, heart rate 94, respiratory rate is 20, blood pressure 138/86, pulse ox 95% on BiPAP. HEENT: Moist mucous membrane. Crowded airway. NECK: Supple. No JVD. LUNGS: Have a few crackles at the bases, scattered rhonchi. HEART: S1 and S2. ABDOMEN: Soft, nontender. No organomegaly. EXTREMITIES: There is no edema. NEUROLOGIC: Awake, alert, follows simple command. MEDICATIONS: He is on Brovana 15 mg twice a day, Colace 100 mg twice a day, Coumadin 3 mg daily, dox ycycline 100 mg q. 12 hours, Lasix 40 mg twice a day, Maxipime is 2 g IV q. 12 hours, Protonix 40 mg daily, Pulmicort inhaled twice a day, Solu-Medrol 20 mg q. 12 hours. LABORATORY DATA: Shows INR today at 1.89. Sodium ____, potassium 4.2, chloride 102, bicarbonate 25, BUN 31, creatinine 1.3, glucose 181, calcium is 9.1. IMPRESSION AND PLAN: Chronic obstructive lung disease, interstitial infiltrate, pulmonary fibrosis, bronchiectasis, lobar septal thickening, hypoventilation syndrome, sleep apnea syndrome, diabetes, mo rbid obesity, cardiac arrhythmia. Admitted with respiratory failure requiring noninvasive ventilatio n, morbid obesity, heart failure. Echocardiogram done, report is still pending. Pulmonary point of view, continue IV and inhaled bronchodilator. Encourage BiPAP use. Keep head elevated at 45 degrees . Fall precaution. Thank you, and will follow with you. Joel Gómez MD cc: [phone] TT: 01/29/2017 15:23:04 Confirmation # [id number] Dictation # [id number] mn
--- NOTE | 2017-01-29 20:20 | VASCULAR ---
PROCEDURE: Ultrasound and fluoroscopically placed left upper extremity PICC line. HISTORY: Congestive heart failure. Sepsis. Needs PICC line. PHYSICIAN(S): Talib Kingston MD. TECHNIQUE: The relative risks and indications of the procedure were explained to the patient's family and consent obtained. The patient was placed supine on the arteriogram table and the left arm prepped and draped in the usual sterile fashion. A tourniquet was applied to the left axilla. 1% Xylocaine was used to anesthetize the skin and soft tissues at the puncture site above the elbow. The left basilic vein was punctured under direct ultrasound guidance with a micropuncture set. A 0.018 guidewire was advanced centrally and used to measure the length to the SVC/RA junction. A 5 Malian single-lumen PICC line 50 cm long was advanced to the SVC/RA junction. The catheter was flushed and secured. The patient tolerated the procedure well. IMPRESSION: 1. Ultrasound and fluoroscopically placed left upper extremity PICC line. A 5 Malian single-lumen PICC line 50 cm long was advanced to the SVC/RA junction.
[2017-01-30] MEDS: Pantoprazole 40 mg EC Tab PO SCH (06:45)
[2017-01-30 07:15] LABS: INR 1.91 (0.93-1.08)
[2017-01-30] MEDS: Budesonide 0.5 mg/2 ml Inhal Susp UD IH SCH ×2 (08:18→20:05)
[2017-01-30] MEDS: Arformoterol 15 mcg/2 ml Inh Sol IH SCH ×2 (08:18→20:05)
--- NOTE | 2017-01-30 08:46 | CP.PCM.PN ---
Subjective - Date & Time of Evaluation Date of Evaluation: 01/30/17 Time of Evaluation: 07:00 - Subjective Subjective: Stable on 2R. He feels better. Martin. N/C now. Less SOB PE: Lungs: rhonchi Cor.: S1S2 Abd.: soft Ext.: edema Neuro.: alert I/O= 420/1200 Labs noted. INR 1.91 Objective - Vital Signs/Intake and Output Vital Signs (last 24 hours): Temp Pulse Resp BP Pulse Ox 97.4 F L 91 H 19 137/84 98 01/30/17 05:49 01/30/17 05:49 01/30/17 05:49 01/30/17 05:49 01/30/17 05:49 Intake and Output: 01/30/17 01/30/17 06:59 18:59 Intake Total 420 Output Total 1200 Balance -780 - Medications Medications: Current Medications Albuterol/Ipratropium (Duoneb 3 Mg/0.5 Mg (3 Ml) Ud) 3 ml IH Q3H PRN PRN Reason: Wheezing Last Admin: 01/27/17 07:31 Dose: 3 ml Arformoterol Tartrate (Brovana) 15 mcg IH [id number] [facility] Last Admin: 01/30/17 08:18 Dose: 15 mcg Budesonide (Pulmicort Respules) 0.5 mg IH [id number] [facility] Last Admin: 01/30/17 08:18 Dose: 0.5 mg Docusate Sodium (Colace) 100 mg PO BID [facility] Last Admin: 01/29/17 18:36 Dose: 100 mg Doxycycline Hyclate (Doryx) 100 mg PO Q12 [facility] PRN Reason: Protocol Last Admin: 01/29/17 23:07 Dose: 100 mg Furosemide (Lasix) 40 mg IVP Q12 [facility] Last Admin: 01/29/17 23:07 Dose: 40 mg Cefepime HCl (Maxipime 2gm) 2 gm in 100 mls @ 100 mls/hr IVPB Q12 [facility] PRN Reason: Protocol Stop: 02/01/17 10:01 Last Admin: 01/29/17 23:08 Dose: 100 mls/hr Insulin Human Regular (Humulin R Low) 0 units SC ACHS [facility] PRN Reason: Protocol Last Admin: 01/29/17 23:08 Dose: Not Given Methylprednisolone (Solu-Medrol) 20 mg IVP Q12 [facility] Last Admin: 01/29/17 23:07 Dose: 20 mg Pantoprazole Sodium (Protonix Ec Tab) 40 mg PO 0630 [facility] Last Admin: 01/30/17 06:45 Dose: 40 mg Warfarin Sodium (Coumadin) 3 mg PO 1800 [facility] PRN Reason: Protocol Last Admin: 01/29/17 18:36 Dose: 3 mg - Labs Labs: 01/29/17 06:30 PT 20.6 Seconds (9.9-11.8) H 01/30/17 05:30 INR 1.91 (0.93-1.08) H 01/30/17 05:30 Assessment and Plan - Assessment and Plan (Free Text) Plan: Assessment: Dyspnea COPD exacerbation/Cor Pulmonale Pulmonary Fibrosis DEJAN CAD, mild on cath Diabetes CKD PAF DVT HBP HLD BPH CVD Plan; Continue IV Lasix As per JOSE ANGEL Holbrook and Dr. Morton OOB/PT Monitor: labs, INR's, sats., I/O etc.
[2017-01-30] MEDS: Insulin Reg-LOW-Coverage SC SCH ×4 (08:48→22:30)
--- NOTE | 2017-01-30 09:30 | CARD ---
APPROVED REPORT EXAM: Two-dimensional and M-mode echocardiogram with Doppler and color Doppler. Other Information Quality : PoorRhythm : INDICATION Dyspnea COPD 2D DIMENSIONS Left Atrium (2D)2.7 (1.6-4.0cm)IVSd0.7 (0.7-1.1cm) LVDd3.9 (3.9-5.9cm)PWd1.1 (0.7-1.1cm) LVDs2.3 (2.5-4.0cm)FS (%) 42.1 % LVEF (%)73.8 (>50%) M-Mode DIMENSIONS Left Atrium (MM)3.80 (2.5-4.0cm)Aortic Root3.90 (2.2-3.7cm) Aortic Cusp Exc.2.10 (1.5-2.0cm) Aortic Valve AoV Peak Jmevoxsz785.0cm/Hayes Peak GR.5mmHgAI P 1/2 Utse915gw Mitral Valve MV E Ovkesony56.5cm/sMV A Kaxcujjw710.0cm/sE/A ratio0.7 TDI Lateral E' Peak V16.50cm/sMedial E' Peak V16.70cm/sE/Lateral E'4.8 E/Medial E'4.8 Tricuspid Valve TR Peak Tdmpkwcg703cv/sRAP YGXUMHWO37gmSsLF Peak Gr.36mmHg [id number] LEFT VENTRICLE The left ventricle is normal size. There is normal left ventricular wall thickness. The left ventricular function is normal. The left ventricular ejection fraction is within the normal range. There is normal LV segmental wall motion. RIGHT VENTRICLE The right ventricle is moderately dilated. ATRIA The left atrium size is normal. The right atrium is not well visualized. AORTIC VALVE The aortic valve is mildly calcified. MITRAL VALVE The mitral valve is moderately thickened but opens well. TRICUSPID VALVE The tricuspid valve is not well visualized. PULMONIC VALVE The pulmonic valve is not well visualized. GREAT VESSELS The aortic root is normal in size. PERICARDIAL EFFUSION There is no pericardial effusion. <Conclusion> Very Limited Study. Right Heart Structures not well visualized. The left ventricle is normal size. There is normal left ventricular wall thickness. The left ventricular function is normal. The right ventricle is moderately dilated. The aortic valve is mildly calcified. Aortic sclerosis.
[2017-01-30] MEDS: Cefepime IV 2 gm in NS 2 GM/100 ML BAG IVPB SCH (10:13)
--- NOTE | 2017-01-30 10:18 | PN ---
DATE: 01/30/2017 The patient is in bed in 262, bed 1. No fevers and no chills. The [facility] PHYSICAL EXAMINATION: VITAL SIGNS: His temperature is 97, blood pressure is 130/70, respiratory rate of 16. HEENT: Unremarkable. NECK: Supple. LUNGS: Have decreased breath sounds. HEART: Normal S1, S2. ABDOMEN: Soft, nontender. LABORATORY EXAMINATION: Reveals a white count of 12,500, hemoglobin of 14, platelets of 204. BUN of 31, creatinine of 1.3 and procalcitonin 0.14. Microbiology reveals the blood cultures are no growth . ASSESSMENT AND PLAN: This 76-year-old male with systemic inflammatory response syndrome acute decomp ensated congestive heart failure, hypertension, diabetes, chronic renal failure with coronary artery disease and face of chronic congestive heart failure and cor pulmonale, atrial fibrillation, and morb id obesity with a body mass index of 42. Currently on doxycycline on cefepime on day #4 with normal procalcitonin and negative cultures. We will discontinue the cefepime and complete 5-7 days of doxyc ycline p.o. The patient is also on Solu-Medrol. Monty Gomez MD cc: 350 TT: 01/30/2017 10:17:41 Confirmation # [id number] Dictation # [id number] en
[2017-01-30] MEDS: MethylPREDNISolone 40 mg Vial IVP SCH (10:21)
--- NOTE | 2017-01-30 15:43 | PN ---
DATE: 01/30/2017 SUBJECTIVE: The patient is lying in bed, in no acute distress. He denies chest pain or shortness of breath. OBJECTIVE: VITAL SIGNS: Blood pressure 141/91, temperature 97.4, pulse 104, respiratory rate 20. LUNGS: Clear. HEART: Regular rate and rhythm. ABDOMEN: Soft, nontender, bowel sounds are normoactive. EXTREMITIES: Without cyanosis, clubbing, or edema. NEUROLOGIC: The patient is awake and oriented x 3 without focal, sensory or motor deficits. SKIN: Warm and dry. IMPRESSION: 1. Congestive heart failure/cor pulmonale. 2. Coronary artery disease. 3. Chronic obstructive pulmonary disease with bronchitis, clinically improved. 4. Type 2 diabetes mellitus/obesity. 5. Hypertension. 6. Hypercholesterolemia. 7. Paroxysmal atrial fibrillation. 8. Chronic kidney disease. PLAN: We will discontinue IV Solu-Medrol. The patient's cefepime IV has been discontinued. He is n ow on p.o. doxycycline. Continue cardiology followup with Dr. Rodriguez, infectious disease followup [facility] Dr. Gomez, pulmonary followup with Dr. Gómez. Check labs in a.m. Social work for discharge planning. David Morton JD, MD cc: 353 TT: 01/30/2017 15:42:50 Confirmation # [id number] Dictation # [id number] en
--- NOTE | 2017-01-30 17:52 | PN ---
DATE: 01/30/2017 REFERRING PHYSICIAN: Dr. Morton. SUBJECTIVE: He is out of bed to chair, has a De La Cruz catheter, supplemental oxygen and feels better, d ecreased cough, decreased shortness of breath. No nausea, no vomiting, no diarrhea. Decreased leg s welling. On ambulating, pulse ox dropped down to below 90. OBJECTIVE: GENERAL: In no acute distress. VITAL SIGNS: Temp is 98, heart rate is 104, respiratory rate is 20, blood pressure 141/91, pulse ox 98% on nasal cannula. HEENT: Moist mucous membrane. Crowded airway. Mallampati score is 4. NECK: Supple. No JVD. LUNGS: Have scattered rhonchi, a few crackles at the bases. HEART: S1 and S2. ABDOMEN: Soft, nontender. No organomegaly. EXTREMITIES: No edema. NEUROLOGIC: Awake, alert, follows simple command. MEDICATIONS: He is on Brovana 15 mcg inhaled twice a day, Colace 100 mg twice a day, Coumadin 3 mg w as given yesterday, doxycycline 100 mg twice a day, albuterol/Atrovent nebulizer q. 6 hours p.r.n., L asix 40 mg q. 12 hours, Protonix 40 mg daily, Pulmicort inhaled twice a day. LABORATORY DATA: Shows INR 1.91. Electrolytes show sodium of 135, potassium 4.2, chloride 102, bica rbonate 25, BUN 31, creatinine 1.3, glucose 181, calcium 9.0. MICROBIOLOGY: Blood culture has been negative. IMPRESSION AND PLAN: Chronic obstructive lung disease, interstitial infiltrate, pulmonary fibrosis, bronchiectasis, lobar septal thickening, sleep apnea syndrome, diabetes, morbid obesity, cardiac arrh ythmia, admitted with heart failure and diuresis, now feels better. Continue continuous positive air way pressure while sleeping. Continue IV and inhaled bronchodilator. Gastric prophylaxis. Deep sera ous thrombosis prophylaxis. He is off Solu-Medrol. Thank you and we will follow with you. Joel Gómez MD cc: [phone] TT: 01/30/2017 17:51:21 Confirmation # [id number] Dictation # [id number] ln
[2017-01-31] MEDS: Pantoprazole 40 mg EC Tab PO SCH (05:47)
[2017-01-31 06:10] LABS: ADD MANUAL DIFF? NO
[2017-01-31 06:19] LABS: BASO # 0.01 K/mm3 (0.0-2.0); BASO % 0.1 % (0.0-3.0); EOS # 0.1 (0.0-0.7); EOS % 0.6 % (1.5-5.0); GRAN # 5.41 (1.4-6.5); GRAN % 61.2 % (50.0-68.0); HEMATOCRIT 40.5 % (42.0-52.0); LYMPH # 2.5 (1.2-3.4); LYMPH % 28.2 % (22.0-35.0); MEAN CORPUSCULAR HEMOGLOBIN 30.5 pg (25.0-35.0); MEAN CORPUSCULAR HGB CONC 33.1 g/dl (31.0-37.0); MEAN PLATELET VOLUME 9.6 fl (7.0-11.0); MONO # 0.9 (0.1-0.6); MONO % 9.9 % (1.0-6.0); PLATELET COUNT 163 10^3/uL (120.0-450.0); WHITE BLOOD COUNT 8.9 10^3/ul (4.5-11.0)
[2017-01-31 06:24] LABS: INR 2.08 (0.93-1.08)
[2017-01-31 06:37] LABS: ALB/GLOB RATIO 0.8 (1.1-1.8); ALKALINE PHOSPHATASE 79 U/L (38-133); ALT/SGPT 28 U/L (7-56); AST/SGOT 23 U/L (15-59); BILIRUBIN,TOTAL 1.2 mg/dL (0.2-1.3); BLOOD UREA NITROGEN 47 mg/dL (7-21); CARBON DIOXIDE 31 mmol/L (21-33); CHLORIDE 97 mmol/L (98-107); GFR AFRICAN-AMERICAN > 60; GLUCOSE,RANDOM 111 mg/dL (70-110); POTASSIUM 3.3 mmol/L (3.6-5.0); SODIUM 136 mmol/L (132-148); TOTAL PROTEIN 6.7 g/dL (5.8-8.3)
--- NOTE | 2017-01-31 08:07 | CP.PCM.PN ---
Subjective - Date & Time of Evaluation Date of Evaluation: 01/31/17 Time of Evaluation: 07:00 - Subjective Subjective: Stable on 2R. He feels better. BiPap at night, N/C now. Less SOB. He feels better PE: Lungs: few rhonchi Cor.: S1S2 Abd.: soft Ext.: no edema Neuro.: alert I/O= 2080/3800 Labs noted. INR 2.08, K+= 3.3 BC x2 NG at 24 hrs. Objective - Vital Signs/Intake and Output Vital Signs (last 24 hours): Temp Pulse Resp BP Pulse Ox 97.4 F L 81 19 130/87 97 01/31/17 06:00 01/31/17 06:00 01/31/17 06:00 01/31/17 06:00 01/31/17 06:00 Intake and Output: 01/31/17 01/31/17 06:59 18:59 Intake Total 740 Output Total 2500 Balance -1760 - Medications Medications: Current Medications Albuterol/Ipratropium (Duoneb 3 Mg/0.5 Mg (3 Ml) Ud) 3 ml IH Q3H PRN PRN Reason: Wheezing Last Admin: 01/27/17 07:31 Dose: 3 ml Arformoterol Tartrate (Brovana) 15 mcg IH [id number] [facility] Last Admin: 01/30/17 20:05 Dose: 15 mcg Budesonide (Pulmicort Respules) 0.5 mg IH [id number] [facility] Last Admin: 01/30/17 20:05 Dose: 0.5 mg Docusate Sodium (Colace) 100 mg PO BID [facility] Last Admin: 01/30/17 18:14 Dose: 100 mg Doxycycline Hyclate (Doryx) 100 mg PO Q12 [facility] PRN Reason: Protocol Last Admin: 01/30/17 22:35 Dose: 100 mg Furosemide (Lasix) 40 mg IVP Q12 [facility] Last Admin: 01/30/17 22:34 Dose: 40 mg Insulin Human Regular (Humulin R Low) 0 units SC ACHS [facility] PRN Reason: Protocol Last Admin: 01/30/17 22:30 Dose: Not Given Pantoprazole Sodium (Protonix Ec Tab) 40 mg PO 0630 [facility] Last Admin: 01/31/17 05:47 Dose: 40 mg Warfarin Sodium (Coumadin) 3 mg PO 1800 [facility] PRN Reason: Protocol Last Admin: 01/30/17 18:14 Dose: 3 mg - Labs Labs: 01/31/17 05:15 01/31/17 05:15 PT 22.5 Seconds (9.9-11.8) H 01/31/17 05:15 INR 2.08 (0.93-1.08) H 01/31/17 05:15 Assessment and Plan - Assessment and Plan (Free Text) Plan: Assessment: Dyspnea COPD exacerbation/Cor Pulmonale Pulmonary Fibrosis DEJAN CAD, mild on cath Diabetes CKD PAF DVT HBP HLD BPH CVD Plan; Continue IV Lasix Replace K+ As per PulJOSE ANGEL mckeon and Dr. Morton OOB/PT Monitor: labs, INR's, sats., I/O etc.
[2017-01-31] MEDS: Insulin Reg-LOW-Coverage SC SCH ×4 (08:11→22:01)
[2017-01-31] MEDS: Budesonide 0.5 mg/2 ml Inhal Susp UD IH SCH ×2 (08:13→19:26)
[2017-01-31] MEDS: Arformoterol 15 mcg/2 ml Inh Sol IH SCH ×2 (08:13→19:26)
--- NOTE | 2017-01-31 10:34 | CP.PCM.PN ---
Subjective - Date & Time of Evaluation Date of Evaluation: 01/31/17 Time of Evaluation: 08:50 - Subjective Subjective: Comfortable, not in distress, no fevers overnight. Objective - Vital Signs/Intake and Output Vital Signs (last 24 hours): Temp Pulse Resp BP Pulse Ox 97.4 F L 81 19 130/87 97 01/31/17 06:00 01/31/17 06:00 01/31/17 06:00 01/31/17 06:00 01/31/17 06:00 Intake and Output: 01/31/17 01/31/17 06:59 18:59 Intake Total 740 Output Total 2500 Balance -1760 - Medications Medications: Current Medications Albuterol/Ipratropium (Duoneb 3 Mg/0.5 Mg (3 Ml) Ud) 3 ml IH Q3H PRN PRN Reason: Wheezing Last Admin: 01/27/17 07:31 Dose: 3 ml Arformoterol Tartrate (Brovana) 15 mcg IH [id number] [facility] Last Admin: 01/31/17 08:13 Dose: 15 mcg Budesonide (Pulmicort Respules) 0.5 mg IH [id number] [facility] Last Admin: 01/31/17 08:13 Dose: 0.5 mg Docusate Sodium (Colace) 100 mg PO BID [facility] Last Admin: 01/30/17 18:14 Dose: 100 mg Doxycycline Hyclate (Doryx) 100 mg PO Q12 [facility] PRN Reason: Protocol Last Admin: 01/30/17 22:35 Dose: 100 mg Furosemide (Lasix) 40 mg IVP Q12 [facility] Last Admin: 01/30/17 22:34 Dose: 40 mg Insulin Human Regular (Humulin R Low) 0 units SC ACHS [facility] PRN Reason: Protocol Last Admin: 01/31/17 08:11 Dose: Not Given Pantoprazole Sodium (Protonix Ec Tab) 40 mg PO 0630 [facility] Last Admin: 01/31/17 05:47 Dose: 40 mg Potassium Chloride (K-Dur 20 Meq Er Tab) 20 meq PO TID [facility] Warfarin Sodium (Coumadin) 3 mg PO 1800 [facility] PRN Reason: Protocol Last Admin: 01/30/17 18:14 Dose: 3 mg - Labs Labs: 01/31/17 05:15 01/31/17 05:15 PT 22.5 Seconds (9.9-11.8) H 01/31/17 05:15 INR 2.08 (0.93-1.08) H 01/31/17 05:15 - Constitutional Appears: Non-toxic, No Acute Distress - Head Exam Head Exam: NORMAL INSPECTION - ENT Exam ENT Exam: Mucous Membranes Moist - Neck Exam Neck Exam: absent: Lymphadenopathy, Meningismus - Respiratory Exam Respiratory Exam: Decreased Breath Sounds - Cardiovascular Exam Cardiovascular Exam: +S1, +S2 - GI/Abdominal Exam GI & Abdominal Exam: Soft. absent: Tenderness Assessment and Plan - Assessment and Plan (Free Text) Plan: Assessment Systemic Inflammatory response Syndrome, consider secondary to acute decompensated heart failure, R/O healthcare-associated pneumonia HTN DM chronic renal failure CAD chronic CHF cor pulmonale atrial fibrillation morbid obesity with BMI 42 Plan continue Doxycycline day 6 to complete 7 days of therapy patient continue to be on treatment for his CHF will continue to monitor clinically
[2017-01-31] MEDS: Potassium Chloride 20 mEq ER Tab PO SCH ×3 (11:26→20:04)
--- NOTE | 2017-01-31 11:28 | PN ---
DATE: 01/31/2017 SUBJECTIVE: The patient is lying in bed, in no acute distress. He denies chest pain or shortness of breath. OBJECTIVE: VITAL SIGNS: Blood pressure 130/87, temperature 97.4, pulse 87, respiratory rate 19. LUNGS: Clear. HEART: Regular rate and rhythm. ABDOMEN: Soft, nontender, bowel sounds are normoactive. EXTREMITIES: Without cyanosis, clubbing, or edema. NEUROLOGIC: The patient is awake and oriented x 3 without focal, sensory or motor deficits. SKIN: Warm and dry. LABORATORY DATA: WBCs 8.9, hemoglobin 13.4, hematocrit 40.5. Sodium 136, potassium 3.3, chloride 97 , CO2 31, BUN 47, creatinine 1.2, glucose 111. IMPRESSION: 1. Congestive heart failure/cor pulmonale. 2. Coronary artery disease. 3. Chronic obstructive pulmonary disease with bronchitis, clinically improved. 4. Type 2 diabetes mellitus/obesity. 5. Hypertension. 6. Hypercholesterolemia. 7. Paroxysmal atrial fibrillation. 8. Chronic kidney disease. 9. Mild hypokalemia, secondary to diuretics. PLAN: Continue cardiology followup with Dr. Rodriguez, infectious disease followup with Dr. Gomez and pulmonary followup with Dr. Gómez. Potassium supplementation has been ordered. Repeat electrol ytes in a.m. Physical therapy and social work for discharge planning. David Morton JD, MD cc: [id number] TT: 01/31/2017 11:27:24 Confirmation # [id number] Dictation # [id number] en
--- NOTE | 2017-01-31 19:41 | PN ---
DATE: 01/31/2017 REFERRING PHYSICIAN: Dr. Morton. SUBJECTIVE: He is lying in the bed, head at 45 degrees, feels better, tolerated BiPAP well, decrease d cough and shortness of breath. No nausea, no vomiting, no diarrhea. No leg pain or leg swelling. OBJECTIVE: GENERAL: No acute distress. VITAL SIGNS: Temperature 98, heart rate 96, respiratory rate is 18, blood pressure 122/81, pulse ox 97% on BiPAP with supplement oxygen. HEENT: Moist mucous membranes. Crowded airway. Mallampati score is 4. NECK: Supple, no JVD. LUNGS: Has a few crackles at the bases. HEART: S1 and S2. ABDOMEN: Soft, nontender. No organomegaly. EXTREMITIES: There is no edema. NEUROLOGIC: Awake, alert, follows simple commands. MEDICATIONS: He is on Brovana 15 mcg inhaled twice a day, Colace 100 mg twice a day, Coumadin 3 mg d aily, doxycycline 100 mg twice a day, DuoNeb q. 3 hours p.r.n., insulin coverage, potassium 20 mEq 3 times a day, Lasix 40 mg twice a day, Protonix 40 mg daily, Pulmicort inhaled twice a day. LABORATORY DATA: Shows hemoglobin 13.4, hematocrit 40.5, WBC 8.9, and platelet count is 163. INR is 2.08. Sodium 136, potassium 3.3, chloride 97, bicarbonate 31, BUN 47, creatinine 1.2, glucose is 11 1, calcium is 9.0, AST 23, ALT 28, alkaline phosphatase is 79, albumin is 3.1. MICROBIOLOGY: Blood culture has been negative. IMPRESSION AND PLAN: Chronic obstructive lung disease, interstitial infiltrate, pulmonary fibrosis a nd bronchiectasis, lobar septal thickening, sleep apnea syndrome, diabetes, morbid obesity, cardiac a rrhythmia, heart failure, slowly improving. Will continue p.o. and inhaled bronchodilator. Ke ep head elevated at 45 degrees. BiPAP while sleeping, diuretics, gastric prophylaxis, deep venous th rombosis prophylaxis, out of bed to chair, start physical therapy. Follow up labs in the morning and replace potassium. Thank you and we will follow with you. Joel Gómez MD cc: [id number] TT: 01/31/2017 19:40:50 Confirmation # [id number] Dictation # [id number] ln
[2017-02-01] MEDS: Pantoprazole 40 mg EC Tab PO SCH (06:05)
[2017-02-01 07:10] LABS: INR 2.05 (0.93-1.08)
[2017-02-01 07:17] LABS: BLOOD UREA NITROGEN 45 mg/dL (7-21); CALCIUM 9.3 mg/dL (8.4-10.5); CARBON DIOXIDE 33 mmol/L (21-33); CHLORIDE 97 mmol/L (98-107); GFR AFRICAN-AMERICAN > 60; GLUCOSE,RANDOM 111 mg/dL (70-110); SODIUM 136 mmol/L (132-148)
[2017-02-01] MEDS: Arformoterol 15 mcg/2 ml Inh Sol IH SCH ×2 (07:59→20:35)
[2017-02-01] MEDS: Budesonide 0.5 mg/2 ml Inhal Susp UD IH SCH ×2 (07:59→20:35)
--- NOTE | 2017-02-01 08:07 | CP.PCM.PN ---
Subjective - Date & Time of Evaluation Date of Evaluation: 02/01/17 Time of Evaluation: 07:00 - Subjective Subjective: Stable on 2R. He feels better. BiPap at night. Less SOB. He feels better. PE: Lungs: few rhonchi Cor.: S1S2 Abd.: soft Ext.: no edema Neuro.: alert Labs noted. INR 2.05, K+= 4.0 BC x2 NG at 48 hrs. Objective - Vital Signs/Intake and Output Vital Signs (last 24 hours): Temp Pulse Resp BP Pulse Ox 97.2 F L 101 H 19 116/80 97 01/31/17 20:48 02/01/17 02:40 01/31/17 20:48 01/31/17 22:21 01/31/17 06:00 Intake and Output: 02/01/17 02/01/17 06:59 18:59 Intake Total 597 Output Total 300 Balance 297 - Medications Medications: Current Medications Albuterol/Ipratropium (Duoneb 3 Mg/0.5 Mg (3 Ml) Ud) 3 ml IH Q3H PRN PRN Reason: Wheezing Last Admin: 01/27/17 07:31 Dose: 3 ml Arformoterol Tartrate (Brovana) 15 mcg IH [id number] [facility] Last Admin: 02/01/17 07:59 Dose: 15 mcg Budesonide (Pulmicort Respules) 0.5 mg IH [id number] [facility] Last Admin: 02/01/17 07:59 Dose: 0.5 mg Docusate Sodium (Colace) 100 mg PO BID [facility] Last Admin: 01/31/17 18:35 Dose: 100 mg Doxycycline Hyclate (Doryx) 100 mg PO Q12 [facility] PRN Reason: Protocol Last Admin: 01/31/17 22:27 Dose: 100 mg Furosemide (Lasix) 40 mg IVP Q12 [facility] Last Admin: 01/31/17 22:21 Dose: 40 mg Insulin Human Regular (Humulin R Low) 0 units SC ACHS [facility] PRN Reason: Protocol Last Admin: 01/31/17 22:01 Dose: Not Given Pantoprazole Sodium (Protonix Ec Tab) 40 mg PO 0630 [facility] Last Admin: 02/01/17 06:05 Dose: 40 mg Potassium Chloride (K-Dur 20 Meq Er Tab) 20 meq PO TID [facility] Last Admin: 01/31/17 20:04 Dose: 20 meq Warfarin Sodium (Coumadin) 3 mg PO 1800 [facility] PRN Reason: Protocol Last Admin: 01/31/17 18:36 Dose: 3 mg - Labs Labs: 01/31/17 05:15 02/01/17 06:53 PT 22.1 Seconds (9.9-11.8) H 02/01/17 06:53 INR 2.05 (0.93-1.08) H 02/01/17 06:53 Assessment and Plan - Assessment and Plan (Free Text) Plan: Assessment: Dyspnea COPD exacerbation/Cor Pulmonale Pulmonary Fibrosis DEJAN CAD, mild on cath Diabetes CKD PAF DVT HBP HLD BPH CVD Plan; Continue IV Lasix and PO KCL Pulm tx. As per JOSE ANGEL Holbrook and Dr. Morton OOB/PT Monitor: labs, INR's, sats., I/O etc.
[2017-02-01] MEDS: Insulin Reg-LOW-Coverage SC SCH ×3 (08:41→17:43)
[2017-02-01] MEDS: Potassium Chloride 20 mEq ER Tab PO SCH ×3 (09:43→17:41)
--- NOTE | 2017-02-01 10:12 | PN ---
DATE: 02/01/2017 SUBJECTIVE: The patient is in bed in no acute distress, seen in room 262, bed 1, earlier this mornin g. There have been no fevers reported. PHYSICAL EXAMINATION: VITAL SIGNS: Temperature is 97, blood pressure is 114/70, respiratory rate of 20, pulse of 101. HEENT: Unremarkable. NECK: Supple. LUNGS: Have decreased breath sounds. HEART: Normal S1, S2. ABDOMEN: Soft, nontender. LABORATORY EXAMINATION: Reveals a white count of 12,500 and it is down to 8900. Chemistries are not ed with a creatinine of 1.5. The procalcitonin is 0.14 and the AST is normal at 23, ALT is also norm al at 28 with an alk phos of 79 which is also within normal limits. Microbiology reveals the blood c ultures are no growth. Review of the orders reveals the patient to be on p.o. doxycycline. Dr. Scotty lyman's note is reviewed. ASSESSMENT AND PLAN: A 76-year-old with systemic inflammatory response syndrome, decompensated conge stive heart failure, hypertension, diabetes mellitus, chronic renal failure, chronic congestive heart failure and cor pulmonale, atrial fibrillation, morbid obesity, day #7 of doxycycline. We will disc ontinue the doxycycline after today's last dose. Monty Gomez MD cc: 350 TT: 02/01/2017 10:11:09 Confirmation # [id number] Dictation # [id number] tn
--- NOTE | 2017-02-01 12:32 | PN ---
DATE: 02/01/2017 SUBJECTIVE: The patient is lying in bed in no acute distress. He denies chest pain or shortness of breath. OBJECTIVE: VITAL SIGNS: Blood pressure 114/73, temperature 97.4, pulse 97, respiratory rate 20. LUNGS: Clear. HEART: Regular rate and rhythm. ABDOMEN: Soft, nontender, bowel sounds are normoactive. EXTREMITIES: Without cyanosis, clubbing, or edema. NEUROLOGIC: The patient is awake and oriented x 3 without focal sensory or motor deficits. SKIN: Warm and dry. IMPRESSION: 1. Congestive heart failure/cor pulmonale. 2. Coronary artery disease. 3. Chronic obstructive pulmonary disease with bronchitis, clinically improved. 4. Type 2 diabetes mellitus/obesity. 5. Hypertension. 6. Hypercholesterolemia. 7. Paroxysmal atrial fibrillation. 8. Chronic kidney disease. PLAN: Continue cardiology followup with Dr. Rodriguez, infectious disease followup with Dr. Gomez and pulmonary followup with Dr. Gómez. Physical therapy and social work for discharge planning. David Morton JD, MD cc: 353 TT: 02/01/2017 12:31:39 Confirmation # [id number] Dictation # [id number] jn
[2017-02-01] MEDS: Albuterol-Ipratrop 3 mg / 0.5 (3 ml) UD IH PRN (16:12)
[2017-02-01 16:13] LABS: ARTERIAL BLOOD GAS HCO3 27.1 mmol/L (21-28); ARTERIAL BLOOD GAS PH 7.45 (7.35-7.45)
[2017-02-01 16:14] LABS: ADD MANUAL DIFF? NO
[2017-02-01 16:22] LABS: BASO # 0.03 K/mm3 (0.0-2.0); BASO % 0.3 % (0.0-3.0); EOS # 0.1 (0.0-0.7); EOS % 1.1 % (1.5-5.0); GRAN % 56.8 % (50.0-68.0); HEMATOCRIT 45.9 % (42.0-52.0); LYMPH # 3.8 (1.2-3.4); LYMPH % 33.4 % (22.0-35.0); MEAN CELL VOLUME 93.5 fL (80.0-105.0); MEAN CORPUSCULAR HEMOGLOBIN 30.5 pg (25.0-35.0); MEAN CORPUSCULAR HGB CONC 32.7 g/dl (31.0-37.0); MEAN PLATELET VOLUME 9.3 fl (7.0-11.0); MONO % 8.4 % (1.0-6.0); PLATELET COUNT 168 10^3/uL (120.0-450.0); WHITE BLOOD COUNT 11.4 10^3/ul (4.5-11.0)
[2017-02-01 16:30] LABS: INR 2.74 (0.93-1.08)
[2017-02-01 16:35] LABS: ALB/GLOB RATIO 0.9 (1.1-1.8); ALKALINE PHOSPHATASE 107 U/L (38-133); ALT/SGPT 25 U/L (7-56); AST/SGOT 35 U/L (15-59); BILIRUBIN,TOTAL 1.5 mg/dL (0.2-1.3); BLOOD UREA NITROGEN 44 mg/dL (7-21); CALCIUM 9.4 mg/dL (8.4-10.5); CARBON DIOXIDE 28 mmol/L (21-33); CHLORIDE 95 mmol/L (95-110); GFR AFRICAN-AMERICAN > 60; GLUCOSE,RANDOM 220 mg/dL (70-110); POTASSIUM 4.7 mmol/L (3.6-5.0); SODIUM 135 mmol/L (132-148); TOTAL PROTEIN 7.7 g/dL (5.8-8.3)
--- NOTE | 2017-02-01 16:47 | RAD ---
HISTORY: constipation COMPARISON: No prior. FINDINGS: BOWEL: Mild fecal impaction. No evidence of bowel obstruction BONES: Normal. OTHER FINDINGS: Bilateral lower lobe infiltrates incompletely visualize. IMPRESSION: Mild fecal impaction without evidence of bowel obstruction.
[2017-02-01 16:49] LABS: TROPONIN I < 0.01 ng/mL
--- NOTE | 2017-02-01 16:53 | RAD ---
HISTORY: constipation COMPARISON: 01/26/2017. FINDINGS: LUNGS: Persistent bilateral lower lobe infiltrates right greater than left without appreciable interval change. PLEURA: No significant pleural effusion identified, no pneumothorax apparent. CARDIOVASCULAR: No radiographic findings to suggest acute or significant cardiovascular disease. PICC line in satisfactory position a new finding compared to the prior study. OSSEOUS STRUCTURES: No significant abnormalities. VISUALIZED UPPER ABDOMEN: Normal. OTHER FINDINGS: None. IMPRESSION: Persistent bilateral lower lobe infiltrates.
[2017-02-01] MEDS: POLYETHYLENE GLYCOL 3350 17 GM/Dose PACKET PO SCH (17:42)
--- NOTE | 2017-02-01 17:52 | CP.PCM.PN ---
<Hari Solis - Last Filed: 02/01/17 17:48> Subjective - Date & Time of Evaluation Date of Evaluation: 02/01/17 Time of Evaluation: 03:52 - Subjective Subjective: Rapid response note for Dr. Roca - Hari Solis PGY1 Rapid response called on room 376-01 at 3:49pm. Mr. Red was seen at bedside alert, oriented and in distress at the bedside. Per nursing, the patient had been complaining of constipation and the inability to have a bowel movement for the past several days. He was found having difficulty breathing and tachypneic. Vitals on arrival were as follows: respiratory rate 28, oxygen saturation 88%, blood pressure 120/84, heart rate 104bpm, fingerstick 161. The patient was promptly examined, placed on the monitor and received a STAT duoneb treatment. He was placed on O2 via nonrebreather and his O2 at that time improved and maintained greater than 95%. EKG revealed sinus tachycardia at 105bpm with no acute ST-T wave changes. STAT labs were ordered and included CBC , CMP, BNP, ABG, troponin, PT/INR, abdominal flat plate. He was hemodynamically stable and his breathing improved. Nursing was notified to keep careful watch of the patient and a call was put out to his PMD, Dr. Morton. Objective - Vital Signs/Intake and Output Vital Signs (last 24 hours): Temp Pulse Resp BP Pulse Ox 97.4 F L 97 H 20 114/73 97 02/01/17 06:00 02/01/17 06:00 02/01/17 06:00 02/01/17 09:42 02/01/17 06:00 Intake and Output: 02/01/17 02/01/17 06:59 18:59 Intake Total 837 Output Total 1000 Balance -163 - Medications Medications: Current Medications Arformoterol Tartrate (Brovana) 15 mcg IH [id number] [facility] Last Admin: 02/01/17 07:59 Dose: 15 mcg Budesonide (Pulmicort Respules) 0.5 mg IH [id number] [facility] Last Admin: 02/01/17 07:59 Dose: 0.5 mg Docusate Sodium (Colace) 100 mg PO BID [facility] Last Admin: 02/01/17 17:42 Dose: 100 mg Doxycycline Hyclate (Doryx) 100 mg PO Q12 [facility] PRN Reason: Protocol Last Admin: 02/01/17 09:43 Dose: 100 mg Potassium Chloride 10 meq/ (Sodium Chloride) 1,005 mls @ 60 mls/hr IV .[id number] [facility] Insulin Human Regular (Humulin R Low) 0 units SC ACHS [facility] PRN Reason: Protocol Last Admin: 02/01/17 17:43 Dose: Not Given Pantoprazole Sodium (Protonix Ec Tab) 40 mg PO 0630 [facility] Last Admin: 02/01/17 06:05 Dose: 40 mg Polyethylene Glycol (Miralax) 17 gm PO BID [facility] Last Admin: 02/01/17 17:42 Dose: 17 gm Potassium Chloride (K-Dur 20 Meq Er Tab) 20 meq PO TID [facility] Last Admin: 02/01/17 17:41 Dose: 20 meq Warfarin Sodium (Coumadin) 3 mg PO 1800 [facility] PRN Reason: Protocol Last Admin: 02/01/17 17:42 Dose: 3 mg - Labs Labs: 02/01/17 16:00 02/01/17 16:00 PT 29.6 Seconds (9.9-11.8) H 02/01/17 16:00 INR 2.74 (0.93-1.08) H 02/01/17 16:00 - Constitutional Appears: In Acute Distress - Head Exam Head Exam: ATRAUMATIC, NORMAL INSPECTION, NORMOCEPHALIC - Eye Exam Eye Exam: EOMI, PERRL - ENT Exam ENT Exam: Mucous Membranes Moist - Neck Exam Neck Exam: Normal Inspection - Respiratory Exam Respiratory Exam: Decreased Breath Sounds. absent: Rales, Rhonchi, Wheezes Additional comments: tachypneic - Cardiovascular Exam Cardiovascular Exam: Tachycardia, +S1, +S2. absent: Gallop, Rubs - GI/Abdominal Exam GI & Abdominal Exam: Distended, Soft. absent: Firm, Guarding, Rigid, Tenderness , Rebound - Extremities Exam Extremities Exam: absent: Pedal Edema, Tenderness - Neurological Exam Neurological Exam: Alert, Awake, Oriented x3 - Skin Skin Exam: Dry, Intact, Warm Assessment and Plan - Assessment and Plan (Free Text) Plan: 76yo male with history of diastolic CHF, COPD for which rapid response was called for tachypnea and shortness of breath -Patient was placed on nonrebreather -STAT duoneb administered -EKG revealed sinus tachycardia at 105bpm with no acute ST-T wave changes -CXR revealed bilateral lower lobe infiltrates -Abdominal flat plate revealed mild fecal impaction without evidence of bowel obstruction -CBC, CMP, BNP, Troponin, ABG, PT/PTT -Blood, urine and sputum culture ordered; procalcitonin ordered -Call was put out to PMD, Dr. Morton -Continue with careful IVF hydration in setting of CHF -Antibiotics escalated to meropenem in addition to doxycyline Patient was seen and case discussed with attending, Dr. Roca <Gabrielle Roca - Last Filed: 02/01/17 19:34> Objective - Vital Signs/Intake and Output Vital Signs (last 24 hours): Temp Pulse Resp BP Pulse Ox 97.4 F L 97 H 20 114/73 97 02/01/17 06:00 02/01/17 06:00 02/01/17 06:00 02/01/17 09:42 02/01/17 06:00 - Medications Medications: Current Medications Arformoterol Tartrate (Brovana) 15 mcg IH [id number] [facility] Last Admin: 02/01/17 07:59 Dose: 15 mcg Budesonide (Pulmicort Respules) 0.5 mg IH [id number] [facility] Last Admin: 02/01/17 07:59 Dose: 0.5 mg Docusate Sodium (Colace) 100 mg PO BID [facility] Last Admin: 02/01/17 17:42 Dose: 100 mg Doxycycline Hyclate (Doryx) 100 mg PO Q12 [facility] PRN Reason: Protocol Last Admin: 02/01/17 09:43 Dose: 100 mg Meropenem 1g/NS 100mL IVPB (Meropenem 1g/Ns 100ml Ivpb) 1 gm in 100 mls @ 100 mls/hr IVPB Q12 [facility] PRN Reason: Protocol Stop: 02/08/17 17:57 Last Admin: 02/01/17 18:39 Dose: 100 mls/hr Insulin Human Regular (Humulin R Low) 0 units SC ACHS [facility] PRN Reason: Protocol Last Admin: 02/01/17 17:43 Dose: Not Given Pantoprazole Sodium (Protonix Ec Tab) 40 mg PO 0630 [facility] Last Admin: 02/01/17 06:05 Dose: 40 mg Polyethylene Glycol (Miralax) 17 gm PO BID [facility] Last Admin: 02/01/17 17:42 Dose: 17 gm Potassium Chloride (K-Dur 20 Meq Er Tab) 20 meq PO TID [facility] Last Admin: 02/01/17 17:41 Dose: 20 meq Warfarin Sodium (Coumadin) 3 mg PO 1800 [facility] PRN Reason: Protocol Last Admin: 02/01/17 17:42 Dose: 3 mg - Labs Labs: 02/01/17 16:00 02/01/17 16:00 PT 29.6 Seconds (9.9-11.8) H 02/01/17 16:00 INR 2.74 (0.93-1.08) H 02/01/17 16:00 Attending/Attestation - Attestation I have personally seen and examined this patient.: Yes I have fully participated in the care of the patient.: Yes I have reviewed all pertinent clinical information, including history, physical exam and plan: Yes Notes (Text): 02/01/17 19:31 Patient is noted to have mild dyspnea.
--- NOTE | 2017-02-01 18:17 | PN ---
DATE: 02/01/2017 REFERRING PHYSICIAN: Dr. Morton. SUBJECTIVE: He is out of bed to chair. Breathing is a little better. Complaining about constipatio n. No chest pain, no nausea, no vomiting, no leg pain or leg swelling. OBJECTIVE: GENERAL: In no acute distress. VITAL SIGNS: Temperature is 98, heart rate is 97, respiratory rate is 20, blood pressure 114/73. Pu lse ox 97% on BiPAP with 50% oxygen. HEENT: Moist mucous membranes. Crowded airway. Mallampati score is 4. NECK: Supple. No JVD. LUNGS: Has a few crackles at the bases. HEART: S1 and S2. ABDOMEN: Soft, nontender. No organomegaly. EXTREMITIES: There is no edema. NEUROLOGIC: Awake, alert, follows simple commands. MEDICATIONS: He is on Brovana inhaled twice a day, Colace 100 mg twice a day, Coumadin 3 mg will be given today, doxycycline 100 mg twice a day, insulin coverage, potassium 20 mEq daily, Lasix 40 mg tw ice a day, Protonix 40 mg daily, Pulmicort inhaled twice a day. LABORATORY DATA: Shows INR today 2.05. He had ABGs done today shows pH 7.45, pCO2 of 39, O2 was 76; this was on 40% oxygen. Sodium 136, potassium 4.0, chloride 97, bicarbonate 33, BUN 45, creatinine 1.2, glucose 166, calcium is 9.3. Microbiology: Blood cultures have been negative. IMPRESSION AND PLAN: Chronic obstructive lung disease, interstitial infiltrate, pulmonary fibrosis, bronchiectasis, lobar septal thickening, sleep apnea syndrome, diabetes, morbid obesity, cardiac arrh ythmia, heart failure. He is slowly improving. Constipated. Continue bronchodilator. Keep head el evated at 45 degree. Continue diuretics. Encourage BiPAP use at nighttime. May give him MiraLax 1 packet twice a day. INR in the morning. Thank you and will follow with you. Joel Gómez MD cc: [phone] TT: 02/01/2017 18:17:03 Confirmation # [id number] Dictation # [id number]
[2017-02-01] MEDS: Meropenem 1g/NS 100mL IVPB 1 GM/100 ML PIGGYBACK IVPB SCH (18:39)
[2017-02-01 20:44] LABS: URINE BILIRUBIN NEGATIVE (NEGATIVE); URINE BLOOD LARGE (NEGATIVE); URINE GLUCOSE (UA) NEGATIVE (NEGATIVE); URINE KETONE NEGATIVE (NEGATIVE); URINE LEUKOCYTE ESTERASE SMALL Leu/uL (NEGATIVE); URINE PROTEIN 30 mg/dL (<30 mg/dL)
[2017-02-01 20:46] LABS: URINE APPEARANCE SL CLOUDY (CLEAR); URINE COLOR YELLOW (YELLOW)
[2017-02-01 20:59] LABS: URINE RBC TNTC /hpf (0-2)
[2017-02-01 21:00] LABS: URINE BACTERIA MOD (NEG); URINE WBC 15 - 20 /hpf (0-6)
[2017-02-02] MEDS: Pantoprazole 40 mg EC Tab PO SCH (06:41)
[2017-02-02] MEDS: Budesonide 0.5 mg/2 ml Inhal Susp UD IH SCH ×2 (07:33→21:05)
[2017-02-02] MEDS: Arformoterol 15 mcg/2 ml Inh Sol IH SCH ×2 (07:33→21:05)
--- NOTE | 2017-02-02 07:57 | CP.PCM.PN ---
Subjective - Date & Time of Evaluation Date of Evaluation: 02/02/17 Time of Evaluation: 07:00 - Subjective Subjective: Stable on 3R. Events of yesterday noted. Constipated. BiPap at night. Less SOB. PE: Lungs: few rhonchi Cor.: S1S2 Abd.: soft Ext.: no edema Neuro.: alert Labs 02/01 noted. INR 2.74 BC x2 NG at 3 days CXR 02/01:Bilat lower lobe infiltrates Abd. Xray: Mild fecal impaction. Objective - Vital Signs/Intake and Output Vital Signs (last 24 hours): Temp Pulse Resp BP Pulse Ox 97.4 F L 87 20 114/73 97 02/01/17 06:00 02/01/17 23:00 02/01/17 06:00 02/01/17 09:42 02/01/17 06:00 Intake and Output: 02/02/17 02/02/17 06:59 18:59 Intake Total 120 Output Total 100 Balance 20 - Medications Medications: Current Medications Arformoterol Tartrate (Brovana) 15 mcg IH [id number] [facility] Last Admin: 02/02/17 07:33 Dose: 15 mcg Budesonide (Pulmicort Respules) 0.5 mg IH [id number] [facility] Last Admin: 02/02/17 07:33 Dose: 0.5 mg Docusate Sodium (Colace) 100 mg PO BID [facility] Last Admin: 02/01/17 17:42 Dose: 100 mg Doxycycline Hyclate (Doryx) 100 mg PO Q12 [facility] PRN Reason: Protocol Last Admin: 02/01/17 22:20 Dose: 100 mg Furosemide (Lasix) 40 mg PO DAILY [facility] Meropenem 1g/NS 100mL IVPB (Meropenem 1g/Ns 100ml Ivpb) 1 gm in 100 mls @ 100 mls/hr IVPB Q12 [facility] PRN Reason: Protocol Stop: 02/08/17 17:57 Last Admin: 02/01/17 18:39 Dose: 100 mls/hr Insulin Human Regular (Humulin R Low) 0 units SC ACHS [facility] PRN Reason: Protocol Last Admin: 02/01/17 17:43 Dose: Not Given Pantoprazole Sodium (Protonix Ec Tab) 40 mg PO 0630 [facility] Last Admin: 02/02/17 06:41 Dose: 40 mg Polyethylene Glycol (Miralax) 17 gm PO BID [facility] Last Admin: 02/01/17 17:42 Dose: 17 gm Potassium Chloride (K-Dur 20 Meq Er Tab) 20 meq PO DAILY [facility] Warfarin Sodium (Coumadin) 3 mg PO 1800 [facility] PRN Reason: Protocol Last Admin: 02/01/17 17:42 Dose: 3 mg - Labs Labs: 02/01/17 16:00 02/01/17 16:00 PT 29.6 Seconds (9.9-11.8) H 02/01/17 16:00 INR 2.74 (0.93-1.08) H 02/01/17 16:00 Assessment and Plan - Assessment and Plan (Free Text) Plan: Assessment: Dyspnea COPD exacerbation/Cor Pulmonale Pulmonary Fibrosis DEJAN CAD, mild on cath Diabetes CKD PAF DVT HBP HLD BPH CVD Constipated Plan; Await AM labs. PO Lasix and PO KCL Pulm tx. As per Pulmike, ID and Dr. Morton OOB/PT D/C Jono
[2017-02-02 08:18] LABS: BLOOD UREA NITROGEN 40 mg/dL (7-21); CALCIUM 9.3 mg/dL (8.4-10.5); CARBON DIOXIDE 32 mmol/L (21-33); GFR AFRICAN-AMERICAN > 60; GLUCOSE,RANDOM 100 mg/dL (70-110); POTASSIUM 4.2 mmol/L (3.6-5.0); SODIUM 136 mmol/L (132-148)
[2017-02-02 08:22] LABS: INR 2.47 (0.93-1.08)
[2017-02-02] MEDS: Insulin Reg-LOW-Coverage SC SCH ×4 (08:25→21:40)
[2017-02-02 08:29] LABS: CHLORIDE 98 mmol/L (95-110)
[2017-02-02] MEDS: Potassium Chloride 20 mEq ER Tab PO SCH (09:40)
[2017-02-02] MEDS: Meropenem 1g/NS 100mL IVPB 1 GM/100 ML PIGGYBACK IVPB SCH ×2 (09:47→21:44)
[2017-02-02] MEDS: POLYETHYLENE GLYCOL 3350 17 GM/Dose PACKET PO SCH ×2 (09:48→19:40)
--- NOTE | 2017-02-02 10:15 | CARD ---
APPROVED REPORT EKG Measurement Heart [id number] <Conclusion> Normal sinus rhythm Left axis deviation Anteroseptal infarct, age undetermined NSSTW changes No change
--- NOTE | 2017-02-02 12:23 | PN ---
DATE: 02/02/2017 SUBJECTIVE: The patient is sitting up in a chair in no acute distress. He denies chest pain or shor tness of breath. Above events from yesterday afternoon were noted where a rapid response was called on the patient for acute shortness of breath. The patient is in no acute distress at the present elmer e. OBJECTIVE: VITAL SIGNS: Blood pressure 149/86, temperature 97.3, pulse 84, respiratory rate 18. LUNGS: Show a few scattered crepitations at the bases. HEART: Regular rate and rhythm. ABDOMEN: Soft, nontender. Bowel sounds are normoactive. EXTREMITIES: Without cyanosis, clubbing, or edema. NEUROLOGIC: The patient is awake and oriented x 3 without focal sensory or motor deficits. SKIN: Warm and dry. LABORATORY DATA: WBC is 11.4, hemoglobin 15.0, hematocrit 45.9. Sodium 136, potassium 4.2, chloride 98, CO2 of 32, BUN 40, creatinine 1.2, glucose 100. INR is 2.47. Chest x-ray performed yesterday, 02/01, shows bilateral lower lobe infiltrates. IMPRESSION: 1. Congestive heart failure/cor pulmonale. 2. Chronic obstructive pulmonary disease with bronchitis, rule out hospital-acquired pneumonia. 3. Coronary artery disease. 4. Type 2 diabetes mellitus/obesity. 5. Hypertension. 6. Hypercholesterolemia. 7. Paroxysmal atrial fibrillation. 8. Chronic kidney disease. PLAN: Continue infectious disease followup with Dr. Gomez. The patient has been started on ashley openem 1 gram IV q. 12 hours. Continue pulmonary followup with Dr. Gómez and cardiology followup [facility] Dr. Rodriguez. Physicals therapy and social work for discharge planning. David Morton JD, MD cc: 353 TT: 02/02/2017 12:22:44 Confirmation # [id number] Dictation # [id number] martha
--- NOTE | 2017-02-02 17:47 | PN ---
DATE: 02/02/2017 The patient is in bed, was seen earlier this morning in 376, bed 1. The patient has had no fevers and had an uneventful night. PHYSICAL EXAMINATION: VITAL SIGNS: Temperature is 98, blood pressure is 120/80, respiratory rate of 16. HEENT: Unremarkable. NECK: Supple. LUNGS: Have decreased breath sounds. HEART: Normal S1, S2. ABDOMEN: Soft, nontender. LABORATORY DATA: Reveals a white count of 11,000, hemoglobin of 15, platelets of 168. Chemistries r eveal the BUN of 40, creatinine of 1.2, procalcitonin 0.05. Urinalysis is noted. Blood cultures are no growth. Review of orders reveals the patient to be on doxycycline and meropenem and repeat last cultures are p ending. The patient's procalcitonin from yesterday is 0.05. Dr. Morton's progress note from today is reviewed. ASSESSMENT AND PLAN: This 76-year-old male was seen earlier this morning in 376, bed 1 with systemic inflammatory response syndrome, decompensated congestive heart failure, cor pulmonale, hypertension, diabetes mellitus, chronic renal failure, chronic congestive heart failure, atrial fibrillation and morbid obesity, now on day #2 of meropenem. The patient had a rapid response yesterday. Repeat last cultures, blood, urine and sputum were ordered. The patient is on day #8 of doxycycline and day #2 o f meropenem pending repeat last cultures, although the procalcitonin from yesterday is normal. Will f ollow with you. Awaiting repeat culture results and if they are reported to be negative, will discon tinue the antibiotics. Monty Gomez MD cc: 350 TT: 02/02/2017 17:47:21 Confirmation # [id number] Dictation # [id number] mn
--- NOTE | 2017-02-02 17:54 | PN ---
DATE: 02/02/2017 REFERRING PHYSICIAN: Dr. Morton. SUBJECTIVE: The patient is lying in the bed, head at 45 degrees. Family is at bedside. Night was u nremarkable, feels better, tolerated BiPAP well. Still has some shortness of breath. No cough, no ch est pain, no nausea, no vomiting, no diarrhea. No leg pain or leg swelling. OBJECTIVE: GENERAL: No acute distress. VITAL SIGNS: Temperature is 98, heart rate 97, respiratory rate is 20, blood pressure 126/85, pulse ox 95% on nasal cannula. HEENT: Moist mucous membranes. Crowded airway. Mallampati score is 4. NECK: Supple. No JVD. LUNGS: Has basilar crackles. HEART: S1, S2. ABDOMEN: Soft, nontender. No organomegaly. EXTREMITIES: There is no edema. NEUROLOGIC: Awake, alert, follows simple commands. MEDICATIONS: He is on Brovana 15 mcg inhaled twice a day, Colace 100 mg twice a day, Coumadin 3 mg d aily basis, given doxycycline 100 mg twice a day, insulin coverage, potassium 20 mEq daily, Lasix 20 mg daily, meropenem 1 g q. 12 hours, MiraLax 17 grams twice a day, Protonix 40 mg daily, Pulmicort in haled twice a day. LABORATORY DATA: Shows INR today 2.47. Sodium 136, potassium 4.2, chloride 98, bicarbonate 32, BUN 40, creatinine 1.2, glucose 100, calcium is 9.3. Microbiology: Blood cultures have been negative. IMPRESSION AND PLAN: Chronic obstructive lung disease, interstitial infiltrate, pulmonary fibrosis, bronchiectasis, lobar septal thickness, sleep apnea syndrome, diabetes, morbid obesity, cardiac arrhy thmia, heart failure, activities of daily living dysfunction. Requesting nursing staff to get patien t out of bed to chair for a while. Continue BiPAP while sleeping, bronchodilator, diuretics, gastric prophylaxis, anticoagulation. Follow up INR in the morning. We will follow with you. Joel Gómez MD cc: 336 TT: 02/02/2017 17:53:47 Confirmation # [id number] Dictation # [id number] rn
[2017-02-03] MEDS: Pantoprazole 40 mg EC Tab PO SCH (06:17)
[2017-02-03 06:55] LABS: INR 1.93 (0.93-1.08)
[2017-02-03 06:56] LABS: BLOOD UREA NITROGEN 30 mg/dL (7-21); CALCIUM 8.9 mg/dL (8.4-10.5); CARBON DIOXIDE 30 mmol/L (21-33); CHLORIDE 101 mmol/L (98-107); GFR AFRICAN-AMERICAN > 60; GLUCOSE,RANDOM 94 mg/dL (70-110); POTASSIUM 4.2 mmol/L (3.6-5.0); SODIUM 136 mmol/L (132-148)
--- NOTE | 2017-02-03 07:47 | CP.PCM.PN ---
Subjective - Date & Time of Evaluation Date of Evaluation: 02/03/17 Time of Evaluation: 07:00 - Subjective Subjective: Stable on 3R. No CP. BiPap at night. Less SOB. PE: Lungs: few rhonchi Cor.: S1S2 Abd.: soft Ext.: no edema Neuro.: alert I/O = 360/1000 Labs 02/03 noted. INR 1.93 ECG 02/02 : RSR, ASMI, LAD, no change BC x2 NG at 4 days CXR 02/01: Bilat lower lobe infiltrates Abd. Xray: Mild fecal impaction. Objective - Vital Signs/Intake and Output Vital Signs (last 24 hours): Temp Pulse Resp BP Pulse Ox 98.3 F 84 19 126/85 95 02/02/17 17:00 02/03/17 04:20 02/02/17 17:00 02/02/17 17:00 02/02/17 17:00 Intake and Output: 02/03/17 02/03/17 06:59 18:59 Intake Total 360 Output Total 1000 Balance -640 - Medications Medications: Current Medications Arformoterol Tartrate (Brovana) 15 mcg IH [id number] [facility] Last Admin: 02/02/17 21:05 Dose: 15 mcg Budesonide (Pulmicort Respules) 0.5 mg IH [id number] [facility] Last Admin: 02/02/17 21:05 Dose: 0.5 mg Docusate Sodium (Colace) 100 mg PO BID [facility] Last Admin: 02/02/17 17:25 Dose: Not Given Doxycycline Hyclate (Doryx) 100 mg PO Q12 [facility] PRN Reason: Protocol Last Admin: 02/02/17 21:44 Dose: 100 mg Furosemide (Lasix) 40 mg PO DAILY [facility] Last Admin: 02/02/17 09:39 Dose: 40 mg Meropenem 1g/NS 100mL IVPB (Meropenem 1g/Ns 100ml Ivpb) 1 gm in 100 mls @ 100 mls/hr IVPB Q12 [facility] PRN Reason: Protocol Stop: 02/08/17 17:57 Last Admin: 02/02/17 21:44 Dose: 100 mls/hr Insulin Human Regular (Humulin R Low) 0 units SC ACHS [facility] PRN Reason: Protocol Last Admin: 02/02/17 21:40 Dose: Not Given Pantoprazole Sodium (Protonix Ec Tab) 40 mg PO 0630 [facility] Last Admin: 02/03/17 06:17 Dose: 40 mg Polyethylene Glycol (Miralax) 17 gm PO BID [facility] Last Admin: 02/02/17 19:40 Dose: Not Given Potassium Chloride (K-Dur 20 Meq Er Tab) 20 meq PO DAILY [facility] Last Admin: 02/02/17 09:40 Dose: 20 meq Warfarin Sodium (Coumadin) 3 mg PO 1800 [facility] PRN Reason: Protocol Last Admin: 02/02/17 19:38 Dose: 3 mg - Labs Labs: 02/01/17 16:00 02/03/17 06:15 PT 20.8 Seconds (9.9-11.8) H 02/03/17 06:15 INR 1.93 (0.93-1.08) H 02/03/17 06:15 Assessment and Plan - Assessment and Plan (Free Text) Plan: Assessment: Dyspnea COPD exacerbation/Cor Pulmonale Pulmonary Fibrosis DEJAN CAD, mild on cath Diabetes CKD PAF DVT HBP HLD BPH CVD Constipated Plan; PO Lasix and PO KCL Pulm tx. Check recent cultures: D/C AB if neg. As per Pulmike, ID and Dr. Morton OOB/PT D/C [facility] soon. Close out-pt f/u.
[2017-02-03] MEDS: Arformoterol 15 mcg/2 ml Inh Sol IH SCH ×2 (08:20→20:27)
[2017-02-03] MEDS: Budesonide 0.5 mg/2 ml Inhal Susp UD IH SCH ×2 (08:20→20:28)
[2017-02-03] MEDS: Insulin Reg-LOW-Coverage SC SCH ×4 (09:14→22:34)
[2017-02-03] MEDS: Potassium Chloride 20 mEq ER Tab PO SCH (10:29)
[2017-02-03] MEDS: POLYETHYLENE GLYCOL 3350 17 GM/Dose PACKET PO SCH ×2 (10:30→18:36)
[2017-02-03] MEDS: Meropenem 1g/NS 100mL IVPB 1 GM/100 ML PIGGYBACK IVPB SCH (10:30)
--- NOTE | 2017-02-03 12:36 | PN ---
DATE: 02/03/2017 SUBJECTIVE: The patient is out of bed, in a chair, in no acute distress. He denies chest pain or sh ortness of breath. There is no cough. There is mild dyspnea on exertion. OBJECTIVE: VITAL SIGNS: Blood pressure 125/86, temperature 97.6, pulse 83, respiratory rate 20. LUNGS: Show a few scattered crepitations at the bases. HEART: Regular rate and rhythm. ABDOMEN: Soft, nontender, bowel sounds are normoactive. EXTREMITIES: Without cyanosis, clubbing, or edema. NEUROLOGIC: The patient is awake and oriented x 3 without focal sensory or motor deficits. SKIN: Warm and dry. IMPRESSION: 1. Congestive heart failure/cor pulmonale. 2. Chronic obstructive pulmonary disease with bronchitis, rule out hospital-acquired pneumonia versu s sepsis. 3. Coronary artery disease. 4. Type 2 diabetes mellitus/obesity. 5. Hypertension. 6. Hypercholesterolemia. 7. Paroxysmal atrial fibrillation. 8. Chronic kidney disease. PLAN: Continue infectious disease followup with Dr. Gomez. The patient is on meropenem 1 gram IV q. 12 hours. Septic workup is pending. Continue pulmonary followup with Dr. Gómez and cardiolog y followup with Dr. Rodriguez. Physical therapy and social work for discharge planning. David Morton JD, MD cc: 353 TT: 02/03/2017 12:35:39 Confirmation # [id number] Dictation # [id number] en
--- NOTE | 2017-02-03 17:35 | CP.PCM.PN ---
Subjective - Date & Time of Evaluation Date of Evaluation: 02/03/17 Time of Evaluation: 11:35 - Subjective Subjective: Afebrile, not in distress. Objective - Vital Signs/Intake and Output Vital Signs (last 24 hours): Temp Pulse Resp BP Pulse Ox 98.3 F 84 19 126/85 95 02/02/17 17:00 02/03/17 04:20 02/02/17 17:00 02/02/17 17:00 02/02/17 17:00 Intake and Output: 02/03/17 02/03/17 06:59 18:59 Intake Total 360 Output Total 1000 Balance -640 - Medications Medications: Current Medications Arformoterol Tartrate (Brovana) 15 mcg IH [id number] [facility] Last Admin: 02/03/17 08:20 Dose: 15 mcg Budesonide (Pulmicort Respules) 0.5 mg IH [id number] [facility] Last Admin: 02/03/17 08:20 Dose: 0.5 mg Docusate Sodium (Colace) 100 mg PO BID [facility] Last Admin: 02/02/17 17:25 Dose: Not Given Doxycycline Hyclate (Doryx) 100 mg PO Q12 [facility] PRN Reason: Protocol Last Admin: 02/02/17 21:44 Dose: 100 mg Furosemide (Lasix) 40 mg PO DAILY [facility] Last Admin: 02/02/17 09:39 Dose: 40 mg Meropenem 1g/NS 100mL IVPB (Meropenem 1g/Ns 100ml Ivpb) 1 gm in 100 mls @ 100 mls/hr IVPB Q12 [facility] PRN Reason: Protocol Stop: 02/08/17 17:57 Last Admin: 02/02/17 21:44 Dose: 100 mls/hr Insulin Human Regular (Humulin R Low) 0 units SC ACHS [facility] PRN Reason: Protocol Last Admin: 02/03/17 09:14 Dose: Not Given Pantoprazole Sodium (Protonix Ec Tab) 40 mg PO 0630 [facility] Last Admin: 02/03/17 06:17 Dose: 40 mg Polyethylene Glycol (Miralax) 17 gm PO BID [facility] Last Admin: 02/02/17 19:40 Dose: Not Given Potassium Chloride (K-Dur 20 Meq Er Tab) 20 meq PO DAILY [facility] Last Admin: 02/02/17 09:40 Dose: 20 meq Warfarin Sodium (Coumadin) 3 mg PO 1800 [facility] PRN Reason: Protocol Last Admin: 02/02/17 19:38 Dose: 3 mg - Labs Labs: 02/01/17 16:00 02/03/17 06:15 PT 20.8 Seconds (9.9-11.8) H 02/03/17 06:15 INR 1.93 (0.93-1.08) H 02/03/17 06:15 - Constitutional Appears: Non-toxic, No Acute Distress - Head Exam Head Exam: NORMAL INSPECTION - ENT Exam ENT Exam: Mucous Membranes Moist - Neck Exam Neck Exam: absent: Lymphadenopathy, Meningismus - Respiratory Exam Respiratory Exam: Decreased Breath Sounds - Cardiovascular Exam Cardiovascular Exam: +S1, +S2 - GI/Abdominal Exam GI & Abdominal Exam: Soft. absent: Tenderness Assessment and Plan - Assessment and Plan (Free Text) Plan: Assessment Systemic Inflammatory response Syndrome, consider secondary to acute decompensated heart failure, unlikely healthcare-associated pneumonia HTN DM chronic renal failure CAD chronic CHF cor pulmonale atrial fibrillation morbid obesity with BMI 42 Plan will discontinue antibiotics since cultures have been negative and observe patient continue to be on treatment for his CHF will continue to monitor clinically
[2017-02-04] MEDS: Pantoprazole 40 mg EC Tab PO SCH (06:05)
--- NOTE | 2017-02-04 07:21 | PN ---
DATE: 02/03/2017 SUBJECTIVE: He is sitting side of the bed. Family is at bedside. Night was unremarkable. Tolerated BiPAP well, on supplemental oxygen. Decreased cough. Decreased shortness of breath. No nausea, no vomiting, no diarrhea. No leg pain or leg swelling. OBJECTIVE: GENERAL: No acute distress. VITAL SIGNS: Temperature is 98, heart rate is 94, respiratory rate is 20, blood pressure 136/85, pul se ox 97% on nasal cannula. HEENT: Moist mucous membranes. Crowded airway. Mallampati score is 4. NECK: Supple. No JVD. LUNGS: Have fair airflow with few rhonchi. HEART: S1 and S2. ABDOMEN: Soft, nontender. No organomegaly. EXTREMITIES: There is no edema. NEUROLOGIC: Awake, alert, follows simple commands. MEDICATIONS: The patient is on Brovana 15 mcg inhaled twice a day, Colace 100 mg twice a day, Coumad in 3 mg given today, potassium 20 mEq daily, Lasix 40 mg daily, MiraLax 17 grams twice a day, Protoni x 40 mg daily, Pulmicort inhaled twice a day. LABORATORY DATA: Shows INR of 1.93. Sodium 136, potassium 4.2, chloride 105, bicarbonate 33, BUN 30 , creatinine 1.1, glucose 94, calcium is 8.9. IMPRESSION AND PLAN: Chronic obstructive lung disease, interstitial infiltrates, pulmonary fibrosis, bronchiectasis, lobar septal thickness, sleep apnea syndrome, diabetes, morbid obesity, cardiac arrh ythmia, heart failure, activities of daily living dysfunction. Pulmonary point of view, doing okay. Continue bronchodilator. Keep head at 45 degree. Diuretics. Gastric prophylaxis. Deep venous thro mbosis prophylaxis. BiPAP use at night. Follow up INR in the morning. We will follow with you. Joel Gómez MD cc: 336 TT: 02/04/2017 07:20:36 Confirmation # [id number] Dictation # [id number] nuno
[2017-02-04] MEDS: Budesonide 0.5 mg/2 ml Inhal Susp UD IH SCH (08:03)
[2017-02-04] MEDS: Arformoterol 15 mcg/2 ml Inh Sol IH SCH (08:03)
[2017-02-04 08:31] VITALS: BP 118/74; PULSE 86; RESP 20; TEMP 97.6; O2SAT 96
[2017-02-04] MEDS: Potassium Chloride 20 mEq ER Tab PO SCH (08:59)
[2017-02-04] MEDS: Insulin Reg-LOW-Coverage SC SCH ×2 (09:00→11:48)
[2017-02-04] MEDS: POLYETHYLENE GLYCOL 3350 17 GM/Dose PACKET PO SCH (09:01)
--- NOTE | 2017-02-04 15:21 | PN ---
DATE: 02/04/2017 SUBJECTIVE: The patient is out of bed in a chair in no acute distress. He denies any chest pain or shortness of breath. There is no cough. There is mild dyspnea on exertion. OBJECTIVE: VITAL SIGNS: Blood pressure 118/74, temperature 97.6, pulse 86, respiratory rate 20. LUNGS: Show a few scattered crepitations at the bases. HEART: Regular rate and rhythm. ABDOMEN: Soft, nontender, bowel sounds are normoactive. EXTREMITIES: Without cyanosis, clubbing, or edema. NEUROLOGIC: The patient is awake and oriented x 3 without focal sensory or motor deficits. SKIN: Warm and dry. IMPRESSION: 1. Congestive heart failure/cor pulmonale. 2. Chronic obstructive pulmonary disease with bronchitis, clinically improved. 3. Coronary artery disease. 4. Type 2 diabetes mellitus/obesity. 5. Hypertension. 6. Hypercholesterolemia. 7. Paroxysmal atrial fibrillation on Coumadin. 8. Chronic kidney disease. PLAN: IV antibiotics have been discontinued and septic workup is negative. Continue pulmonary follo wup with Dr. Gómez, cardiology followup with Dr. Rodriguez, [facility]. David Morton JD, MD cc: 353 TT: 02/04/2017 15:21:19 Confirmation # [id number] Dictation # [id number] lai
--- NOTE | 2017-02-04 19:04 | PN ---
DATE: 02/04/2017 REFERRING PHYSICIAN: Dr. Morton. SUBJECTIVE: He is sitting up in a chair on supplemental oxygen. is at bedside. Feels better, still gets short of breath with exertion. Not much cough. No sputum production. No nausea, no vomi ting, diarrhea. No leg pain or leg swelling. OBJECTIVE: GENERAL: No acute distress. VITAL SIGNS: Temperature is 98, heart rate is 86, respiratory rate is 20, blood pressure 118/74, pul se ox 96% on nasal cannula. HEENT: Moist mucous membranes. Crowded airway. Mallampati score is 4. NECK: Supple. No JVD. LUNGS: Has basilar crackles. HEART: S1, S2. ABDOMEN: Soft, nontender. No organomegaly. EXTREMITIES: There is not much edema. NEUROLOGIC: Awake, alert, follows simple command. MEDICATIONS: He is on Brovana 15 mcg inhaled twice a day, Colace 100 mg twice a day, Coumadin 3 mg, given potassium 20 mEq daily, Lasix 40 mg daily, MiraLax 17 grams p.o. twice a day, Protonix 40 mg [place], Pulmicort inhaled twice a day. LABORATORY DATA: Reviewed. Noted blood sugar this morning 136. IMPRESSION AND PLAN: Chronic obstructive lung disease, interstitial infiltrates, pulmonary fibrosis, bronchiectasis, septal thickness, sleep apnea syndrome, diabetes, morbid obesity, cardiac arrh ythmia, heart failure, activities of daily living dysfunction. I spoke to patient's at bedside. All their questions answered. Continue diuretics, afterload patient case coordinator, bronchodilators. Encourage B iPAP use at night. Fall precautions. Anticoagulation. Follow up INR. We will follow with you. Joel Gómez MD cc: 336 TT: 02/04/2017 19:03:50 Confirmation # [id number] Dictation # [id number] tn
--- NOTE | 2017-02-04 22:47 | CARD ---
APPROVED REPORT EKG Measurement Heart [id number] <Conclusion> Sinus tachycardia Possible Left atrial enlargement Left axis deviation Anteroseptal infarct, age undetermined Abnormal ECG
--- NOTE | 2017-02-05 11:21 | DS ---
HOSPITAL COURSE: The patient is a 76-year-old male admitted on 01/26/2017 in respiratory distress. Th e patient was treated for an exacerbation of COPD with pneumonia with IV antibiotics as well as conge stive failure. He was seen in cardiology consultation by Dr. Rodriguez as well as pulmonary consultatio n with Dr. Gómez, and infectious disease consultation with Dr. Gomez. He was discharged to sub acute rehab facility on 02/04/2017 in stable condition on the following medications: Coumadin 3 mg [place], Lasix 40 mg daily, prednisone, Protonix 40 mg daily, Brovana and Pulmicort inhalation. The rose ent was discharged on a heart-healthy diet, activities as per the rehabilitation facility. IMPRESSION: 1. Congestive heart failure/cor pulmonale. 2. Chronic obstructive pulmonary disease with pneumonia, clinically improved. 3. Coronary artery disease. 4. Type 2 diabetes mellitus/obesity. 5. Hypertension. 6. Hypercholesterolemia. 7. Paroxysmal atrial fibrillation on Coumadin. 8. Chronic kidney disease. David Morton JD, MD cc: 353 TT: 02/05/2017 11:20:43 lai
--- NOTE | 2017-02-05 14:29 | PQF SEPSIS ---
02/05/17 Dr. Morton, Sepsis is mentioned in the ED notes, on consult of 01/26, and progress note of . Was sepsis ruled in, ruled out, undetermined, other? If sepsis was ruled in , was this present on admission? Thank you. Clarification of your documentation is requested to better reflect the severity of illness and intensity of treatment of your patient. Indicators present [] Temp < 96.8 or > 100.4 [] WBC count > 12,000/mm3 or <000/mm3 or 10% immature neutrophils [] Heart Rate > 90 [] Respiratory Rate > 20 [] Fever or hypothermia [] Chills [] Positive blood cultures [] Hypotension [] Metabolic acidosis (Elevated lactate level, anion gap or reduced blood pH) [] Acute confusion /Altered Mental Status [] Shock [] Other: [] Location in the medical record that reflects the above clinical findings: [] Treatment Provided: [] PHYSICIAN'S RESPONSE Based on your medical judgment of the clinical indicators outlined above, are you treating this patient for a known or suspected: [] Sepsis / Septicemia Please specify organism if known [] [] SIRS (Systemic Inflammatory Response Syndrome) [] Severe Sepsis (Sepsis with Associated Organ Dysfunction) [] Fever of Unknown Origin [] Other, please indicate: [] [] If Unable to Determine, please check the box, sign and date. Present On Admission (POA) Indicator: [] Present at the time of admission [x] Not present at the time of admission [] Clinically Undetermined In responding to this query, please exercise your independent professional judgment. The fact that a question is asked does not imply that any particular answer is desired or expected. Thank you for your clarification on this documentation. If you have any questions please call:[ ] * Thank you, [ ] front desk clerk LUISA
--- NOTE | 2017-02-05 14:31 | PQF RESP ---
02/05/17 Dr. Gómez, You document respiratory failure with hypoxia in your notes. Please indicate whether this was acute, chronic, or both. Also, was this present on admission? Thank you. Clarification of your documentation is requested to better reflect the severity of illness and intensity of treatment of your patient. Indicators present [] Use of Home Oxygen [] Respiratory rate > 28 or <8/min (Labored respirations) [] PCO2 > 50 mm Hg or (Hypercapnia) (somnolence) [] PaO2 < 60 mm Hg or Hypoxemia (confusion) [] ABG blood gas pH < 7.35 [] SpO2 < 90% sat on Room Air [] Cyanosis [] Unable to Speak in Full Sentences [] Use of Accessory Muscles / Tripoding [] Wheezing [] Other: [] Location in the medical record that reflects the above clinical findings: [] Treatment Provided: [] PHYSICIAN'S RESPONSE Based on your medical judgment of the clinical indicators outlined above, are you treating this patient for a known or suspected: [] Acute Respiratory Failure (hypoxia or hypercapnia) [] Chronic Respiratory Failure (hypoxia or hypercapnia) [] Acute on Chronic Respiratory Failure (hypoxia or hypercapnia) [] Hypoxemia please specify ACUTE, CHRONIC or ACUTE on CHRONIC [] Other []_ [] If unable to determine, please check the box, sign and date. Present On Admission (POA) Indicator: [] Present at the time of admission [] Not present at the time of admission [] Clinically Undetermined In responding to this query, please exercise your independent professional judgment. The fact that a question is asked does not imply that any particular answer is desired or expected. Thank you for your clarification on this documentation. 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 In theory, respiratory failure is defined as a Pa02 value of <60 mm/Hg or a PaC02 of >50 mm/Hg. However, these values may be affected by renal compensation. Respiratory failure may be acute or chronic. While acute respiratory failure is characterized by life-threatening derangement in arterial blood gases and acid-base balance, the manifestations of chronic respiratory failure are less dramatic and may not be as readily apparent. Classifications: Respiratory failure may be classified as hypoxemic (usually characterized by Pa02 of <60 mm/Hg) or hypercapnic (usually characterized by PaC02 >50 mm/Hg) and either may be acute or chronic. Chronic hypercapnic respiratory failure develops over time and allows for renal compensation and an increase in bicarbonate concentration; therefore the pH is usually only slightly decreased. The distinction between acute and chronic hypoxemic respiratory failure cannot readily be made on the basis of ABGs; the clinical markers of chronic hypoxemia, such as polythycemia or cor pulmonale suggest a long standing disorder (chronic hypoxemic respiratory failure). Clinical Indicators: dyspnea at rest or "chronic" dyspnea, concomitant conditions such as polycythemia or cor pulmonale, requirement for continuous oxygen support, forced expiratory volume in one second (FEV1) of 49 or less, pursed lip breathing, "barrel" chest, hyperinflation by CXR, muscle wasting, malnutrition/obesity, poor exercise capacity, peripheral edema, description as a "blue bloater" (usually associated with chronic, obstructive bronchitis) or "pink puffer" (usually associated with emphysema) Risks: Chronic Hypoxemic Respiratory Failure - COPD, pulmonary fibrosis, asthma , pulmonary arterial hypertension, granulomatous lung diseases, congenital heart disease, bronchiectasis, kyphoscoliosis, obesity; Chronic Hypercapnic Respiratory Failure - COPD, severe asthma, myasthenia gravis, polyneuropathy, polio, head and cervical spine injuries, obesity hypoventilation syndrome. Treatment: supplemental oxygen, bronchodilators, corticosteroids, adequate nutrition, lung transplant References: Am. J. Respir. Crit. Care Med. "Global Strategy for the Diagnosis, Management and Prevention of COPD: GOLD Exectuive Summary," Kevin Bedoya Anzueto - 2007; Proceedings of the [employer] "Mechanisms and Measurements of Dyspnea in COPD," Robin - 2006; WebMD; Respiratory Failure, Luca Gan MD - 02/2006; Joe's Principles of Internal Medicine, 17th edition. Acute Respiratory Failure Acute Respiratory Failure indicators include: ~Respirations >28 ~Air hunger ~Use of accessory muscles of respiration ~Inability to speak in full sentences Cyanosis ~Pulse ox <90% RA or <95% on O2 pH <7.35 or >7.45 ~pO2 < 60 mm Hg (or 10mm below COPD patient's baseline) ~pCO2 >50mm Hg (or 10mm above COPD patient's baseline) "Respiratory failure may be assigned as a principal diagnosis when it is the condition established after study to be chiefly responsible for occasioning admission to the hospital. The fact that the respiratory failure was managed without intubation and mechanical ventilation does not preclude its use." [facility], 3rd Qtr., 1988, p. 7 MTDD
--- NOTE | 2017-02-05 14:48 | PQF GENQUE ---
02/05/17 Dr. Morton, Please see result of urine culture. Any diagnosis pertaining to this? Thank you. Clarification of your documentation is requested to better reflect the severity of illness and intensity of treatment of your patient. Indicators present [] Specify: [] [] Specify: [] [] Specify: [] [] Specify: [] Location in the medical record that reflects the above clinical findings: [] Treatment Provided: [] PHYSICIAN'S RESPONSE Based on your medical judgment of the clinical indicators outlined above please clarify the following: [] Practitioner response [] If unable to determine, please check the box, sign and date. Present On Admission (POA) Indicator: [] Present at the time of admission [x] Not present at the time of admission [] Clinically Undetermined In responding to this query, please exercise your independent professional judgment. The fact that a question is asked does not imply that any particular answer is desired or expected. Thank you for your clarification on this documentation. 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
== END 2017-02-04 17:02 | DRG 291 ==
LOC: ED 21:04 → ERH 23:24 → 2RNO 01-27 01:24 → 3RSO 02-01 11:19
PROVIDERS: ADMIT Internal Medicine; ATTEND Internal Medicine
PROC: 02HV33Z Insertion of Infusion Device into Superior Vena Cava, Percutaneous Approach (ICD-10-PCS; principal; 2017-01-29)
PROC: B54NZZA Ultrasonography of Left Upper Extremity Veins, Guidance (ICD-10-PCS; 2017-01-29)
PROC: B51NZZA Fluoroscopy of Left Upper Extremity Veins, Guidance (ICD-10-PCS; 2017-01-29)
DX: I13.0 Hypertensive heart and chronic kidney disease with heart failure and stage 1 through stage 4 chronic kidney disease, or unspecified chronic kidney disease (principal); I50.33 Acute on chronic diastolic (congestive) heart failure; J96.21 Acute and chronic respiratory failure with hypoxia; J18.9 Pneumonia, unspecified organism; I27.2 Other secondary pulmonary hypertension; R65.10 Systemic inflammatory response syndrome (SIRS) of non-infectious origin without acute organ dysfunction; E11.22 Type 2 diabetes mellitus with diabetic chronic kidney disease; J84.10 Pulmonary fibrosis, unspecified; J44.0 Chronic obstructive pulmonary disease with (acute) lower respiratory infection; Z68.41 Body mass index [BMI] 40.0-44.9, adult; J44.1 Chronic obstructive pulmonary disease with (acute) exacerbation; I48.0 Paroxysmal atrial fibrillation; I27.81 Cor pulmonale (chronic); E66.01 Morbid (severe) obesity due to excess calories; E78.00 Pure hypercholesterolemia, unspecified; E78.5 Hyperlipidemia, unspecified; E87.6 Hypokalemia; F17.210 Nicotine dependence, cigarettes, uncomplicated; G47.33 Obstructive sleep apnea (adult) (pediatric); I25.10 Atherosclerotic heart disease of native coronary artery without angina pectoris; I67.9 Cerebrovascular disease, unspecified; N18.9 Chronic kidney disease, unspecified; N40.0 Benign prostatic hyperplasia without lower urinary tract symptoms; T50.2X5A Adverse effect of carbonic-anhydrase inhibitors, benzothiadiazides and other diuretics, initial encounter; K59.00 Constipation, unspecified; Z79.01 Long term (current) use of anticoagulants; Z86.718 Personal history of other venous thrombosis and embolism; Z87.01 Personal history of pneumonia (recurrent); Z95.0 Presence of cardiac pacemaker; Z99.81 Dependence on supplemental oxygen; J47.9 Bronchiectasis, uncomplicated; R82.71 Bacteriuria